=== PATIENT | male | born 1970 | race Asian ===

== ENCOUNTER 2017-12-08 08:00 | Outpatient (CLI) | payer OTHER ==
[2017-12-08 19:03] LABS: BASOPHILS % (AUTO) 0.6 %; EOSINOPHILS % (AUTO) 0.7 %; LYMPHOCYTES # (AUTO) 1.5 10^3/uL (1.5-3.5); LYMPHOCYTES % (AUTO) 25.3 %; MEAN CORPUSCULAR HEMOGLOBIN 33.8 pg (27.0-31.0); MEAN CORPUSCULAR HGB CONC 34.2 g/dL (32.0-36.0); MEAN CORPUSCULAR VOLUME 98.8 fL (80.0-94.0); MEAN PLATELET VOLUME 7.3 fL (7.4-11.4); MONOCYTES # (AUTO) 0.6 10^3/uL (0.0-1.0); MONOCYTES % (AUTO) 10.4 %; NEUTROPHILS # (AUTO) 3.7 10^3/uL (1.5-6.6); PLT - PLATELET COUNT 203 10^3/uL (130-450); RED BLOOD COUNT 4.45 10^6/uL (4.70-6.10); RED CELL DISTRIBUTION WIDTH 12.2 % (12.0-15.0); WHITE BLOOD COUNT 5.9 x10^3/uL (4.8-10.8)
[2017-12-08 19:25] LABS: HB2 TOTAL 16.4 g/dL; HEMOGLOBIN A1C 0.48 g/dL; HEMOGLOBIN A1C % 4.8 % (4.6-6.2)
[2017-12-08 19:33] LABS: ALBUMIN 4.9 g/dL (3.2-5.5); ALBUMIN/GLOBULIN RATIO 1.9 (1.0-2.2); ALKALINE PHOSPHATASE 65 IU/L (42-121); ALT ALANINE AMINOTRANSFERASE 27 IU/L (10-60); AST ASPARTATE AMINOTRANSFERASE 24 IU/L (10-42); BUN - BLOOD UREA NITROGEN 17 mg/dL (6-20); CALCIUM 9.3 mg/dL (8.5-10.3); CARBON DIOXIDE - CO2 27 mmol/L (21-32); CHLORIDE 100 mmol/L (101-111); CHOL/HDL RATIO 3.8 (<5.0); CHOLESTEROL 211 mg/dL; GFR - MDRD 80 (>89); GLUCOSE 94 mg/dL (70-100); HDL CHOLESTEROL 56 mg/dL; LDL CHOLESTEROL,CALCULATED 117 mg/dL; LDL/HDL RATIO 2.1 (<3.6); SODIUM 136 mmol/L (135-145); TOTAL PROTEIN 7.5 g/dL (6.7-8.2); VLDL CHOLESTEROL 38 mg/dL
== END 2017-12-08 08:01 | disposition home or self-care (01) ==
LOC: LAB.WCP 08:00
PROVIDERS: ATTEND Family Medicine
DX: Z00.00 Encounter for general adult medical examination without abnormal findings (principal); R68.82 Decreased libido; F52.21 Male erectile disorder; R53.83 Other fatigue
CPT/HCPCS: 36415; 80053; 80061; 83036; 83721; 84403; 84443; 85025

== ENCOUNTER 2018-01-12 13:41 | Outpatient (CLI) | payer OTHER ==
[2018-01-12 19:32] LABS: BASOPHILS # (AUTO) 0.1 10^3/uL (0.0-0.1); BASOPHILS % (AUTO) 0.9 %; EOSINOPHILS % (AUTO) 0.3 %; HGB - HEMOGLOBIN 14.6 g/dL (14.0-18.0); LYMPHOCYTES # (AUTO) 1.7 10^3/uL (1.5-3.5); MEAN CORPUSCULAR HGB CONC 34.1 g/dL (32.0-36.0); MEAN CORPUSCULAR VOLUME 99.8 fL (80.0-94.0); MEAN PLATELET VOLUME 7.1 fL (7.4-11.4); MONOCYTES # (AUTO) 0.4 10^3/uL (0.0-1.0); MONOCYTES % (AUTO) 7.4 %; NEUTROPHILS # (AUTO) 3.6 10^3/uL (1.5-6.6); NEUTROPHILS % (AUTO) 61.4 %; PLT - PLATELET COUNT 236 10^3/uL (130-450); RED CELL DISTRIBUTION WIDTH 12.5 % (12.0-15.0); WHITE BLOOD COUNT 5.8 x10^3/uL (4.8-10.8)
== END 2018-01-12 13:42 | disposition home or self-care (01) ==
LOC: LAB.WCP 13:41
PROVIDERS: ATTEND Family Medicine
DX: Z12.5 Encounter for screening for malignant neoplasm of prostate (principal); E29.8 Other testicular dysfunction
CPT/HCPCS: 36415; 84153; 84403; 85025

== ENCOUNTER 2018-12-16 02:07 | Emergency (ER) | payer OTHER ==
--- NOTE | 2018-12-16 02:17 | ED Physician Documentation ---
History of Present Illness - Stated complaint Stated Complaint: BLURRY VISION/DIZZY - Chief complaint Chief Complaint: Neuro - History obtained from History obtained from: Patient - History of Present Illness Timing: Other (awoke at 1 AM with symptoms. Last known normal was when he went to sleep at approximately 10 PM) Pain level max: 0 Pain level now: 0 Improved by: no ameliorating factors Worsened by: no exacerbating factors Associated symptoms: dyspnea, nausea/vomiting, blurry vision, numbness - Additonal information Additional information: went to sleep 10 PM asymptomatic, approximately 1 hour after using marijuana (oil; he says this was the first time he ever tried marijuana). At 1 AM, he woke with bilateral blurry vision, dyspnea, nausea and vomiting, numbness left side of body (left face, arm, leg), and generalized weakness. Denies MCNAIR. Review of Systems Constitutional: reports: Reviewed and negative Eyes: reports: Decreased vision. denies: Loss of vision, Photophobia Ears: reports: Reviewed and negative Nose: reports: Reviewed and negative Throat: reports: Reviewed and negative Cardiac: reports: Reviewed and negative Respiratory: reports: Dyspnea. denies: Cough GI: reports: Nausea, Vomiting. denies: Abdominal Pain : denies: Dysuria, Frequency, Incontinent Skin: reports: Reviewed and negative Musculoskeletal: reports: Reviewed and negative Neurologic: reports: Generalized weakness, Numbness. denies: Focal weakness, Headache PD PAST MEDICAL HISTORY - Past Medical History Past Medical History: No - Past Surgical History Past Surgical History: No - Present Medications Home Medications: Ambulatory Orders Medication Instructions Recorded Confirmed Sildenafil Citrate [Viagra] 225 mg PO DAILY 12/16/18 12/16/18 - Allergies Allergies/Adverse Reactions: Allergies Allergy/AdvReac Type Severity Reaction Status Date / Time No Known Drug Allergies Allergy Verified 12/16/18 02:24 - Living Situation Living Arrangement: reports: At home PD ED PE NORMAL - Vitals Vital signs reviewed: Yes - General General: Alert and oriented X 3, Well developed/nourished, Other (appears anxious; tremulous at times during H+P (generalized tremulous, mostly in BLE)) - HEENT HEENT: PERRL, EOMI, Moist mucous membranes, Pharynx benign - Neck Neck: Supple, no meningeal sign, No JVD - Cardiac Cardiac: No murmur - Respiratory Respiratory: No respiratory distress, Clear bilaterally - Abdomen Abdomen: Soft, Non tender - Back Back: No spinal TTP - Derm Derm: Normal color, Warm and dry - Extremities Extremities: Normal ROM s pain, No edema - Neuro Neuro: Alert and oriented X 3, 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, No motor deficit, No sensory deficit, Normal speech Eye Opening: Spontaneous Motor: Obeys Commands Verbal: Oriented GCS Score: 15 PD ED PE EXPANDED - Cardiac Cardiac: Tachy, Regular Rhythm Results - Vitals Vitals: Vital Signs - 24 hr 12/16/18 12/16/18 12/16/18 02:12 02:33 03:21 Temperature 36.1 C L Heart Rate 107 H 100 83 Respiratory 18 20 16 Rate Blood Pressure 141/78 H 154/92 H 128/83 H O2 Saturation 96 95 95 12/16/18 12/16/18 12/16/18 03:58 05:09 06:00 Temperature 37.5 C 36.2 C L Heart Rate 79 85 86 Respiratory 15 18 18 Rate Blood Pressure 118/77 118/75 129/85 H O2 Saturation 96 96 96 Oxygen O2 Source Room air - EKG (time done) No standard instances Rate: Rate (enter#) (104), Tachy Rhythm: Sinus tachycardia [place]: Normal Intervals: Normal ND QRS: Normal Ischemia: Normal ST segments - Labs Labs: Laboratory Tests 12/16/18 12/16/18 12/16/18 02:20 02:20 02:20 WBC 5.6 RBC 4.23 L Hgb 14.7 Hct 41.5 L MCV 98.3 H MCH 34.7 H MCHC 35.3 RDW 12.7 Plt Count 197 MPV 7.1 L Neut # (Auto) 3.3 Lymph # (Auto) 1.6 [place] # (Auto) 0.5 Eos # (Auto) 0.0 Baso # (Auto) 0.1 Absolute Nucleated RBC 0.00 Nucleated RBC % 0.0 Sodium 137 Potassium 2.9 L Chloride 100 L Carbon Dioxide 27 Anion Gap 10.0 BUN 12 Creatinine 0.9 Estimated GFR (MDRD) 90 Glucose 163 H Calcium 9.0 Troponin I < 0.04 - Rads (name of study) CT head Radiology: Prelim report reviewed, See rad report chest xray Radiology: Prelim report reviewed, See rad report PD MEDICAL DECISION MAKING - ED course Complexity details: reviewed results, re-evaluated patient, considered differential, d/w patient ED course: Constellation of signs and symptoms are not c/w CVA. Reassuring test results including CXR, EKG, CTH, and blood tests (hypokalemia noted). Symptoms began shortly after patient used marijuana oil, and he says this is the first time he ever tried marijuana; this could potentially be the cause of his symptoms, but I advised him to f/u with PMD, as further testing might be warranted. I also instructed him to return to the ED immediately if symptoms worsen in any way. During ED stay, on serial reexaminations, his symptoms steadily improved and his symptoms were resolved prior to discharge except some residual difficulty in focusing (blurry vision) in both eyes, but nearly at baseline. Normal retina exam bilaterally prior to discharge (performed with panophthalmoscope) Departure - Departure Disposition: 01 Home, Self Care Clinical Impression: Change in vision, Paresthesia, Hypokalemia Condition: Good Instructions: ED Blurred Vision, ED Potassium Deficiency, ED Paraesthesias Follow-Up: Chay Clemente DO [Primary Care Provider] - (Call in the morning to arrange for next available appointment) Discharge Date/Time: 12/16/18 06:00 NIHSS - Level of Consciousness Level of consciousness: (0) Alert, Keenly responsive LOC Questions: (0) Answers both Q's correct LOC Commands: (0) Performs both correctly - Gaze Best Gaze: (0) Normal - Visual Visual: (0) No loss - Facial Palsy Facial Palsy: (0) Normal, symmetrical movement - Motor Arms (both separate) Motor Arm (right): (0) No drift Motor Arm (left): (0) No drift - Motor Legs (both separate) Motor Leg (right): (0) No drift Motor Leg (left): (0) No drift - Limb Ataxia Limb Ataxia: (0) Absent - Sensory Sensory: (0) Normal - Best Language Best Language: (0) No aphasia - Dysarthria Dysarthria: (0) Normal - Extinction and Inattention (formally neg Extinction and inattention: (0) No abnormality - Total Score/Results Total Score/Result: 0
[2018-12-16 02:58] LABS: BASOPHILS # (AUTO) 0.1 10^3/uL (0.0-0.1); BASOPHILS % (AUTO) 1.5 %; EOSINOPHILS % (AUTO) 0.7 %; HGB - HEMOGLOBIN 14.7 g/dL (14.0-18.0); LYMPHOCYTES # (AUTO) 1.6 10^3/uL (1.5-3.5); LYMPHOCYTES % (AUTO) 29.6 %; MEAN CORPUSCULAR HEMOGLOBIN 34.7 pg (27.0-31.0); MEAN CORPUSCULAR HGB CONC 35.3 g/dL (32.0-36.0); MEAN CORPUSCULAR VOLUME 98.3 fL (80.0-94.0); MEAN PLATELET VOLUME 7.1 fL (7.4-11.4); MONOCYTES # (AUTO) 0.5 10^3/uL (0.0-1.0); MONOCYTES % (AUTO) 9.1 %; NEUTROPHILS # (AUTO) 3.3 10^3/uL (1.5-6.6); NEUTROPHILS % (AUTO) 59.1 %; PLT - PLATELET COUNT 197 10^3/uL (130-450); RED BLOOD COUNT 4.23 10^6/uL (4.70-6.10); RED CELL DISTRIBUTION WIDTH 12.7 % (12.0-15.0); WHITE BLOOD COUNT 5.6 x10^3/uL (4.8-10.8)
[2018-12-16 03:03] LABS: CREATININE 0.9 mg/dL (0.6-1.2)
--- NOTE | 2018-12-16 03:22 | XRAY Report ---
Reason: dyspnea Procedure Date: 12/16/2018 Accession Number: [id number] / [id number] Procedure: XR - Chest 2 View X-Ray CPT Code: 50120 FULL RESULT: EXAM: CHEST RADIOGRAPHY EXAM DATE: 12/16/2018 03:16 AM. CLINICAL HISTORY: Dyspnea. COMPARISON: None. TECHNIQUE: 2 views. FINDINGS: Lungs/Pleura: No focal opacities evident. No pleural effusion. No pneumothorax. Normal volumes. Mediastinum: Heart and mediastinal contours are unremarkable. Other: None. IMPRESSION: Normal 2-view chest radiography. RADIA
--- NOTE | 2018-12-16 03:32 | CT Report ---
Reason: left-sided numbness, visual changes Procedure Date: 12/16/2018 Accession Number: [id number] / [id number] Procedure: CT - HEAD WO CPT Code: FULL RESULT: EXAM: CT HEAD EXAM DATE: 12/16/2018 03:13 AM. CLINICAL HISTORY: Left-sided numbness, visual changes. COMPARISON: HEAD 08/29/2007 12:31 AM. TECHNIQUE: Multiaxial CT images were obtained from the foramen magnum to the vertex. Reformats: Sagittal and coronal. IV contrast: None. In accordance with CT protocol optimization, one or more of the following dose reduction techniques were utilized for this exam: automated exposure control, adjustment of mA and/or KV based on patient size, or use of iterative reconstructive technique. FINDINGS: Parenchyma: No intraparenchymal hemorrhage. No evidence of mass, midline shift, or CT findings of infarction. Yuan-white differentiation is distinct. Extraaxial Spaces: Normal for age. No subdural or epidural collections identified. Ventricles: Normal in size and position. Sinuses and Orbits: Old bilateral mastoidectomy changes are again noted. The orbits and paranasal sinuses are unremarkable. Bones: No evidence of fracture or calvarial defect. IMPRESSION: No acute intracranial process. RADIA
[2018-12-16] MEDS ORDERED: POTASSIUM BICARB 25 MEQ TABLET PO STA (04:34)
[2018-12-16 06:11] VITALS: BP 129/85
== END 2018-12-16 06:00 | disposition home or self-care (01) ==
LOC: ED 02:07
DX: H53.9 Unspecified visual disturbance (principal); R20.2 Paresthesia of skin; E87.6 Hypokalemia; T40.7X5A Adverse effect of cannabis (derivatives), initial encounter; R00.0 Tachycardia, unspecified
CPT/HCPCS: 36415; 70450; 71046; 80048; 84484; 85025; 93005; 99284; A9270

== ENCOUNTER 2019-01-28 13:01 | Outpatient (CLI) | payer OTHER ==
--- NOTE | 2019-01-28 21:48 | XRAY Report ---
Reason: DYSPHAGIA Procedure Date: 01/28/2019 Accession Number: [id number] / [id number] Procedure: FL - Esophogram CPT Code: FULL RESULT: EXAM: BARIUM ESOPHAGRAM EXAM DATE: 01/28/2019 01:49 PM. CLINICAL HISTORY: DYSPHAGIA. COMPARISONS: None. TECHNIQUE: Routine double contrast esophagram. Fluoroscopy Time: 2 minutes 4 seconds. Number of Images: 36. FINDINGS: Swallowing Mechanism: Normal. No tracheal aspiration or penetration. Esophageal Motility: Normal peristaltic stripping wave. Mucosa: Normal. No ulcerations or masses. Gastroesophageal Junction: Small hiatal hernia. Full column reflux in the supine position with leg raise maneuver. Other: None. IMPRESSION: 1. Small hiatal hernia with full column reflux with maneuvers. No esophageal stricture or mucosal ulceration noted. 2. Normal swallowing mechanism. RADIA
== END 2019-01-28 13:02 | disposition home or self-care (01) ==
LOC: DI 13:01
PROVIDERS: ATTEND Family Medicine
DX: K44.9 Diaphragmatic hernia without obstruction or gangrene (principal); K21.9 Gastro-esophageal reflux disease without esophagitis
CPT/HCPCS: 74220

== ENCOUNTER 2020-07-18 08:00 | Outpatient (CLI) | payer OTHER ==
[2020-07-18 12:13] LABS: BASOPHILS % (AUTO) 0.8 %; EOSINOPHILS # (AUTO) 0.1 10^3/uL (0.0-0.7); HGB - HEMOGLOBIN 15.5 g/dL (14.0-18.0); LYMPHOCYTES # (AUTO) 1.3 10^3/uL (1.5-3.5); LYMPHOCYTES % (AUTO) 24.3 %; MEAN CORPUSCULAR HEMOGLOBIN 35.3 pg (27.0-31.0); MEAN CORPUSCULAR HGB CONC 34.8 g/dL (32.0-36.0); MEAN CORPUSCULAR VOLUME 101.4 fL (80.0-94.0); MEAN PLATELET VOLUME 9.4 fL (7.4-11.4); MONOCYTES # (AUTO) 0.5 10^3/uL (0.0-1.0); MONOCYTES % (AUTO) 10.3 %; NEUTROPHILS # (AUTO) 3.3 10^3/uL (1.5-6.6); NEUTROPHILS % (AUTO) 63.2 %; PLT - PLATELET COUNT 192 10^3/uL (130-450); RED BLOOD COUNT 4.39 10^6/uL (4.70-6.10); RED CELL DISTRIBUTION WIDTH 11.8 % (12.0-15.0); WHITE BLOOD COUNT 5.2 x10^3/uL (4.8-10.8)
[2020-07-18 12:32] LABS: ALBUMIN 4.5 g/dL (3.2-5.5); ALBUMIN/GLOBULIN RATIO 1.6 (1.0-2.2); ALKALINE PHOSPHATASE 66 IU/L (42-121); ALT ALANINE AMINOTRANSFERASE 53 IU/L (10-60); AST ASPARTATE AMINOTRANSFERASE 33 IU/L (10-42); BILIRUBIN,TOTAL 0.9 mg/dL (0.2-1.0); BUN - BLOOD UREA NITROGEN 17 mg/dL (6-20); CALCIUM 9.5 mg/dL (8.5-10.3); CARBON DIOXIDE - CO2 28 mmol/L (21-32); CHLORIDE 100 mmol/L (101-111); CHOL/HDL RATIO 3.7 (<5.0); CHOLESTEROL 204 mg/dL; GLUCOSE 102 mg/dL (70-100); HDL CHOLESTEROL 55 mg/dL; LDL CHOLESTEROL,CALCULATED 102 mg/dL; LDL/HDL RATIO 1.9 (<3.6); SODIUM 138 mmol/L (135-145); TOTAL PROTEIN 7.3 g/dL (6.7-8.2); VLDL CHOLESTEROL 47 mg/dL
[2020-07-18 12:46] LABS: PROLACTIN 4.47 ng/mL
[2020-07-18 13:08] LABS: LUTEINIZING HORMONE 1.86 mIU/mL
== END 2020-07-18 23:59 | disposition home or self-care (01) ==
LOC: LAB.WCP 08:00
PROVIDERS: ATTEND Internal Medicine
DX: E29.8 Other testicular dysfunction (principal); F32.9 Major depressive disorder, single episode, unspecified; Z13.220 Encounter for screening for lipoid disorders
CPT/HCPCS: 36415; 80053; 80061; 83002; 83721; 84146; 84403; 84443; 85025

== ENCOUNTER 2020-07-27 08:00 | Outpatient (CLI) | payer OTHER ==
[2020-07-27 12:10] LABS: % IRON SATURATION 45 % (20-50); IRON 141 ug/dL (45-182); TOTAL IRON BINDING CAPACITY 316 ug/dL (250-450); TRANSFERRIN 226 mg/dL (180-329)
[2020-07-27 12:15] LABS: FREE T4 (FREE THYROXINE) 0.74 ng/dL (0.58-1.64)
[2020-07-27 12:39] LABS: FOLLICLE STIMULATING HORMONE 3.26 mIU/mL
== END 2020-07-27 23:59 | disposition home or self-care (01) ==
LOC: LAB.WCP 08:00
PROVIDERS: ATTEND Internal Medicine
DX: E29.8 Other testicular dysfunction (principal)
CPT/HCPCS: 36415; 82533; 82728; 83001; 83540; 84439; 84466

== ENCOUNTER 2020-08-01 08:00 | Outpatient (CLI) | payer OTHER | END 2020-08-01 23:59 | LOC: LAB.WCP 08:00 | PROVIDERS: ATTEND Internal Medicine | DX: E83.10 Disorder of iron metabolism, unspecified (principal) | CPT/HCPCS: 36415; 81256 ==

== ENCOUNTER 2021-01-25 14:51 | Outpatient (CLI) | payer OTHER | END 2021-01-25 14:52 | disposition critical access hospital (66) | LOC: EMS 14:51 | DX: S50.312A Abrasion of left elbow, initial encounter (principal); S50.311A Abrasion of right elbow, initial encounter; W19.XXXA Unspecified fall, initial encounter; F10.129 Alcohol abuse with intoxication, unspecified | CPT/HCPCS: A0425; A0429 ==

== ENCOUNTER 2021-01-25 15:05 | Emergency (ER) | payer OTHER ==
--- NOTE | 2021-01-25 15:13 | ED Physician Documentation ---
PD HPI Fall - Stated complaint Stated Complaint: FALL - History obtained from History obtained from: Patient, EMS - Additional information Additional information: Reportedly drank a gallon of vodka this morning and then was found at the bottom of the stairs face. 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 Patient does not remember falling. He admits to alcohol use. Review of Systems Unable to obtain: Intoxicated PD PAST MEDICAL HISTORY - Past Medical History Neuro: CVA - Past Surgical History Past Surgical History: No HEENT: Tonsil/Adenoidectomy - Present Medications Home Medications: Ambulatory Orders Medication Instructions Recorded Confirmed Omeprazole 1 cap PO DAILY 01/25/21 01/25/21 traMADol [Ultram] 2 tab PO DAILY 01/25/21 01/25/21 - Allergies Allergies/Adverse Reactions: Allergies Allergy/AdvReac Type Severity Reaction Status Date / Time No Known Drug Allergies Allergy Verified 01/25/21 15:55 - Social History Does the pt smoke?: No Smoking Status: Never smoker Does the pt drink ETOH?: Yes Does the pt have substance abuse?: No - Immunizations Immunizations are current?: Yes - POLST Patient has POLST: No PD ED PE NORMAL - Vitals Vital signs reviewed: Yes - General General: Other (He is alert oriented to person place and time but slow to answer questions and a poor historian to events. Slurred speech) - HEENT HEENT: PERRL, EOMI (With nystagmus) - Neck Neck: No bony TTP (But maintained in a c-collar pending imaging given intoxication) - Cardiac Cardiac: RRR, No murmur - Respiratory Respiratory: No respiratory distress, Clear bilaterally - Abdomen Abdomen: Non tender, Non distended - Back Back: No CVA TTP, No spinal TTP - Derm Derm: Normal color, Warm and dry - Neuro Neuro: Alert and oriented X 3, No motor deficit, No sensory deficit, Other (slow to answer questions but remembers drinking and knows the date) Eye Opening: Spontaneous Motor: Obeys Commands Verbal: Oriented GCS Score: 15 Results - Vitals Vitals: Vital Signs - 24 hr 01/25/21 01/25/21 01/25/21 15:11 15:47 15:48 Temperature 36.8 C Heart Rate 82 74 79 Respiratory 20 16 Rate Blood Pressure 114/84 H 123/91 H 123/91 H O2 Saturation 97 96 94 01/25/21 01/25/21 01/25/21 16:22 16:30 17:16 Temperature Heart Rate 79 75 85 Respiratory 17 18 16 Rate Blood Pressure 124/86 H 100/60 105/67 O2 Saturation 99 01/25/21 01/25/21 01/25/21 17:39 18:00 19:00 Temperature 36.8 C Heart Rate 84 81 81 Respiratory 16 18 18 Rate Blood Pressure 108/59 L 114/81 H 122/67 O2 Saturation 98 98 01/25/21 01/25/21 20:48 21:28 Temperature 36.8 C 36.9 C Heart Rate 79 88 Respiratory 18 16 Rate Blood Pressure 107/60 117/59 L O2 Saturation 98 100 Oxygen O2 Source Room air - Labs Labs: Laboratory Tests 01/25/21 01/25/21 15:14 15:14 WBC 5.7 RBC 4.95 Hgb 16.3 Hct 45.1 MCV 91.1 MCH 32.9 H MCHC 36.1 H RDW 11.9 L Plt Count 196 MPV 8.4 Neut # (Auto) 2.7 Lymph # (Auto) 2.4 [place] # (Auto) 0.5 Eos # (Auto) 0.0 Baso # (Auto) 0.0 Absolute Nucleated RBC 0.00 Nucleated RBC % 0.0 Sodium 137 Potassium 2.8 L Chloride 94 L Carbon Dioxide 29 Anion Gap 14.0 H BUN 9 Creatinine 0.8 Estimated GFR (MDRD) 103 Glucose 116 H Calcium 8.8 Magnesium 2.3 Total Bilirubin 1.0 AST 27 ALT 31 Alkaline Phosphatase 80 Total Protein 7.2 Albumin 4.6 Globulin 2.6 Albumin/Globulin Ratio 1.8 Lipase 30 Ethyl Alcohol 372.9 - Rads (name of study) CT of the head and cervical spine Radiology: EMP read contemporaneously (Negative for acute trauma) PD MEDICAL DECISION MAKING - ED course ED course: 50-year-old gentleman presents by ambulance after becoming very intoxicated. Unclear if he actually fell. Ex- said she left him and he was sitting on the stairs which she eventually found him just at the bottom of. So if he fell it was only down a few stairs. There is no evidence of injury and head and C- spine CTs were done out of an abundance of caution given his intoxication which were negative. Blood alcohol was 372 so will require some significant time to sober up before reevaluation. Of note there is a concern for depression and suicidal ideation and will need social work consultation unless he denies need when clinically sober. At around 10 PM he was still mildly intoxicated but requested discharge. His supportive ex- with whom he lives is at the bedside and is willing to take him home and watch him and to consider returning in the morning for social work evaluation. Departure - Departure Disposition: 01 Home, Self Care Clinical Impression: Fall Qualifiers: Encounter type: initial encounter Qualified Code(s): W19.XXXA - Unspecified fall, initial encounter Alcohol intoxication Qualifiers: Complication of substance-induced condition: with delirium Qualified Code(s): F10.921 - Alcohol use, unspecified with intoxication delirium Condition: Good Record reviewed to determine appropriate education?: Yes Instructions: ED Alcohol Intoxication Comments: Return in the morning if you still want to seek social work consultation. Sooner for new or worsening symptoms. Do not drive for the next 24 hours. Abstain from alcohol.
[2021-01-25 15:19] LABS: BASOPHILS % (AUTO) 0.7 %; EOSINOPHILS % (AUTO) 0.5 %; HCT - HEMATOCRIT 45.1 % (42.0-52.0); HGB - HEMOGLOBIN 16.3 g/dL (14.0-18.0); LYMPHOCYTES # (AUTO) 2.4 10^3/uL (1.5-3.5); LYMPHOCYTES % (AUTO) 41.8 %; MEAN CORPUSCULAR HEMOGLOBIN 32.9 pg (27.0-31.0); MEAN CORPUSCULAR HGB CONC 36.1 g/dL (32.0-36.0); MEAN CORPUSCULAR VOLUME 91.1 fL (80.0-94.0); MEAN PLATELET VOLUME 8.4 fL (7.4-11.4); MONOCYTES # (AUTO) 0.5 10^3/uL (0.0-1.0); MONOCYTES % (AUTO) 8.8 %; NEUTROPHILS # (AUTO) 2.7 10^3/uL (1.5-6.6); NEUTROPHILS % (AUTO) 47.8 %; PLT - PLATELET COUNT 196 10^3/uL (130-450); RED BLOOD COUNT 4.95 10^6/uL (4.70-6.10); RED CELL DISTRIBUTION WIDTH 11.9 % (12.0-15.0); WHITE BLOOD COUNT 5.7 x10^3/uL (4.8-10.8)
[2021-01-25 15:32] LABS: ALBUMIN 4.6 g/dL (3.2-5.5); ALBUMIN/GLOBULIN RATIO 1.8 (1.0-2.2); CALCIUM 8.8 mg/dL (8.5-10.3); CREATININE 0.8 mg/dL (0.6-1.2); ETOH - ETHANOL 372.9 mg/dL; MAGNESIUM 2.3 mg/dL (1.7-2.8); POTASSIUM 2.8 mmol/L (3.5-5.0); TOTAL PROTEIN 7.2 g/dL (6.7-8.2)
[2021-01-25] MEDS ORDERED: POTASSIUM CHLOR 10 MEQ/100 ML 10 MEQ/100 ML BAG IV ONE (15:35)
[2021-01-25] MEDS ORDERED: THIAMINE INJ 100 MG in SODIUM CHLORIDE 0.9% 50 ML IV STA (15:35)
[2021-01-25] MEDS ORDERED: LACTATED RINGERS 1,000 ML IV STA (15:35)
--- NOTE | 2021-01-25 15:43 | CT Report ---
PROCEDURE: HEAD WO INDICATIONS: poss head inj, etoh TECHNIQUE: Noncontrast 4.5 mm thick angled axial sections acquired from the foramen magnum to the vertex. For r adiation dose reduction, the following was used: automated exposure control, adjustment of mA and/or kV according to patient size. COMPARISON: None. FINDINGS: Image quality: Excellent. CSF spaces: Basal cisterns are patent. No extra-axial fluid collections. Ventricles are normal in size and shape. Brain: No midline shift. No intracranial masses or hemorrhage. Yuan-white matter interface is norm al. Skull and face: Left canal wall down mastoidectomy and right canal wall up mastoidectomy. The visuali zed facial bones are intact, without suspicious lesions. Sinuses: Visualized sinuses and mastoids are clear. IMPRESSION: No acute intracranial disease process. Reviewed by: Brynn Fuentes MD, PhD on 01/25/2021 3:41 PM PDT Approved by: Brynn Fuentes MD, PhD on 01/25/2021 3:41 PM PDT Station ID: [id number]
--- NOTE | 2021-01-25 15:48 | CT Report ---
PROCEDURE: CERVICAL SPINE WO INDICATIONS: Injury, etoh TECHNIQUE: Noncontrast 3 mm thick sections acquired from the skull base to the T4 level. Sagittal and coronal r eformats were then constructed. For radiation dose reduction, the following was used: automated exp osure control, adjustment of mA and/or kV according to patient size. COMPARISON: None. FINDINGS: Image quality: Excellent. Bones: No fractures or dislocations. Visualized superior ribs are intact. Spine degenerative disc d isease and facet arthropathy are noted. Soft tissues: Prevertebral soft tissues are normal in thickness. No paravertebral hematomas. No ap ical pneumothoraces. IMPRESSION: No fracture. No acute osseous lesion. If there is continued clinical concern for pathology, then MRI should be considered for further evaluation. Reviewed by: Brynn Fuentes MD, PhD on 01/25/2021 3:47 PM PDT Approved by: Brynn Fuentes MD, PhD on 01/25/2021 3:47 PM PDT Station ID: [id number]
[2021-01-25] MEDS ORDERED: PANTOPRAZOLE 40 MG VIAL IVP STA (15:58)
[2021-01-25 21:28] VITALS: BP 117/59
== END 2021-01-25 22:14 | disposition home or self-care (01) ==
LOC: EDUNIT# → ED 15:05 → SUPCPDRO 15:05 → ED 22:14
DX: F10.921 Alcohol use, unspecified with intoxication delirium (principal); W10.9XXA Fall (on) (from) unspecified stairs and steps, initial encounter
CPT/HCPCS: 36415; 70450; 72125; 80053; 80320; 83690; 83735; 85025; 96361; 96365; 96367; 96375; 99281; 99284; J3411; J7040; J7120

== ENCOUNTER 2021-01-26 10:29 | Emergency (ER) | payer OTHER ==
[2021-01-26 10:53] VITALS: BP 148/92
--- NOTE | 2021-01-26 11:01 | ED Physician Documentation ---
PD HPI MHE - Stated complaint Stated Complaint: FOLLOW UP - Chief complaint Chief Complaint: Neuro - History obtained from History obtained from: Patient, Family (his ex- is here with him and is supportive for him, says she will be helping him with this.) - History of Present Illness Primary symptom: Depression, Anxiety, Other (some alcohol withdrawal). No: Suicidal ideation, Suicide attempt Timing - onset: Today (he was here yesterday with alcohol intoxiation, having binged heavily for the past 2-3 weeks. Had been sober for 6 months prior but recent stresses with his daughter and some at work. He is stopping drinking again and requests meds for anxiety and wants to start some antidepressant.) Contributing factors: Family, Work, Substance abuse - ETOH Similar symptoms before: Diagnosis (history of alxoholism with binge drinking interspursed with months of sobriety, most recently 6 months sober prior to the past 2-3 weeks.) Recently seen: Emergency Dept (yesterday for possible fall versus just passed out intoxicated at bottom of stairs.) Review of Systems Constitutional: denies: Fever, Chills Nose: denies: Rhinorrhea / runny nose, Congestion Throat: denies: Sore throat Cardiac: denies: Chest pain / pressure Respiratory: denies: Cough GI: reports: Nausea. denies: Abdominal Pain, Vomiting, Diarrhea : denies: Dysuria, Frequency Skin: denies: Abrasion (s), Laceration (s) Musculoskeletal: denies: Extremity pain Neurologic: denies: Seizure, Altered mental status, Headache Psychiatric: reports: Depressed, Anxiety, Insomnia. denies: Suicidal, Homicidal, Hallucinations Endocrine: denies: Weight loss Immunocompromised: denies: Immunocompromised PD PAST MEDICAL HISTORY - Past Medical History Neuro: CVA, Other (denies alcohol related seizures nor DTs.) - Past Surgical History Past Surgical History: No HEENT: Tonsil/Adenoidectomy - Present Medications Home Medications: Ambulatory Orders Medication Instructions Recorded Confirmed Omeprazole 1 cap PO DAILY 01/25/21 01/25/21 traMADol [Ultram] 2 tab PO DAILY 01/25/21 01/25/21 LORazepam [Ativan] 1 mg PO BID PRN #20 tablet 01/26/21 Ondansetron Odt [Zofran] 4 mg TL Q6H PRN #20 tablet 01/26/21 buPROPion [Wellbutrin Sr] 150 mg PO BID #40 tablet 01/26/21 - Allergies Allergies/Adverse Reactions: Allergies Allergy/AdvReac Type Severity Reaction Status Date / Time No Known Drug Allergies Allergy Verified 01/26/21 10:53 - Social History Does the pt smoke?: No Smoking Status: Never smoker Does the pt drink ETOH?: Yes Does the pt have substance abuse?: No - Immunizations Immunizations are current?: Yes - POLST Patient has POLST: No PD ED PE NORMAL - Vitals Vital signs reviewed: Yes - General General: Alert and oriented X 3, No acute distress, Well developed/nourished - HEENT HEENT: Pharynx benign. No: Moist mucous membranes - Neck Neck: Supple, no meningeal sign, No adenopathy - Cardiac Cardiac: RRR, No murmur - Respiratory Respiratory: Clear bilaterally - Abdomen Abdomen: Soft, Non tender - Derm Derm: Normal color, Warm and dry - Extremities Extremities: Normal ROM s pain - Neuro Neuro: Alert and oriented X 3, No motor deficit, Normal speech Eye Opening: Spontaneous Motor: Obeys Commands Verbal: Oriented GCS Score: 15 - Psych Psych: No: Normal mood (seems depressed; denies suicidality) Results - Vitals Vitals: Vital Signs - 24 hr 01/26/21 10:46 Temperature 36.9 C Heart Rate 84 Respiratory 15 Rate Blood Pressure 148/92 H O2 Saturation 99 Oxygen O2 Source Room air - Labs Labs: Laboratory Tests 01/26/21 01/26/21 01/26/21 11:34 11:34 11:34 WBC 9.2 RBC 4.71 Hgb 15.5 Hct 43.9 MCV 93.2 MCH 32.9 H MCHC 35.3 RDW 11.9 L Plt Count 176 MPV 8.4 Neut # (Auto) 7.6 H Lymph # (Auto) 1.0 L Zapata # (Auto) 0.6 Eos # (Auto) 0.0 Baso # (Auto) 0.0 Absolute Nucleated RBC 0.00 Nucleated RBC % 0.0 Sodium 136 Potassium 3.6 Chloride 92 L Carbon Dioxide 33 H Anion Gap 11.0 BUN 11 Creatinine 0.9 Estimated GFR (MDRD) 90 Glucose 174 H Calcium 9.2 Magnesium 1.8 Total Bilirubin 1.5 H AST 27 ALT 29 Alkaline Phosphatase 83 Total Protein 7.2 Albumin 4.5 Globulin 2.7 Albumin/Globulin Ratio 1.7 Lipase 23 TSH 1.31 Urine Color Urine Clarity Urine pH Ur Specific Moffat Urine Protein Urine Glucose (UA) Urine Ketones Urine Occult Blood Urine Nitrite Urine Bilirubin Urine Urobilinogen Ur Leukocyte Esterase Ur Microscopic Review Urine Culture Comments Salicylates < 6.0 Urine Opiates Screen Ur Oxycodone Screen Urine Methadone Screen Ur Propoxyphene Screen Acetaminophen < 10 L Ur Barbiturates Screen Ur Tricyclics Screen Ur Phencyclidine Scrn Ur Amphetamine Screen U Methamphetamines Scrn U Benzodiazepines Scrn Urine Cocaine Screen U Cannabinoids Screen Ethyl Alcohol < 5.0 01/26/21 12:24 WBC RBC Hgb Hct MCV MCH MCHC RDW Plt Count MPV Neut # (Auto) Lymph # (Auto) Zapata # (Auto) Eos # (Auto) Baso # (Auto) Absolute Nucleated RBC Nucleated RBC % Sodium Potassium Chloride Carbon Dioxide Anion Gap BUN Creatinine Estimated GFR (MDRD) Glucose Calcium Magnesium Total Bilirubin AST ALT Alkaline Phosphatase Total Protein Albumin Globulin Albumin/Globulin Ratio Lipase TSH Urine Color YELLOW Urine Clarity CLEAR Urine pH 7.0 Ur Specific Moffat 1.020 Urine Protein NEGATIVE Urine Glucose (UA) NEGATIVE Urine Ketones TRACE Urine Occult Blood NEGATIVE Urine Nitrite NEGATIVE Urine Bilirubin NEGATIVE Urine Urobilinogen 0.2 (NORMAL) Ur Leukocyte Esterase NEGATIVE Ur Microscopic Review NOT INDICATED Urine Culture Comments NOT INDICATED Salicylates Urine Opiates Screen NEGATIVE Ur Oxycodone Screen NEGATIVE Urine Methadone Screen NEGATIVE Ur Propoxyphene Screen NEGATIVE Acetaminophen Ur Barbiturates Screen NEGATIVE Ur Tricyclics Screen NEGATIVE Ur Phencyclidine Scrn NEGATIVE Ur Amphetamine Screen NEGATIVE U Methamphetamines Scrn NEGATIVE U Benzodiazepines Scrn NEGATIVE Urine Cocaine Screen NEGATIVE U Cannabinoids Screen NEGATIVE Ethyl Alcohol PD MEDICAL DECISION MAKING - ED course Complexity details: re-evaluated patient (SW talked with patient to offer detox or Respite, but he says he would prefer home with meds. Not suicidal. We talked and I felt comfortable with initiating antidepressant, and felt Buproprion would be good for that as well as curb cravings for alcohol. ), considered differential (he says he has had soberr periods and has had "tough few days" but not overly significant withdrawal. He would like meds to help with it though, a nd with anxiety. He is mostly interested in starting antidepressants, and would like to start soon.), d/w patient, d/w data governance consultant (Social Work) Departure - Departure Disposition: 01 Home, Self Care Clinical Impression: Anxiety Alcohol withdrawal Qualifiers: Complication of substance-induced condition: uncomplicated Qualified Code(s): F10.230 - Alcohol dependence with withdrawal, uncomplicated Depression Qualifiers: Depression Type: unspecified Qualified Code(s): F32.9 - Major depressive disorder, single episode, unspecified Condition: Stable Record reviewed to determine appropriate education?: Yes Instructions: ED Withdrawal Alcohol, ED Depression Follow-Up: Luis Hoyos MD [Primary Care Provider] - Prescriptions: LORazepam [Ativan] 1 mg PO BID PRN #20 tablet PRN Reason: Anxiety buPROPion [Wellbutrin Sr] 150 mg PO BID #40 tablet Ondansetron Odt [Zofran] 4 mg TL Q6H PRN #20 tablet PRN Reason: Nausea / Vomiting Comments: Stay well hydrated. Regular diet. No alcohol. Use the lorazepam twice daily if needed for anxiety or withdrawal symptoms. It could be used at night for sleep as well. 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 You can start Wellbutrin/bupropion antidepressant and this can help with alcohol cessation as well. I would start at 1/2 tablet (75 mg) daily for 2 or 3 days and then twice daily for 3 to 4 days. Then you can increase to the 150 mg twice daily. This is still the beginning dose. Follow-up with your primary care in the next week or 2, call for an appointment. They can increase dosing as needed however typically will start with this starting dose for the first 3-4 weeks before increasing. Follow-up with your counselor or some new counselor with the list provided. Discharge Date/Time: 01/26/21 13:34
[2021-01-26 11:42] LABS: BASOPHILS % (AUTO) 0.2 %; HCT - HEMATOCRIT 43.9 % (42.0-52.0); HGB - HEMOGLOBIN 15.5 g/dL (14.0-18.0); LYMPHOCYTES % (AUTO) 10.7 %; MEAN CORPUSCULAR HEMOGLOBIN 32.9 pg (27.0-31.0); MEAN CORPUSCULAR HGB CONC 35.3 g/dL (32.0-36.0); MEAN CORPUSCULAR VOLUME 93.2 fL (80.0-94.0); MEAN PLATELET VOLUME 8.4 fL (7.4-11.4); MONOCYTES # (AUTO) 0.6 10^3/uL (0.0-1.0); NEUTROPHILS # (AUTO) 7.6 10^3/uL (1.5-6.6); NEUTROPHILS % (AUTO) 82.9 %; PLT - PLATELET COUNT 176 10^3/uL (130-450); RED BLOOD COUNT 4.71 10^6/uL (4.70-6.10); RED CELL DISTRIBUTION WIDTH 11.9 % (12.0-15.0); WHITE BLOOD COUNT 9.2 x10^3/uL (4.8-10.8)
[2021-01-26 12:04] LABS: ACETAMINOPHEN < 10 ug/mL (10-30); ALBUMIN 4.5 g/dL (3.2-5.5); ALBUMIN/GLOBULIN RATIO 1.7 (1.0-2.2); ALKALINE PHOSPHATASE 83 IU/L (42-121); ALT ALANINE AMINOTRANSFERASE 29 IU/L (10-60); AST ASPARTATE AMINOTRANSFERASE 27 IU/L (10-42); BILIRUBIN,TOTAL 1.5 mg/dL (0.2-1.0); BUN - BLOOD UREA NITROGEN 11 mg/dL (6-20); CALCIUM 9.2 mg/dL (8.5-10.3); CARBON DIOXIDE - CO2 33 mmol/L (21-32); CHLORIDE 92 mmol/L (101-111); CREATININE 0.9 mg/dL (0.6-1.2); ETOH - ETHANOL < 5.0 mg/dL; GFR - MDRD 90 (>89); GLUCOSE 174 mg/dL (70-100); LIPASE 23 U/L (22-51); MAGNESIUM 1.8 mg/dL (1.7-2.8); POTASSIUM 3.6 mmol/L (3.5-5.0); SALICYLATE < 6.0 mg/dL; SODIUM 136 mmol/L (135-145); TOTAL PROTEIN 7.2 g/dL (6.7-8.2)
[2021-01-26] MEDS ORDERED: LORazepam 2 MG/ML VIAL IVP STA (12:06)
[2021-01-26] MEDS ORDERED: SODIUM CHLORIDE 0.9% 1,000 ML IV STA (12:06)
[2021-01-26] MEDS ORDERED: ONDANSETRON 4 MG/2 ML VIAL IVP STA (12:06)
[2021-01-26 12:40] LABS: MUDS CUTOFF CONCENTRATIONS CUTOFF CONC BELOW:
[2021-01-26 12:43] LABS: BILIRUBIN,URINE NEGATIVE (NEGATIVE); GLUCOSE, URINE (UA) NEGATIVE (NEGATIVE); KETONES,URINE (UA) TRACE mg/dL (NEGATIVE); LEUKOCYTE ESTERASE, URINE NEGATIVE (NEGATIVE); NITRITE,URINE NEGATIVE (NEGATIVE); OCCULT BLOOD,URINE NEGATIVE (NEGATIVE); PROTEIN,URINE NEGATIVE (NEGATIVE); UROBILINOGEN,URINE 0.2 (NORMAL) E.U./dL (NORMAL)
[2021-01-26 12:54] LABS: CLARITY,URINE CLEAR (CLEAR)
[2021-01-26 12:56] LABS: AMPHETAMINE SCREEN,URINE NEGATIVE (NEGATIVE); BARBITURATE SCREEN,UR NEGATIVE (NEGATIVE); BENZODIAZEPINES SCREEN, URINE NEGATIVE (NEGATIVE); COCAINE SCREEN URINE NEGATIVE (NEGATIVE); METHADONE SCREEN, URINE NEGATIVE (NEGATIVE); METHAMPHETAMINES SCREEN, URINE NEGATIVE (NEGATIVE); OPIATE SCREEN, URINE NEGATIVE (NEGATIVE); OXYCODONE SCREEN, URINE NEGATIVE (NEGATIVE); PROPOXYPHENE SCREEN, URINE NEGATIVE (NEGATIVE); THC CANNABINOID SCREEN, URINE NEGATIVE (NEGATIVE); TRICYCLIC ANTIDEPRESSANT,URINE NEGATIVE (NEGATIVE)
== END 2021-01-26 13:34 | disposition home or self-care (01) ==
LOC: ED 10:29
DX: F10.230 Alcohol dependence with withdrawal, uncomplicated (principal); F41.9 Anxiety disorder, unspecified; F32.9 Major depressive disorder, single episode, unspecified
CPT/HCPCS: 36415; 80053; 80306; 80307; 80320; 80329; 81003; 83690; 83735; 84443; 85025; 96374; 96375; 99283; 99284; J2060; 81001; 87086

== ENCOUNTER 2021-04-24 08:02 | Outpatient (CLI) | payer OTHER ==
--- NOTE | 2021-04-24 09:13 | MRI Report ---
PROCEDURE: Cervical Spine W/O INDICATIONS: Hemachromatosis TECHNIQUE: Noncontrast sagittal T1 spin echo and T2 fast spin echo, sagittal STIR, foraminal oblique sagittal T2 fast spin echo, and axial gradient echo or T2 fast spin echo through the cervical spine. COMPARISON: CT cervical spine 01/25/2021 FINDINGS: Image quality: Excellent. Alignment and Curvature: Normal cervical spine vertebral body height and alignment. Normal configurat ion of the craniocervical junction. Bone Marrow: Normal bone marrow signal intensity. No suspicious focal marrow signal abnormality or josiane ne marrow edema. Spinal Cord: Visualized spinal cord has normal size and signal. No cerebellar tonsillar herniation. Regional Soft Tissues: Prevertebral and paraspinous soft tissues are unremarkable. C2-C3: No spinal canal or neural foraminal stenosis. C3-C4: No spinal canal or neural foraminal stenosis. C4-C5: Uncovertebral spurring contribute to mild neural foraminal narrowing on the right. No neural foraminal narrowing on the left or spinal canal stenosis. C5-C6: Facet and uncovertebral hypertrophy contribute to mild left neural foraminal narrowing. No sp inal canal stenosis or neural foraminal narrowing on the right. C6-C7: No spinal canal or neural foraminal narrowing. C7-T1: No spinal canal or neural foraminal narrowing IMPRESSION: Minimal degenerative changes at C4-C5 and C5-C6. Otherwise normal MRI of the cervical spine. Reviewed by: Bahman Ruiz MD on 04/24/2021 9:12 AM PDT Approved by: Bahman Ruiz MD on 04/24/2021 9:12 AM PDT Station ID: [id number]
== END 2021-04-24 08:03 | disposition home or self-care (01) ==
LOC: DI 08:02
PROVIDERS: ATTEND Physician Assistant
DX: M47.812 Spondylosis without myelopathy or radiculopathy, cervical region (principal); E83.110 Hereditary hemochromatosis

== ENCOUNTER 2021-06-27 08:48 | Emergency (ER) | payer OTHER ==
--- NOTE | 2021-06-27 09:09 | ED Physician Documentation ---
PD HPI HEENT - Stated complaint Stated Complaint: DIZZINESS - History obtained from History obtained from: Patient - History of Present Illness Timing - onset: Today Timing - duration: Weeks (2) Timing - details: Gradual onset, Still present, Waxing and waning Location: Other (has had vertigo for couple of weeks, worse the past few days, associated with nausea and vomiting. States difficulty walking due to balance. having general weakness and has been tired for month or more. history of tinnitus with occipital nerve block [facility] ago. quit alcohol 2 wk ago.) Improves: Other (holding still/lying.) Worsens: Position (vertigo worse with standing/head movement.) Associated symptoms: No: Fever, Congestion Similar symptoms before: No diagnosis (he says he had a stroke 15 years ago with vertigo and difficulty walking for months. No other deficits.) Recently seen: Clinic ([facility] with occipital nerve block for tinnitus. States the vertigo started soon after and persists. associated with nausea and vomiting, difficulty walking, fatigue.) Review of Systems Constitutional: denies: Fever, Chills Eyes: reports: Other (tinnitus for months.). denies: Loss of vision, Decreased vision Nose: denies: Rhinorrhea / runny nose, Congestion Throat: denies: Sore throat Respiratory: denies: Cough GI: reports: Nausea, Vomiting (bilious for couple of weeks, per patientl). denies: Abdominal Pain, Diarrhea Neurologic: reports: Generalized weakness, Headache (occipital). denies: Focal weakness, Numbness, Altered mental status Psychiatric: reports: Depressed, Anxiety. denies: Suicidal Endocrine: denies: Weight loss PD PAST MEDICAL HISTORY - Past Medical History Respiratory: None Neuro: CVA, Other (denies alcohol related seizures nor DTs.) - Past Surgical History Past Surgical History: No HEENT: Tonsil/Adenoidectomy - Present Medications Home Medications: Ambulatory Orders Medication Instructions Recorded Confirmed Omeprazole 1 cap PO DAILY 01/25/21 06/27/21 traMADol [Ultram] 2 tab PO DAILY 01/25/21 06/27/21 buPROPion [Wellbutrin Sr] 150 mg PO BID #40 tablet 01/26/21 06/27/21 Alprazolam [Xanax] 1 tablet PO DAILY 06/27/21 06/27/21 Meclizine HCl [Motion Sickness] 25 mg PO Q8H PRN #40 tablet 06/27/21 Ondansetron Odt [Zofran] 4 mg TL Q6H PRN #20 tablet 06/27/21 Pantoprazole Sodium 20 mg PO DAILY 30 Days #30 tab 06/27/21 dexAMETHasone [Decadron] 4 mg PO DAILY #7 tablet 06/27/21 Sumatriptan [Imitrex] 20 mg NS DAILY PRN #5 bottle 06/28/21 - Allergies Allergies/Adverse Reactions: Allergies Allergy/AdvReac Type Severity Reaction Status Date / Time No Known Drug Allergies Allergy Verified 06/28/21 12:09 - Social History Does the pt smoke?: No Smoking Status: Never smoker Does the pt drink ETOH?: Yes ETOH Use: Other (regular alcohol use up to about 2 weeks ago, when stopped. He states he has had brief sober periods in the past. Seen in ER few months ago and declined Detox at that time, but states did stop for few weeks. ) Does the pt have substance abuse?: No - Immunizations Immunizations are current?: Yes - POLST Patient has POLST: No PD ED PE NORMAL - Vitals Vital signs reviewed: Yes - General General: Alert and oriented X 3, No acute distress (but having some extremity shakiness. No noted incoordination of movment though. ), Well developed/nourished - HEENT HEENT: Atraumatic, PERRL, EOMI (with nystagmus to the right mainly), Ears normal, Moist mucous membranes, Pharynx benign - Neck Neck: Supple, no meningeal sign, No adenopathy, No JVD, No bruit - Cardiac Cardiac: RRR, No murmur - Respiratory Respiratory: Clear bilaterally - Abdomen Abdomen: Normal bowel sounds, Soft, Non tender - Back Back: No spinal TTP - Derm Derm: Normal color, Warm and dry - Extremities Extremities: No tenderness to palpate, Normal ROM s pain, No edema, No calf tenderness / cord - Neuro Neuro: Alert and oriented X 3, family partner 2-12 intact, No motor deficit, No sensory deficit, Normal speech Eye Opening: Spontaneous Motor: Obeys Commands Verbal: Oriented GCS Score: 15 Results - Vitals Vitals: Oxygen O2 Source Room air - Labs Labs: Laboratory Tests 06/27/21 06/27/21 06/27/21 09:35 09:35 09:35 WBC 9.8 RBC 5.19 Hgb 17.4 Hct 47.7 MCV 91.9 MCH 33.5 H MCHC 36.5 H RDW 12.7 Plt Count 146 MPV 8.7 Neut # (Auto) 6.6 Lymph # (Auto) 1.8 Charlton # (Auto) 1.2 H Eos # (Auto) 0.0 Baso # (Auto) 0.1 Absolute Nucleated RBC 0.00 Nucleated RBC % 0.0 Sodium 130 L Potassium 3.4 L Chloride 87 L Carbon Dioxide 25 Anion Gap 18.0 H BUN 18 Creatinine 1.2 Estimated GFR (MDRD) 64 L Glucose 142 H Calcium 9.3 Magnesium 1.7 Ferritin Total Bilirubin 3.6 H AST 53 H ALT 39 Alkaline Phosphatase 81 Total Protein 7.4 Albumin 4.5 Globulin 2.9 Albumin/Globulin Ratio 1.6 Lipase 75 H Vitamin B12 126 L TSH 1.17 Ethyl Alcohol < 5.0 06/27/21 09:35 WBC RBC Hgb Hct MCV MCH MCHC RDW Plt Count MPV Neut # (Auto) Lymph # (Auto) Charlton # (Auto) Eos # (Auto) Baso # (Auto) Absolute Nucleated RBC Nucleated RBC % Sodium Potassium Chloride Carbon Dioxide Anion Gap BUN Creatinine Estimated GFR (MDRD) Glucose Calcium Magnesium Ferritin 1386.0 H Total Bilirubin AST ALT Alkaline Phosphatase Total Protein Albumin Globulin Albumin/Globulin Ratio Lipase Vitamin B12 TSH Ethyl Alcohol - Rads (name of study) head CT Radiology: Prelim report reviewed (no acute process), See rad report brain MRI Radiology: Prelim report reviewed (normal. No acute injury; no chronic injury. No bleed nor tumors. ), See rad report PD MEDICAL DECISION MAKING - ED course Complexity details: reviewed results (MRI does not show acute nor chronic process. He states he had prior CVA but not showing on current MRI. has some anxiety too and consider some element of alcohol withdrawal with shaky/tachy/eleveted BP. ), considered differential (vertigo, with h/o tinnitus, most likely peripheral. consider posterior circulation problem though, given his stated ataxia. Does not clinically have incoordination on extremity movement. Will try to get MRI.), d/w patient Departure - Departure Disposition: 01 Home, Self Care Clinical Impression: Vertigo, Elevated bilirubin Nausea and vomiting Qualifiers: Vomiting type: bilious vomiting Qualified Code(s): R11.14 - Bilious vomiting Gastritis, acute Qualifiers: Gastritis type: unspecified gastritis Gastritis bleeding: without bleeding Qualified Code(s): K29.00 - Acute gastritis without bleeding Clinical Impression: (Ruled Out): Cerebrovascular accident (CVA) Condition: Stable Record reviewed to determine appropriate education?: Yes Instructions: ED PUD Vs Gastritis, ED Vertigo Unspecified Follow-Up: Luis Hoyos MD [Primary Care Provider] - Prescriptions: dexAMETHasone [Decadron] 4 mg PO DAILY #7 tablet Meclizine HCl [Motion Sickness] 25 mg PO Q8H PRN #40 tablet PRN Reason: Vertigo Pantoprazole Sodium 20 mg PO DAILY 30 Days #30 tab Ondansetron Odt [Zofran] 4 mg TL Q6H PRN #20 tablet PRN Reason: Nausea / Vomiting Comments: Your head CT and MRI are good without any signs of acute stroke, bleeding, tumors or swelling. Your vertigo therefore seems to be inner ear related. Consideration could be medication related though you not really take anything that would obviously cause dizziness. We would treat this with meclizine motion sickness medicine every 8 hours if needed for vertigo. It seems to have helped to hear. Presuming some inflammation through the inner ear, I would also suggest Decadron steroid daily for the next week to help with the condition as well. From the vomiting, its likely you have some irritation of the stomach (gastritis or ulcer). Your medication list has omeprazole on it. I might suggest changing to pantoprazole and see if that does okay for you. To it you can add antacid such as Maalox or Mylanta if needed for stomach discomfort. Add ondansetron if needed for nausea. Your liver enzymes are little elevated and likely from the vomiting and being dehydrated. I would suggest following up with your primary care to have that rechecked next week to ensure its improving. Small frequent fluids and bland foods. No alcohol. Avoid irritants such as caffeine and anti-inflammatories as well. Continue your other usual medications. I transmitted your prescriptions to [facility] in [place]. Discharge Date/Time: 06/27/21 14:44
[2021-06-27] MEDS ORDERED: SODIUM CHLORIDE 0.9% 1,000 ML IV STA ×2 (10:03→11:04)
[2021-06-27] MEDS ORDERED: MECLIZINE 12.5 MG TABLET PO STA (10:04)
[2021-06-27] MEDS ORDERED: diazePAM INJ 5 MG/ML SYRINGE IVP STA ×2 (10:04→14:26)
[2021-06-27] MEDS ORDERED: FAMOTIDINE 20 MG/2 ML VIAL IVP STA (10:05)
[2021-06-27 10:10] LABS: BASOPHILS # (AUTO) 0.1 10^3/uL (0.0-0.1); BASOPHILS % (AUTO) 0.6 %; EOSINOPHILS % (AUTO) 0.1 %; HCT - HEMATOCRIT 47.7 % (42.0-52.0); HGB - HEMOGLOBIN 17.4 g/dL (14.0-18.0); LYMPHOCYTES # (AUTO) 1.8 10^3/uL (1.5-3.5); LYMPHOCYTES % (AUTO) 18.3 %; MEAN CORPUSCULAR HEMOGLOBIN 33.5 pg (27.0-31.0); MEAN CORPUSCULAR HGB CONC 36.5 g/dL (32.0-36.0); MEAN CORPUSCULAR VOLUME 91.9 fL (80.0-94.0); MEAN PLATELET VOLUME 8.7 fL (7.4-11.4); MONOCYTES # (AUTO) 1.2 10^3/uL (0.0-1.0); MONOCYTES % (AUTO) 12.6 %; NEUTROPHILS # (AUTO) 6.6 10^3/uL (1.5-6.6); PLT - PLATELET COUNT 146 10^3/uL (130-450); RED BLOOD COUNT 5.19 10^6/uL (4.70-6.10); RED CELL DISTRIBUTION WIDTH 12.7 % (12.0-15.0); WHITE BLOOD COUNT 9.8 x10^3/uL (4.8-10.8)
[2021-06-27 10:21] LABS: ALBUMIN 4.5 g/dL (3.2-5.5); ALBUMIN/GLOBULIN RATIO 1.6 (1.0-2.2); ALKALINE PHOSPHATASE 81 IU/L (42-121); ALT ALANINE AMINOTRANSFERASE 39 IU/L (10-60); AST ASPARTATE AMINOTRANSFERASE 53 IU/L (10-42); BILIRUBIN,TOTAL 3.6 mg/dL (0.2-1.0); BUN - BLOOD UREA NITROGEN 18 mg/dL (6-20); CALCIUM 9.3 mg/dL (8.5-10.3); CARBON DIOXIDE - CO2 25 mmol/L (21-32); CHLORIDE 87 mmol/L (101-111); CREATININE 1.2 mg/dL (0.6-1.2); ETOH - ETHANOL < 5.0 mg/dL; GFR - MDRD 64 (>89); GLUCOSE 142 mg/dL (70-100); LIPASE 75 U/L (22-51); MAGNESIUM 1.7 mg/dL (1.7-2.8); POTASSIUM 3.4 mmol/L (3.5-5.0); SODIUM 130 mmol/L (135-145); TOTAL PROTEIN 7.4 g/dL (6.7-8.2)
[2021-06-27 10:35] LABS: THYROID STIMULATING HORMONE 1.17 uIU/mL (0.34-5.60)
--- NOTE | 2021-06-27 10:44 | CT Report ---
PROCEDURE: HEAD WO INDICATIONS: dizziness, some headache TECHNIQUE: Noncontrast 4.5 mm thick angled axial sections acquired from the foramen magnum to the vertex. For r adiation dose reduction, the following was used: automated exposure control, adjustment of mA and/or kV according to patient size. COMPARISON: CT head 01/25/2021 FINDINGS: Image quality: Excellent. CSF spaces: Basal cisterns are patent. No extra-axial fluid collections. Ventricles are normal in size and shape. Brain: No midline shift. No intracranial masses or hemorrhage. Yuan-white matter interface is norm al. Skull and face: Calvarium and visualized facial bones are intact, without suspicious lesions. Sinuses: Visualized sinuses and mastoids are clear. IMPRESSION: 1. No acute intracranial process. Reviewed by: Emilia Dahl MD on 06/27/2021 10:42 AM PDT Approved by: Emilia Dahl MD on 06/27/2021 10:42 AM PDT Station ID: [id number]
--- NOTE | 2021-06-27 13:21 | MRI Report ---
PROCEDURE: Brain W/O INDICATIONS: vertigo and ataxia 1 week TECHNIQUE: Noncontrast axial T1 spin echo, axial T2 fast spin echo, sagittal and axial FLAIR, coronal T2 fast sp in echo, axial gradient echo, axial diffusion and ADC through the brain. COMPARISON: CT head 06/27/2021 FINDINGS: Image quality: Excellent. CSF Spaces: Basal cisterns are patent. No extra-axial fluid collections. Ventricles are normal in size and shape. Brain: No intracranial masses or hemorrhage. Yuan/white matter interface is normal. Brainstem appe ars normal. Diffusion-weighted images demonstrate no acute ischemic insult. No chronic ischemic ins ults. Normal intravascular flow voids are present. Minimal punctate scattered areas of periventricu lar and subcortical white matter T2/FLAIR hyperintensities are present. Skull and face: Calvarium has normal marrow signal. Orbits appear normal. Sinuses: Sinuses and mastoids are clear. IMPRESSION: 1. No acute intracranial process. 2. Minimal punctate scattered areas of T2 hyperintensity as above. These are overall nonspecific. The se could represent small areas of early chronic microvascular ischemia, migraine sequela, vasculitis or demyelinating disease in appropriate clinical circumstance. Reviewed by: Emilia Dahl MD on 06/27/2021 1:20 PM PDT Approved by: Emilia Dahl MD on 06/27/2021 1:20 PM PDT Station ID: [id number]
[2021-06-27 14:44] VITALS: BP 147/109
== END 2021-06-27 14:44 | disposition home or self-care (01) ==
LOC: ED 08:48
DX: R42 Dizziness and giddiness (principal); K29.00 Acute gastritis without bleeding; E86.0 Dehydration; R79.89 Other specified abnormal findings of blood chemistry; R74.8 Abnormal levels of other serum enzymes; Z86.73 Personal history of transient ischemic attack (TIA), and cerebral infarction without residual deficits
CPT/HCPCS: 36415; 70450; 70551; 80053; 80320; 82607; 82728; 83690; 83735; 84443; 85025; 96361; 96374; 96375; 96376; 99284; A9270

== ENCOUNTER 2021-06-28 11:52 | Emergency (ER) | payer OTHER ==
[2021-06-28] MEDS ORDERED: diphenhydrAMINE INJ 50 MG/ML VIAL IM STA (12:29)
[2021-06-28] MEDS ORDERED: DROPERIDOL 5 MG/2 ML VIAL IM STA (12:29)
[2021-06-28] MEDS ORDERED: KETOROLAC 60 MG/2 ML VIAL IM STA (12:29)
--- NOTE | 2021-06-28 12:38 | ED Physician Documentation ---
History of Present Illness - Stated complaint Stated Complaint: HEAD PX - Chief complaint Chief Complaint: Neuro - History obtained from History obtained from: Patient - History of Present Illness Timing: Chronic Pain level max: 9 Pain level now: 8 - Additonal information Additional information: 51-year-old male presents to the emergency department with chronic migraine headaches. He states the headache has been present for years and never really goes away. Also complains of ringing in his ears. He is followed by ENT for this. He states that he received an occipital nerve block a few weeks ago for the headache but it has not really helped. He states that he has been told to keep his ears clean to help with the tinnitus. He states that he took a dose of tramadol this morning for the headache but the headache is still persistent. This is similar to his normal migraine headache. No fevers. He was seen here yesterday and had a normal head CT and normal brain MRI at that time. He states that he was prescribed medication yesterday but does not know what it was or what it was for so has not taken it. He denies any numbness or tingling. Any focal weakness. States the headache is frontal. No seizures. Gradual onset of headache. Waxes and wanes. Nothing really makes it better or worse. No change with light and sound. Review of Systems Ten Systems: 10 systems reviewed and negative Constitutional: denies: Fever, Chills Ears: denies: Ear pain Nose: denies: Rhinorrhea / runny nose, Congestion Throat: denies: Sore throat Cardiac: denies: Chest pain / pressure, Palpitations Respiratory: denies: Dyspnea, Cough GI: denies: Nausea, Vomiting, Diarrhea Skin: denies: Rash Musculoskeletal: denies: Neck pain, Back pain Neurologic: denies: Headache PD PAST MEDICAL HISTORY - Past Medical History Cardiovascular: None Respiratory: None Neuro: CVA, Other (denies alcohol related seizures nor DTs.) Endocrine/Autoimmune: None GI: None : None HEENT: Chronic hearing loss, Other Musculoskeletal: None Derm: None - Past Surgical History Past Surgical History: No HEENT: Tonsil/Adenoidectomy - Present Medications Home Medications: Ambulatory Orders Medication Instructions Recorded Confirmed Omeprazole 1 cap PO DAILY 01/25/21 06/27/21 traMADol [Ultram] 2 tab PO DAILY 01/25/21 06/27/21 buPROPion [Wellbutrin Sr] 150 mg PO BID #40 tablet 01/26/21 06/27/21 Alprazolam [Xanax] 1 tablet PO DAILY 06/27/21 06/27/21 Meclizine HCl [Motion Sickness] 25 mg PO Q8H PRN #40 tablet 06/27/21 Ondansetron Odt [Zofran] 4 mg TL Q6H PRN #20 tablet 06/27/21 Pantoprazole Sodium 20 mg PO DAILY 30 Days #30 tab 06/27/21 dexAMETHasone [Decadron] 4 mg PO DAILY #7 tablet 06/27/21 Sumatriptan [Imitrex] 20 mg NS DAILY PRN #5 bottle 06/28/21 - Allergies Allergies/Adverse Reactions: Allergies Allergy/AdvReac Type Severity Reaction Status Date / Time No Known Drug Allergies Allergy Verified 06/28/21 12:09 - Social History Does the pt smoke?: No Smoking Status: Never smoker Does the pt drink ETOH?: Yes Does the pt have substance abuse?: No - Immunizations Immunizations are current?: Yes - POLST Patient has POLST: No PD ED PE NORMAL - Vitals Vital signs reviewed: Yes - General General: Alert and oriented X 3, No acute distress, Other (Patient is in a brightly lit room in no apparent distress, has has headphones on and is watching a movie on his iPad.) - HEENT HEENT: Atraumatic, PERRL, EOMI, Ears normal, Moist mucous membranes - Neck Neck: Supple, no meningeal sign, No bony TTP - Cardiac Cardiac: RRR - Respiratory Respiratory: No respiratory distress, Clear bilaterally - Abdomen Abdomen: Soft, Non tender, Non distended - Derm Derm: Warm and dry - Neuro Neuro: Alert and oriented X 3, blueprint cutter 2-12 intact, No motor deficit, No sensory deficit, Normal speech, Other (Normal gait. Normal cerebellar test.) Eye Opening: Spontaneous Motor: Obeys Commands Verbal: Oriented GCS Score: 15 - Psych Psych: Normal mood, Normal affect Results - Vitals Vitals: Vital Signs - 24 hr 06/28/21 06/28/21 12:09 13:32 Temperature 36.6 C Heart Rate 114 H 88 Respiratory 18 16 Rate Blood Pressure 137/68 H 141/93 H O2 Saturation 95 96 Oxygen O2 Source Room air PD MEDICAL DECISION MAKING - ED course Complexity details: reviewed old records, considered differential, d/w patient ED course: 51-year-old male with his typical migraine headache. Feels better after Toradol, droperidol and Benadryl. Had a negative head CT and negative MRI yesterday. Patient requests Imitrex for home. This will be sent. He does not want any further testing at this time. Patient states that he is feeling well and would like to be discharged home. No neurological deficits. No evidence of subarachnoid hemorrhage. Patient counseled regarding signs and symptoms for which I believe and urgent re-evaluation would be necessary. Patient with good understanding of and agreement to plan and is comfortable going home at this time This document was made in part using voice recognition software. While efforts are made to proofread this document, sound alike and grammatical errors may occur. Departure - Departure Disposition: Home, Self Care Clinical Impression: Migraine Qualifiers: Migraine type: unspecified Status migrainosus presence: without status migrainosus Intractability: not intractable Qualified Code(s): G43.909 - Migraine, unspecified, not intractable, without status migrainosus Tinnitus Qualifiers: Laterality: bilateral Qualified Code(s): H93.13 - Tinnitus, bilateral Condition: Good Instructions: Tinnitus, ED Headache Migraine Follow-Up: Luis Hoyos MD [Primary Care Provider] - Within 1 week Prescriptions: Sumatriptan [Imitrex] 20 mg NS DAILY PRN #5 bottle PRN Reason: Migraine Comments: Please follow-up with your doctor for further care. A prescription for Imitrex, intranasal spray was sent to [facility] in [place]. You had a CT scan and MRI yesterday that were both reportedly normal. Do not drive or operate heavy machinery today after the medications were given in the emergency department. Discharge Date/Time: 06/28/21 13:32
[2021-06-28 13:37] VITALS: BP 141/93
== END 2021-06-28 13:32 | disposition home or self-care (01) ==
LOC: ED 11:52
DX: G43.909 Migraine, unspecified, not intractable, without status migrainosus (principal); H93.13 Tinnitus, bilateral
CPT/HCPCS: 96372; 99284; J1200; 80053; 83690; 84484; 85025

== ENCOUNTER 2021-07-20 16:09 | Emergency (ER) | payer OTHER ==
[2021-07-20 16:42] LABS: BASOPHILS # (AUTO) 0.1 10^3/uL (0.0-0.1); BASOPHILS % (AUTO) 1.3 %; EOSINOPHILS # (AUTO) 0.1 10^3/uL (0.0-0.7); EOSINOPHILS % (AUTO) 1.5 %; HCT - HEMATOCRIT 42.4 % (42.0-52.0); HGB - HEMOGLOBIN 15.3 g/dL (14.0-18.0); LYMPHOCYTES # (AUTO) 1.5 10^3/uL (1.5-3.5); LYMPHOCYTES % (AUTO) 31.7 %; MEAN CORPUSCULAR HEMOGLOBIN 34.8 pg (27.0-31.0); MEAN CORPUSCULAR HGB CONC 36.1 g/dL (32.0-36.0); MEAN CORPUSCULAR VOLUME 96.4 fL (80.0-94.0); MEAN PLATELET VOLUME 8.7 fL (7.4-11.4); MONOCYTES # (AUTO) 0.4 10^3/uL (0.0-1.0); MONOCYTES % (AUTO) 7.6 %; NEUTROPHILS # (AUTO) 2.7 10^3/uL (1.5-6.6); NEUTROPHILS % (AUTO) 57.7 %; PLT - PLATELET COUNT 107 10^3/uL (130-450); RED CELL DISTRIBUTION WIDTH 14.5 % (12.0-15.0); WHITE BLOOD COUNT 4.6 x10^3/uL (4.8-10.8)
--- NOTE | 2021-07-20 16:56 | XRAY Report ---
PROCEDURE: Chest 1 View X-Ray INDICATIONS: Chest Pain TECHNIQUE: One view of the chest was acquired. COMPARISON: Report only from prior chest radiograph, 12/16/2018 FINDINGS: Surgical changes and devices: None. Lungs and pleura: No pleural effusions or pneumothorax. Lungs are clear. Mediastinum: Mediastinal contours appear normal. Heart size is normal. Bones and chest wall: No suspicious bony lesions. Overlying soft tissues appear unremarkable. IMPRESSION: Portable chest within normal limits for age. Reviewed by: Oswaldo Cope MD on 07/20/2021 3:55 PM AKDT Approved by: Oswaldo Cope MD on 07/20/2021 3:55 PM AKDT Station ID: [id number]
[2021-07-20 16:58] LABS: ALBUMIN 4.1 g/dL (3.2-5.5); ALBUMIN/GLOBULIN RATIO 1.9 (1.0-2.2); BILIRUBIN,TOTAL 1.2 mg/dL (0.2-1.0); CALCIUM 8.8 mg/dL (8.5-10.3); CREATININE 0.8 mg/dL (0.6-1.2); POTASSIUM 3.1 mmol/L (3.5-5.0); TOTAL PROTEIN 6.3 g/dL (6.7-8.2)
[2021-07-20] MEDS ORDERED: SODIUM CHLORIDE 0.9% 1,000 ML IV STA (17:13)
[2021-07-20] MEDS ORDERED: POTASSIUM CHLORIDE 20 MEQ TABLET PO STA (17:17)
--- NOTE | 2021-07-20 17:48 | ED Physician Documentation ---
History of Present Illness - Stated complaint Stated Complaint: DIZZY, WEAK - Chief complaint Chief Complaint: General - Additonal information Additional information: 51-year-old male is brought to the emergency department for evaluation of worsening tinnitus, increased generalized malaise and weakness as well as intermittent nausea and vomiting. This gentleman is a chronic alcoholic. He drinks typically a pint of liquor a day though over the last few days he is only had 6-8 shots daily. He was seen in this emergency department a little more than a month ago for similar symptoms. He has been referred to a neurologist though that appointment is not until September. Patient is attempting to get the patient into alcohol detox. She has been calling multiple facilities but is told to call back each day as there are no current beds available. Patient does take thiamine and folate daily. He also take Xanax at night to help with sleep. He takes tramadol for chronic headaches and a sore throat. Review of Systems Constitutional: reports: Myalgias, Fatigue. denies: Fever, Chills Eyes: reports: Reviewed and negative Ears: reports: Tinnitus/ringing Nose: reports: Reviewed and negative Throat: reports: Reviewed and negative Cardiac: reports: Reviewed and negative Respiratory: reports: Reviewed and negative GI: reports: Nausea, Vomiting. denies: Abdominal Pain : reports: Reviewed and negative Skin: reports: Reviewed and negative Musculoskeletal: reports: Reviewed and negative Neurologic: reports: Generalized weakness, Headache. denies: Focal weakness, Numbness, Syncope, Seizure, Confused, LOC PD PAST MEDICAL HISTORY - Past Medical History Cardiovascular: None Respiratory: None Neuro: CVA, Other (denies alcohol related seizures nor DTs.) Endocrine/Autoimmune: None GI: None : None HEENT: Chronic hearing loss, Other Musculoskeletal: None Derm: None - Past Surgical History Past Surgical History: No HEENT: Tonsil/Adenoidectomy - Present Medications Home Medications: Ambulatory Orders Medication Instructions Recorded Confirmed Omeprazole 1 cap PO DAILY 01/25/21 06/27/21 traMADol [Ultram] 2 tab PO DAILY 01/25/21 06/27/21 buPROPion [Wellbutrin Sr] 150 mg PO BID #40 tablet 01/26/21 06/27/21 Alprazolam [Xanax] 1 tablet PO DAILY 06/27/21 06/27/21 Meclizine HCl [Motion Sickness] 25 mg PO Q8H PRN #40 tablet 06/27/21 Ondansetron Odt [Zofran] 4 mg TL Q6H PRN #20 tablet 06/27/21 Pantoprazole Sodium 20 mg PO DAILY 30 Days #30 tab 06/27/21 dexAMETHasone [Decadron] 4 mg PO DAILY #7 tablet 06/27/21 Sumatriptan [Imitrex] 20 mg NS DAILY PRN #5 bottle 06/28/21 Sumatriptan [Imitrex] 20 mg NS DAILY #1 ml 06/29/21 Lactulose 15 ml PO Q6H #240 ml 07/20/21 - Allergies Allergies/Adverse Reactions: Allergies Allergy/AdvReac Type Severity Reaction Status Date / Time No Known Drug Allergies Allergy Verified 07/20/21 16:24 - Social History Does the pt smoke?: No Smoking Status: Never smoker Does the pt drink ETOH?: Yes Does the pt have substance abuse?: No - Immunizations Immunizations are current?: Yes - POLST Patient has POLST: No PD ED PE EXPANDED - General General: Alert, No acute distress - Neck Neck: Supple w/out meningeal sx. No: Adenopathy - Cardiac Cardiac: Regular Rate, Radial strong equal, Pedal strong equal, Cap refill < 2 sec. No: Murmur Present - Respiratory Respiratory: Clear to ausultation claudette. No: Distress, Labored - Abdomen Abdomen: Normal Bowel sounds. No: Tender to palpation - Derm Derm: Normal color, Warm and dry. No: Rash - Extremities Extremities: Normal. No: Deformity, Tenderness - Neuro Neuro: Alert and Oriented X 3, CNII-XII intact, Cerebellar nl, Normal gait, Normal finger nose, Normal speech. No: Aphasia, Dysarthria - GCS Eye Opening: Spontaneous Motor: Obeys Commands Verbal: Oriented Total: 15 Results - Vitals Vitals: Vital Signs - 24 hr 07/20/21 16:19 Temperature 36.2 C L Heart Rate 102 H Respiratory 16 Rate Blood Pressure 137/98 H O2 Saturation 97 Oxygen O2 Source Room air - EKG (time done) 1649 Rate: Rate (enter#) (92) Rhythm: NSR Andrews: Normal Intervals: Normal [place] QRS: Normal Ischemia: Non specific changes Compare to prior EKG: Unchanged from prior EKG Computer interpretation: Agree with computer - Labs Labs: Laboratory Tests 07/20/21 07/20/21 07/20/21 16:37 16:37 16:37 WBC 4.6 L RBC 4.40 L Hgb 15.3 Hct 42.4 MCV 96.4 H MCH 34.8 H MCHC 36.1 H RDW 14.5 Plt Count 107 L MPV 8.7 Neut # (Auto) 2.7 Lymph # (Auto) 1.5 [place] # (Auto) 0.4 Eos # (Auto) 0.1 Baso # (Auto) 0.1 Absolute Nucleated RBC 0.00 Nucleated RBC % 0.0 Sodium 138 Potassium 3.1 L Chloride 96 L Carbon Dioxide 30 Anion Gap 12.0 BUN 8 Creatinine 0.8 Estimated GFR (MDRD) 102 Glucose 105 H Calcium 8.8 Total Bilirubin 1.2 H AST 70 H ALT 69 H Alkaline Phosphatase 83 Ammonia Troponin I High Sens 5.6 B-Natriuretic Peptide Total Protein 6.3 L Albumin 4.1 Globulin 2.2 Albumin/Globulin Ratio 1.9 Lipase 51 Ethyl Alcohol 07/20/21 07/20/21 07/20/21 16:37 16:37 17:19 WBC RBC Hgb Hct MCV MCH MCHC RDW Plt Count MPV Neut # (Auto) Lymph # (Auto) Saunders # (Auto) Eos # (Auto) Baso # (Auto) Absolute Nucleated RBC Nucleated RBC % Sodium Potassium Chloride Carbon Dioxide Anion Gap BUN Creatinine Estimated GFR (MDRD) Glucose Calcium Total Bilirubin AST ALT Alkaline Phosphatase Ammonia 55.7 H Troponin I High Sens B-Natriuretic Peptide 24 Total Protein Albumin Globulin Albumin/Globulin Ratio Lipase Ethyl Alcohol 226.0 - Rads (name of study) CXR Radiology: Final report received (Normal for age) Departure - Departure Disposition: 01 Home, Self Care Clinical Impression: Alcoholic encephalopathy, Hypokalemia Alcoholic cirrhosis Qualifiers: Ascites presence: without ascites Qualified Code(s): K70.30 - Alcoholic cirrhosis of liver without ascites Condition: Stable Record reviewed to determine appropriate education?: Yes Instructions: Cirrhosis Liver Dc Follow-Up: Luis Hoyos MD [Primary Care Provider] - Prescriptions: Lactulose 15 ml PO Q6H #240 ml Comments: Kojo was seen in the emergency department today for increased weakness, confusion and lethargy. This is in the setting of severe alcoholism. Today he is quite intoxicated. His blood alcohol is 0.226. His screening labs do show signs of liver dysfunction and cirrhosis. Due to heavy drinking he is developing a condition called hepatic encephalopathy. This is common in chronic alcoholics and causes the weakness and confusion. He is also developing liver cirrhosis. One of the ways that we will treat the encephalopathy is by having him take a medication called lactulose 3-4 times daily. This will make him have loose watery bowel movements but it will bind to the ammonia in his intestines and should reduce some of the confusion. It is important he continue to follow-up with neurology as already referred. In order to survive long-term Kojo will need to stop drinking. Due to the heavy amount that he drinks stopping suddenly would be very dangerous and could cause . It is important that he go through a detox program. I encourage you to continue to follow-up making phone calls to different detox facilities including the new one in [place] that I gave you information for. If at any point you feel that you would benefit from social work evaluation I encourage you to present earlier in the day to the ER perhaps as early as 8 or 9 AM when our social workers are present. If at any point you feel that Kojo is having difficulty breathing, has sudden droopy face, focal weakness in his arms or legs, or develops high fevers, has significant or severe swelling of his abdomen, black or bloody stools then please return immediately to the ER for second evaluation. The prescription for lactulose has been electronically sent to the [facility] in [place]. I do wish you luck in your journey Kojo
[2021-07-20 18:35] VITALS: BP 125/77
== END 2021-07-20 18:45 | disposition home or self-care (01) ==
LOC: ED 16:09
DX: G31.2 Degeneration of nervous system due to alcohol (principal); E87.6 Hypokalemia; K70.30 Alcoholic cirrhosis of liver without ascites
CPT/HCPCS: 36415; 71045; 80053; 80320; 82140; 83690; 83880; 84484; 85025; 93005; 96360; 99284; A9270

== ENCOUNTER 2021-08-05 23:20 | Emergency (ER) | payer OTHER | END 2021-08-05 23:47 | disposition left against medical advice (07) | LOC: ED 23:20 | DX: Z53.21 Procedure and treatment not carried out due to patient leaving prior to being seen by health care provider (principal) ==

== ENCOUNTER 2021-08-08 17:22 | Outpatient (CLI) | payer OTHER | END 2021-08-08 17:23 | disposition critical access hospital (66) | LOC: EMS 17:22 | DX: R42 Dizziness and giddiness (principal); R51.9 Headache, unspecified; R11.2 Nausea with vomiting, unspecified; R10.11 Right upper quadrant pain | CPT/HCPCS: A0425; A0427 ==

== ENCOUNTER 2021-08-08 17:32 | Inpatient (IN) | payer OTHER ==
--- NOTE | 2021-08-08 17:47 | ED Physician Documentation ---
History of Present Illness - Stated complaint Stated Complaint: N/V/ABD PX/ ETOH - Additonal information Additional information: 51-year-old male who is a heavy alcoholic presents to the emergency department for 1 week of uncontrolled nausea vomiting as well as headache. He is attended by his ex- who is his major support system. She reports that he is drinking daily typically anywhere from one half to a full fifth of liquor. He last had a shot of liquor just prior to entering the ambulance. She states that she found him at home on the floor and he began to vomit at which point he began to cough and she is concerned he could have aspirated. He has chronic tinnitus which he has been referred to neurology for. I saw this gentleman in early July for concerns of alcoholism as well as tinnitus. He was started on lactulose for concerns of cirrhosis. His ex- was able to get him to agree to detox and he had been accepted to a tuba in [place] however they would not allow him to use earplugs or earphones which he finds helpful in the time-itis thus he did not go to detox. he has been inconsistent in taking his medications he presents well appearing, he smells heavily of etoh, he is grunt/groaning and has hiccups. He is able to tell me he is in the ED because he is an "alcoholic." Review of Systems Unable to obtain: Intoxicated Constitutional: reports: Fever Eyes: reports: Reviewed and negative Ears: reports: Tinnitus/ringing Cardiac: reports: Reviewed and negative Respiratory: reports: Reviewed and negative GI: reports: Nausea, Vomiting : reports: Reviewed and negative PD PAST MEDICAL HISTORY - Past Medical History Cardiovascular: None Respiratory: None Neuro: CVA, Other (denies alcohol related seizures nor DTs.) Endocrine/Autoimmune: None GI: None : None HEENT: Chronic hearing loss, Other Musculoskeletal: None Derm: None - Past Surgical History Past Surgical History: No HEENT: Tonsil/Adenoidectomy - Present Medications Home Medications: Ambulatory Orders Medication Instructions Recorded Confirmed Omeprazole 1 cap PO DAILY 01/25/21 08/08/21 traMADol [Ultram] 2 tab PO DAILY 01/25/21 08/08/21 buPROPion [Wellbutrin Sr] 150 mg PO BID #40 tablet 01/26/21 08/08/21 Alprazolam [Xanax] 1 tablet PO DAILY 06/27/21 08/08/21 Meclizine HCl [Motion Sickness] 25 mg PO Q8H PRN #40 tablet 06/27/21 08/08/21 Ondansetron Odt [Zofran] 4 mg TL Q6H PRN #20 tablet 06/27/21 08/08/21 Pantoprazole Sodium 20 mg PO DAILY 30 Days #30 tab 06/27/21 08/08/21 dexAMETHasone [Decadron] 4 mg PO DAILY #7 tablet 06/27/21 08/08/21 Sumatriptan [Imitrex] 20 mg NS DAILY PRN #5 bottle 06/28/21 08/08/21 Sumatriptan [Imitrex] 20 mg NS DAILY #1 ml 06/29/21 08/08/21 Lactulose 15 ml PO Q6H #240 ml 07/20/21 08/08/21 - Allergies Allergies/Adverse Reactions: Allergies Allergy/AdvReac Type Severity Reaction Status Date / Time No Known Drug Allergies Allergy Verified 08/08/21 17:55 - Social History Does the pt smoke?: No Smoking Status: Never smoker Does the pt drink ETOH?: Yes Does the pt have substance abuse?: No - Immunizations Immunizations are current?: Yes - POLST Patient has POLST: No PD ED PE EXPANDED - General General: Alert, Other (Appears intoxicated and smells heavily of alcohol otherwise well-developed and nourished) - Cardiac Cardiac: Regular Rate, Radial strong equal, Pedal strong equal, Cap refill < 2 sec. No: Murmur Present - Respiratory Respiratory: Clear to ausultation claudette. No: Distress, Labored - Abdomen Abdomen: Normal Bowel sounds, Tender to palpation (Diffuse abdominal tenderness without guarding or rebound.) - Derm Derm: Normal color, Warm and dry. No: Rash - Extremities Extremities: Normal. No: Deformity, Tenderness - Neuro Neuro: CNII-XII intact, Normal speech (slurred speech) - GCS Eye Opening: Spontaneous Motor: Obeys Commands Verbal: Oriented Total: 15 Results - Vitals Vitals: Vital Signs - 24 hr 08/08/21 08/08/21 08/08/21 17:44 19:05 19:47 Temperature 35.8 C L 36.6 C Heart Rate 108 H 93 100 Respiratory 15 22 19 Rate Blood Pressure 108/60 127/78 133/84 H O2 Saturation 98 88 L 98 Oxygen O2 Source Room air Oxygen Flow Rate 2 - Labs Labs: Laboratory Tests 08/08/21 08/08/21 08/08/21 17:52 17:52 17:52 WBC 13.6 H RBC 5.20 Hgb 18.4 H Hct 48.0 MCV 92.3 MCH 35.4 H MCHC 38.3 H RDW 14.7 Plt Count 315 MPV 8.8 Neut # (Auto) 10.2 H Lymph # (Auto) 2.1 [place] # (Auto) 1.1 H Eos # (Auto) 0.0 Baso # (Auto) 0.0 Absolute Nucleated RBC 0.00 Nucleated RBC % 0.0 PT INR VBG pH VBG pCO2 VBG pO2 VBG HCO3 VBG Total CO2 VBG O2 Saturation VBG Base Excess Sodium 124 L Potassium 2.2 L* Chloride 71 L* Carbon Dioxide 22 Anion Gap 31.0 H BUN 25 H Creatinine 2.2 H Estimated GFR (MDRD) 32 L Glucose 159 H Lactic Acid Calcium 8.1 L Phosphorus Magnesium Total Bilirubin 1.6 H AST 63 H ALT 31 Alkaline Phosphatase 91 Ammonia 20.4 Total Creatine Kinase 201 Total Protein 8.1 Albumin 4.7 Globulin 3.4 Albumin/Globulin Ratio 1.4 Lipase 68 H Ethyl Alcohol 397.4 Serum Ketones 08/08/21 08/08/21 08/08/21 17:52 17:52 17:52 WBC RBC Hgb Hct MCV MCH MCHC RDW Plt Count MPV Neut # (Auto) Lymph # (Auto) [place] # (Auto) Eos # (Auto) Baso # (Auto) Absolute Nucleated RBC Nucleated RBC % PT 11.4 INR 1.0 VBG pH VBG pCO2 VBG pO2 VBG HCO3 VBG Total CO2 VBG O2 Saturation VBG Base Excess Sodium Potassium Chloride Carbon Dioxide Anion Gap BUN Creatinine Estimated GFR (MDRD) Glucose Lactic Acid Calcium Phosphorus 6.2 H Magnesium 2.3 Total Bilirubin AST ALT Alkaline Phosphatase Ammonia Total Creatine Kinase Total Protein Albumin Globulin Albumin/Globulin Ratio Lipase Ethyl Alcohol Serum Ketones NEGATIVE 08/08/21 08/08/21 18:40 18:40 WBC RBC Hgb Hct MCV MCH MCHC RDW Plt Count MPV Neut # (Auto) Lymph # (Auto) [place] # (Auto) Eos # (Auto) Baso # (Auto) Absolute Nucleated RBC Nucleated RBC % PT INR VBG pH 7.493 H VBG pCO2 28.5 L VBG pO2 51.4 H VBG HCO3 21.4 L VBG Total CO2 22.3 L VBG O2 Saturation 85.3 H VBG Base Excess -0.1 Sodium Potassium Chloride Carbon Dioxide Anion Gap BUN Creatinine Estimated GFR (MDRD) Glucose Lactic Acid 5.5 H* Calcium Phosphorus Magnesium Total Bilirubin AST ALT Alkaline Phosphatase Ammonia Total Creatine Kinase Total Protein Albumin Globulin Albumin/Globulin Ratio Lipase Ethyl Alcohol Serum Ketones - Rads (name of study) CT abd Radiology: Final report received (No acute abdominal or pelvic abnormality. Severe hepatic steatosis. Patulous esophagus containing fluid consistent with reflux.) CT head Radiology: Final report received (No acute intracranial abnormality.) cxr Radiology: Final report received (no acute cardiopulmonary abnormality) PD MEDICAL DECISION MAKING - ED course Complexity details: reviewed results, re-evaluated patient, d/w patient, d/w family ED course: 51-year-old male has a history of chronic alcoholism as well as tinnitus presents the emergency department with uncontrolled nausea and vomiting for about 1 week. He consumes about half to 1 full fifth or pint of vodka daily. His significant(who is also his ex-) other had found him at his house slumped on the ground vomiting. She feared that he may have initially aspirated. He did agree to come to the ER but consumed 2 shots of vodka prior to arrival. He presents here with no obvious focal neuro deficits but smells heavily of alcohol and is slurring his words. His initial serum alcohol is nearly 400. His ammonia is 20 today, less than with previous evaluation. No palpable ascites on exam Screening labs today show marked contrasted abnormalities in comparison to labs completed 3 weeks ago. Namely he has developed acute kidney injury, hypokalemia as well as hyponatremia. He is noted to have an elevated serum lactate of 5.5. He is not acidotic and appears well compensated with a CO2 of only 20. He is mildly tachypneic on arrival. he is likely quite dehydrated given the elevated hgb if over 18. His anion gap is > 30, but negative for serum ketones. VBG showed no acidemia. He is well compensated with a CO2 of 28 Initial chest x-ray was without acute findings. His cardiopulmonary auscultation was unremarkable. He did arrive on room air with normal saturations however over small amount of time here in the emergency department he was noted to be mildly hypoxemic and placed on 2 L nasal cannula with resultant rise in his oxygen level. Given the altered mentation likely secondary to the alcohol CT of the head was completed and did not show any acute abnormality. Noncontrast CT of the abdomen was without acute findings as well. Treatment rendered in the ED included volume repletion with a liter of saline as well as 40 mEq of potassium ordered IV. Given the electrolyte derangement, ROBERT and uncontrolled vomiting, pt was presented for admittion to Dr. Humphries. Res PCR is pending. Pt's significant other is at the bedside and aware of the plan. Departure - Departure Disposition: 66 [facility] DC/Xfer Clinical Impression: Alcohol abuse, Hypokalemia, ROBERT (acute kidney injury), Elevated lactic acid level, Hyponatremia Nausea and vomiting Qualifiers: Vomiting type: unspecified Vomiting Intractability: non-intractable Qualified Code(s): R11.2 - Nausea with vomiting, unspecified
[2021-08-08 18:01] LABS: PT - PROTHROMBIN TIME 11.4 secs (9.9-12.6)
[2021-08-08] MEDS ORDERED: ONDANSETRON 4 MG/2 ML VIAL IVP STA ×2 (18:04→20:10)
[2021-08-08] MEDS ORDERED: SODIUM CHLORIDE 0.9% 1,000 ML IV STA (18:04)
[2021-08-08 18:09] LABS: ALBUMIN 4.7 g/dL (3.2-5.5); ALBUMIN/GLOBULIN RATIO 1.4 (1.0-2.2); BILIRUBIN,TOTAL 1.6 mg/dL (0.2-1.0); CALCIUM 8.1 mg/dL (8.5-10.3); CREATININE 2.2 mg/dL (0.6-1.2); ETOH - ETHANOL 397.4 mg/dL; TOTAL PROTEIN 8.1 g/dL (6.7-8.2)
--- NOTE | 2021-08-08 18:10 | XRAY Report ---
PROCEDURE: Chest 1 View X-Ray INDICATIONS: chest pain COMMENTS: Chest pain/ sespected fall PRIORS: 07/20/21 TECHNIQUE: One view of the chest was acquired. COMPARISON: 07/20/2021 FINDINGS: Surgical changes and devices: None. Lungs and pleura: No pleural effusions or pneumothorax. Lungs are clear. Mediastinum: Mediastinal contours appear normal. Heart size is normal. Bones and chest wall: No suspicious bony lesions. Overlying soft tissues appear unremarkable. IMPRESSION: No acute cardiopulmonary abnormality. Reviewed by: Harjit Thomas on 08/08/2021 6:09 PM PST Approved by: Harjit Thomas on 08/08/2021 6:09 PM [facility] Station ID: [id number]
[2021-08-08 18:12] LABS: POTASSIUM 2.2 mmol/L (3.5-5.0)
[2021-08-08] MEDS ORDERED: POTASSIUM CHLOR 10 MEQ/100 ML 10 MEQ/100 ML BAG IV ONE (18:15)
[2021-08-08] MEDS ORDERED: POTASSIUM CHLOR 10 MEQ/100 ML 10 MEQ/100 ML BAG IV STA ×3 (18:16→18:17)
[2021-08-08 18:27] LABS: MAGNESIUM 2.3 mg/dL (1.7-2.8); PHOSPHORUS 6.2 mg/dL (2.5-4.6)
[2021-08-08 18:46] LABS: VBG PH 7.493 (7.31-7.41)
[2021-08-08 18:47] LABS: VBG BASE EXCESS -0.1 mmol/L (-2 - +2); VBG HCO3 21.4 mmol/L (23-28); VBG OXYGEN SATURATION 85.3 % (60-80); VBG PCO2 28.5 mmHg (41-51); VBG PO2 51.4 mmHg (25-47); VBG TOTAL CO2 22.3 mmol/L (24-29)
[2021-08-08 19:05] LABS: BASOPHILS % (AUTO) 0.3 %; HGB - HEMOGLOBIN 18.4 g/dL (14.0-18.0); LYMPHOCYTES # (AUTO) 2.1 10^3/uL (1.5-3.5); LYMPHOCYTES % (AUTO) 15.8 %; MEAN CORPUSCULAR HEMOGLOBIN 35.4 pg (27.0-31.0); MEAN CORPUSCULAR HGB CONC 38.3 g/dL (32.0-36.0); MEAN CORPUSCULAR VOLUME 92.3 fL (80.0-94.0); MEAN PLATELET VOLUME 8.8 fL (7.4-11.4); MONOCYTES # (AUTO) 1.1 10^3/uL (0.0-1.0); NEUTROPHILS # (AUTO) 10.2 10^3/uL (1.5-6.6); NEUTROPHILS % (AUTO) 75.2 %; PLT - PLATELET COUNT 315 10^3/uL (130-450); RED CELL DISTRIBUTION WIDTH 14.7 % (12.0-15.0); WHITE BLOOD COUNT 13.6 x10^3/uL (4.8-10.8)
--- NOTE | 2021-08-08 19:10 | CT Report ---
PROCEDURE: HEAD WO INDICATIONS: ams, ETOH, uncontrolled NV TECHNIQUE: Noncontrast 4.5 mm thick angled axial sections acquired from the foramen magnum to the vertex. For r adiation dose reduction, the following was used: automated exposure control, adjustment of mA and/or kV according to patient size. COMPARISON: 06/27/2021 FINDINGS: Image quality: Excellent. CSF spaces: Basal cisterns are patent. No extra-axial fluid collections. Ventricles are normal in size and shape. Brain: No midline shift. No intracranial masses or hemorrhage. Yuan-white matter interface is norm al. Skull and face: Calvarium and visualized facial bones are intact, without suspicious lesions. Sinuses: Visualized sinuses and mastoids are clear. IMPRESSION: No acute intracranial abnormality. Reviewed by: Harjit Thomas on 08/08/2021 7:09 PM PST Approved by: Harjit Thomas on 08/08/2021 7:09 PM [facility] Station ID: [id number]
--- NOTE | 2021-08-08 19:16 | CT Report ---
PROCEDURE: Abdomen/Pelvis WO INDICATIONS: AMS, ETOH, uncontrolled NV TECHNIQUE: After the administration of contrast, 5 mm thick sections acquired from the diaphragms to the sym physis. 5 mm thick coronal and sagittal reformats were acquired. For radiation dose reduction, the following was used: automated exposure control, adjustment of mA and/or kV according to patient size . COMPARISON: None. FINDINGS: Image quality: Excellent. ABDOMEN: Lung bases: Lung bases are clear. Heart size is normal. Solid organs: Liver: The liver has no mass or intrahepatic biliary ductal dilatation. The portal vein and hepatic veins are patent. Hepatic density is decreased consistent with hepatic steatosis. Biliary: The gallbladder has no gallstones, pericholecystic fluid, gallbladder wall thickening, or landa rrounding inflammatory change. Pancreas: The pancreas has no mass or ductal dilatation. No surrounding inflammation. Spleen: Normal size. No mass. Adrenal glands: No hypertrophy or nodules. Kidneys: No obstructive calculus or hydronephrosis. No solid mass. No cystic mass. Both kidneys have nonobstructive calculi. Bowel: The distal esophagus is patulous and filled with fluid. The small bowel has a normal caliber a nd appearance. The terminal ileum is normal. The large bowel has a normal caliber and appearance. Free air/free fluid: No free air or free fluid. Abdominal wall: No abdominal wall mass or hernia. Retroperitoneum: No retroperitoneal or mesenteric adenopathy by size criteria. Aorta and inferior ve na cava are normal in size. Lymph nodes: No adenopathy. Bones: No suspicious bony lesions. There is rightward curvature of the lumbar spine. PELVIS: Genitourinary: [Bladder wall thickness is normal. ] Miscellaneous: [No inguinal hernias or adenopathy. ] Bones: [No suspicious bony lesions. No vertebral body compression fractures. ] IMPRESSION: 1. No acute abdominal or pelvic abnormality. 2. Severe hepatic steatosis. 3. Patulous esophagus containing fluid consistent with reflux. Reviewed by: Harjit Thomas on 08/08/2021 7:14 PM PST Approved by: Harjit Thomas on 08/08/2021 7:14 PM PST Station ID: [id number]
[2021-08-08] MEDS ORDERED: ACETAMINOPHEN 325 MG TABLET PO PRN (19:51)
[2021-08-08] MEDS ORDERED: LACTATED RINGERS 1,000 ML IV SCH (20:00)
[2021-08-08] MEDS ORDERED: THIAMINE INJ 100 MG in SODIUM CHLORIDE 0.9% 50 ML IV STA (20:05)
[2021-08-08] MEDS ORDERED: ONDANSETRON 4 MG/2 ML VIAL ONE (20:19)
[2021-08-08 21:09] LABS: B. PARAPERTUSSIS- RESP PCR PAN NOT DETECTED; B. PERTUSSIS- RESP PCR PANEL NOT DETECTED; C. PNEUMONIAE- RESP PCR PANEL NOT DETECTED; CORONAVIRUS 229E-RESP PCR NOT DETECTED; CORONAVIRUS HKU1-RESP PCR NOT DETECTED; CORONAVIRUS NL63-RESP PCR NOT DETECTED; CORONAVIRUS OC43-RESP PCR NOT DETECTED; HUMAN METAPNEUMOVIRUS NOT DETECTED; INFLUENZA A- RESP PCR PANEL NOT DETECTED; INFLUENZA B - RESP PCR PANEL NOT DETECTED; M. PNEUMONIAE- RESP PCR PANEL NOT DETECTED; PARAINFLUENZA VIRUS 1 NOT DETECTED; PARAINFLUENZA VIRUS 2 NOT DETECTED; PARAINFLUENZA VIRUS 3 NOT DETECTED; PARAINFLUENZA VIRUS 4 NOT DETECTED; RHINOVIRUS/ENTEROVIRUS NOT DETECTED; RSV- RESP PCR PANEL NOT DETECTED; SARS-CoV-2 -RESP PCR PANEL NOT DETECTED
[2021-08-08] MEDS: ONDANSETRON ODT 4 MG TABLET TL PRN (21:46)
[2021-08-08] MEDS: MORPHINE 2 MG/ML CARPUJECT IVP PRN (21:46)
[2021-08-08] MEDS: LACTATED RINGERS 1,000 ML IV SCH ×2 (21:47→23:58)
[2021-08-08] MEDS: POTASSIUM CHLOR 10 MEQ/100 ML 10 MEQ/100 ML BAG IV SCH ×3 (21:55→23:56)
[2021-08-08] MEDS: HYDROmorphone 0.5 MG/0.5 ML SYRINGE IVP PRN (22:51)
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
[2021-08-09 00:28] LABS: ALBUMIN 3.5 g/dL (3.2-5.5); ALBUMIN/GLOBULIN RATIO 1.3 (1.0-2.2); BILIRUBIN,TOTAL 1.6 mg/dL (0.2-1.0); CALCIUM 6.9 mg/dL (8.5-10.3); CREATININE 1.8 mg/dL (0.6-1.2); POTASSIUM 2.6 mmol/L (3.5-5.0); TOTAL PROTEIN 6.1 g/dL (6.7-8.2)
[2021-08-09] MEDS: SODIUM CHLORIDE FLUSH 0.9% 10 ML SYRINGE IVP SCH ×4 (00:48→23:36)
[2021-08-09] MEDS: HYDROmorphone 0.5 MG/0.5 ML SYRINGE IVP PRN ×4 (00:48→20:04)
[2021-08-09] MEDS: POTASSIUM CHLOR 10 MEQ/100 ML 10 MEQ/100 ML BAG IV SCH ×11 (01:02→21:26)
[2021-08-09] MEDS: PROCHLORPERAZINE 10 MG/2 ML VIAL IVP PRN ×2 (02:18→20:14)
[2021-08-09] MEDS: SODIUM CHLORIDE 0.9% 1,000 ML IV SCH ×4 (02:21→18:01)
[2021-08-09 06:49] LABS: BASOPHILS % (AUTO) 0.3 %; HCT - HEMATOCRIT 34.1 % (42.0-52.0); HGB - HEMOGLOBIN 13.2 g/dL (14.0-18.0); LYMPHOCYTES # (AUTO) 1.1 10^3/uL (1.5-3.5); MEAN CORPUSCULAR HEMOGLOBIN 36.4 pg (27.0-31.0); MEAN CORPUSCULAR VOLUME 93.9 fL (80.0-94.0); MEAN PLATELET VOLUME 9.1 fL (7.4-11.4); MONOCYTES # (AUTO) 1.1 10^3/uL (0.0-1.0); MONOCYTES % (AUTO) 8.2 %; NEUTROPHILS # (AUTO) 11.2 10^3/uL (1.5-6.6); NEUTROPHILS % (AUTO) 82.8 %; PLT - PLATELET COUNT 203 10^3/uL (130-450); RED BLOOD COUNT 3.63 10^6/uL (4.70-6.10); RED CELL DISTRIBUTION WIDTH 14.9 % (12.0-15.0); WHITE BLOOD COUNT 13.5 x10^3/uL (4.8-10.8)
[2021-08-09 06:52] LABS: ALBUMIN 3.4 g/dL (3.2-5.5); ALBUMIN/GLOBULIN RATIO 1.4 (1.0-2.2); BILIRUBIN,TOTAL 2.2 mg/dL (0.2-1.0); CREATININE 1.5 mg/dL (0.6-1.2); ETOH - ETHANOL 62.4 mg/dL; MAGNESIUM 1.6 mg/dL (1.7-2.8); PHOSPHORUS 3.2 mg/dL (2.5-4.6); POTASSIUM 3.2 mmol/L (3.5-5.0); TOTAL PROTEIN 5.9 g/dL (6.7-8.2)
[2021-08-09 07:29] LABS: MEAN CORPUSCULAR HGB CONC 38.7 g/dL (32.0-36.0)
[2021-08-09 07:30] LABS: SLIDE REVIEW? Indicated
--- NOTE | 2021-08-09 07:49 | PROVIDER PROGRESS NOTE ---
Subjective - Prog Note Date Prog Note Date: 08/09/21 - Subjective Subjective: He continues complain of a left-sided headache/tinnitus which is chronic for him. He states he normally drinks alcohol and takes alprazolam and tramadol to help alleviate the pain. There is a 9.5 out of 10. He only find some relief with Dilaudid but it lasts about 30 minutes. He feels less nauseous and only has mild epigastric pain now. Current Medications - Current Medications Current Medications: Active Medications Acetaminophen (Acetaminophen 325 Mg Tablet) 650 mg PO Q4HR PRN PRN Reason: Pain 1 to 4 Hydromorphone HCl (Hydromorphone 0.5 Mg/0.5 Ml Syringe) 0.5 mg IVP Q2H PRN PRN Reason: PAIN Last Admin: 08/09/21 03:17 Dose: 0.5 mg Documented by: Sodium Chloride (Normal Saline 0.9%) 1,000 mls @ 125 mls/hr IV .Q8H [facility] Last Infusion: 08/09/21 07:00 Dose: 125 mls/hr Documented by: Morphine Sulfate (Morphine 2 Mg/Ml Carpuject) 2 mg IVP Q2HR PRN PRN Reason: PAIN Last Admin: 08/08/21 21:46 Dose: 2 mg Documented by: Ondansetron HCl (Ondansetron Odt 4 Mg Tablet) 4 mg TL Q6HR PRN PRN Reason: Nausea / Vomiting Last Admin: 08/08/21 21:46 Dose: 4 mg Documented by: Multivit/Folic Acid/Iron ( Vitamin Tablet) 1 tab PO DAILY PRATEEK Prochlorperazine Edisylate (Prochlorperazine 10 Mg/2 Ml Vial) 10 mg IVP Q6HR PRN PRN Reason: Nausea / Vomiting Last Admin: 08/09/21 02:18 Dose: 10 mg Documented by: Sodium Chloride (Sodium Chloride Flush 0.9% 10 Ml Syringe) 10 ml IVP PRN PRN PRN Reason: NEEDED PER PROVIDER ORDERS Sodium Chloride (Sodium Chloride Flush 0.9% 10 Ml Syringe) 10 ml IVP 0100,0900,1700 [facility] Last Admin: 08/09/21 00:48 Dose: 10 ml Documented by: Thiamine HCl (Thiamine 100 Mg Tablet) 100 mg PO DAILY PRATEEK Omeprazole 1 cap PO DAILY 01/25/21 traMADol [Ultram] 2 tab PO DAILY 01/25/21 Alprazolam [Xanax] 1 tablet PO DAILY 06/27/21 Objective - Vital Signs/Intake & Output Reviewed Vital Signs: Yes Vital Signs: Vital Signs Temp Pulse Resp BP Pulse Ox 08/09/21 06:00 108 H 14 131/85 H 94 08/09/21 05:00 109 H 13 131/80 H 94 08/09/21 04:00 36.7 C 107 H 14 125/72 96 Intake & Output: Intake & Output 08/06/21 08/07/21 08/08/21 08/09/21 23:59 23:59 23:59 23:59 Intake Total 2421.001 3417.917 Output Total 800 1000 Balance 3710.146 6852.917 - Objective General Appearance: positive: No acute distress, Alert Eyes Bilateral: positive: Normal inspection, Conjunctivae nml ENT: positive: Dry mucous membranes. negative: No signs of dehydration Neck: positive: Nml inspection Respiratory: positive: No respiratory distress. negative: Wheezes, Rales Cardiovascular: positive: Tachycardia. negative: Irregularly irregular, Systolic murmur Abdomen: positive: Non-tender, No distention. negative: Tenderness Skin: positive: Warm, Dry Extremities: positive: No pedal edema, Other (He is slightly tremulous at this time.) Neurologic/Psychiatric: positive: Motor nml. negative: Disoriented to person, Disoriented to place, Disoriented to time - Lab Results Fish Bones: 08/09/21 06:27 08/09/21 16:56 Other Labs: Lab Results x24hrs 08/09/21 08/09/21 08/09/21 Range/Units 06:27 06:27 06:27 WBC 13.5 H (4.8-10.8) x10^3/uL RBC 3.63 L (4.70-6.10) 10^6/uL Hgb 13.2 L (14.0-18.0) g/dL Hct 34.1 L (42.0-52.0) % MCV 93.9 (80.0-94.0) fL MCH 36.4 H (27.0-31.0) pg MCHC 38.7 H (32.0-36.0) g/dL RDW 14.9 (12.0-15.0) % Plt Count 203 (130-450) 10^3/uL MPV 9.1 (7.4-11.4) fL Neut # (Auto) 11.2 H (1.5-6.6) 10^3/uL Lymph # (Auto) 1.1 L (1.5-3.5) 10^3/uL Metcalfe # (Auto) 1.1 H (0.0-1.0) 10^3/uL Eos # (Auto) 0.0 (0.0-0.7) 10^3/uL Baso # (Auto) 0.0 (0.0-0.1) 10^3/uL Absolute Nucleated RBC 0.00 x10^3/uL Nucleated RBC % 0.0 /100WBC Manual Slide Review Indicated PT (9.9-12.6) secs INR (0.8-1.2) VBG pH (7.31-7.41) VBG pCO2 (41-51) mmHg VBG pO2 (25-47) mmHg VBG HCO3 (23-28) mmol/L VBG Total CO2 (24-29) mmol/L VBG O2 Saturation (60-80) % VBG Base Excess (-2 - +2) mmol/L Sodium 120 L* (135-145) mmol/L Potassium 3.2 L (3.5-5.0) mmol/L Chloride 80 L* (101-111) mmol/L Carbon Dioxide 18 L (21-32) mmol/L Anion Gap 22.0 H (6-13) BUN 23 H (6-20) mg/dL Creatinine 1.5 H (0.6-1.2) mg/dL Estimated GFR (MDRD) 50 L (>89) Glucose 140 H (70-100) mg/dL Lactic Acid 5.2 H* (0.5-2.2) mmol/L Calcium 7.0 L (8.5-10.3) mg/dL Phosphorus 3.2 (2.5-4.6) mg/dL Magnesium 1.6 L (1.7-2.8) mg/dL Total Bilirubin 2.2 H (0.2-1.0) mg/dL AST 57 H (10-42) IU/L ALT 27 (10-60) IU/L Alkaline Phosphatase 70 (42-121) IU/L Ammonia (7-35) umol/L Total Creatine Kinase (22-269) IU/L Total Protein 5.9 L (6.7-8.2) g/dL Albumin 3.4 (3.2-5.5) g/dL Globulin 2.5 (2.1-4.2) g/dL Albumin/Globulin Ratio 1.4 (1.0-2.2) Lipase (22-51) U/L Nasal Adenovirus (PCR) Nasal B. parapertussis DNA (PCR) Nasal Coronavir 229E PCR Nasal Coronavir HKU1 PCR Nasal Coronavir NL63 PCR Nasal Coronavir OC43 PCR Nasal Enterovir/Rhinovir PCR Nasal Influenza B PCR Nasal Influenza A PCR Nasal Parainfluen 1 PCR Nasal Parainfluen 2 PCR Nasal Parainfluen 3 PCR Nasal Parainfluen 4 PCR Nasal RSV (PCR) Nasal Screen MRSA (PCR) (NEGATIVE) Nasal B.pertussis DNA PCR Nasal C.pneumoniae (PCR) Tarun Human Metapneumo PCR Nasal M.pneumoniae (PCR) Nasal SARS-CoV-2 (PCR) Ethyl Alcohol 62.4 mg/dL Serum Ketones (NEGATIVE) 08/09/21 08/09/21 08/08/21 Range/Units 00:04 00:04 21:45 WBC (4.8-10.8) x10^3/uL RBC (4.70-6.10) 10^6/uL Hgb (14.0-18.0) g/dL Hct (42.0-52.0) % MCV (80.0-94.0) fL MCH (27.0-31.0) pg MCHC (32.0-36.0) g/dL RDW (12.0-15.0) % Plt Count (130-450) 10^3/uL MPV (7.4-11.4) fL Neut # (Auto) (1.5-6.6) 10^3/uL Lymph # (Auto) (1.5-3.5) 10^3/uL Metcalfe # (Auto) (0.0-1.0) 10^3/uL Eos # (Auto) (0.0-0.7) 10^3/uL Baso # (Auto) (0.0-0.1) 10^3/uL Absolute Nucleated RBC x10^3/uL Nucleated RBC % /100WBC Manual Slide Review PT (9.9-12.6) secs INR (0.8-1.2) VBG pH (7.31-7.41) VBG pCO2 (41-51) mmHg VBG pO2 (25-47) mmHg VBG HCO3 (23-28) mmol/L VBG Total CO2 (24-29) mmol/L VBG O2 Saturation (60-80) % VBG Base Excess (-2 - +2) mmol/L Sodium 122 L (135-145) mmol/L Potassium 2.6 L (3.5-5.0) mmol/L Chloride 78 L* (101-111) mmol/L Carbon Dioxide 21 (21-32) mmol/L Anion Gap 23.0 H (6-13) BUN 25 H (6-20) mg/dL Creatinine 1.8 H (0.6-1.2) mg/dL Estimated GFR (MDRD) 40 L (>89) Glucose 130 H (70-100) mg/dL Lactic Acid 4.7 H* (0.5-2.2) mmol/L Calcium 6.9 L (8.5-10.3) mg/dL Phosphorus (2.5-4.6) mg/dL Magnesium (1.7-2.8) mg/dL Total Bilirubin 1.6 H (0.2-1.0) mg/dL AST 54 H (10-42) IU/L ALT 26 (10-60) IU/L Alkaline Phosphatase 75 (42-121) IU/L Ammonia (7-35) umol/L Total Creatine Kinase (22-269) IU/L Total Protein 6.1 L (6.7-8.2) g/dL Albumin 3.5 (3.2-5.5) g/dL Globulin 2.6 (2.1-4.2) g/dL Albumin/Globulin Ratio 1.3 (1.0-2.2) Lipase (22-51) U/L Nasal Adenovirus (PCR) Nasal B. parapertussis DNA (PCR) Nasal Coronavir 229E PCR Nasal Coronavir HKU1 PCR Nasal Coronavir NL63 PCR Nasal Coronavir OC43 PCR Nasal Enterovir/Rhinovir PCR Nasal Influenza B PCR Nasal Influenza A PCR Nasal Parainfluen 1 PCR Nasal Parainfluen 2 PCR Nasal Parainfluen 3 PCR Nasal Parainfluen 4 PCR Nasal RSV (PCR) Nasal Screen MRSA (PCR) NEGATIVE (NEGATIVE) Nasal B.pertussis DNA PCR Nasal C.pneumoniae (PCR) Tarun Human Metapneumo PCR Nasal M.pneumoniae (PCR) Nasal SARS-CoV-2 (PCR) Ethyl Alcohol mg/dL Serum Ketones (NEGATIVE) 08/08/21 08/08/21 08/08/21 Range/Units 20:00 18:40 18:40 WBC (4.8-10.8) x10^3/uL RBC (4.70-6.10) 10^6/uL Hgb (14.0-18.0) g/dL Hct (42.0-52.0) % MCV (80.0-94.0) fL MCH (27.0-31.0) pg MCHC (32.0-36.0) g/dL RDW (12.0-15.0) % Plt Count (130-450) 10^3/uL MPV (7.4-11.4) fL Neut # (Auto) (1.5-6.6) 10^3/uL Lymph # (Auto) (1.5-3.5) 10^3/uL Metcalfe # (Auto) (0.0-1.0) 10^3/uL Eos # (Auto) (0.0-0.7) 10^3/uL Baso # (Auto) (0.0-0.1) 10^3/uL Absolute Nucleated RBC x10^3/uL Nucleated RBC % /100WBC Manual Slide Review PT (9.9-12.6) secs INR (0.8-1.2) VBG pH 7.493 H (7.31-7.41) VBG pCO2 28.5 L (41-51) mmHg VBG pO2 51.4 H (25-47) mmHg VBG HCO3 21.4 L (23-28) mmol/L VBG Total CO2 22.3 L (24-29) mmol/L VBG O2 Saturation 85.3 H (60-80) % VBG Base Excess -0.1 (-2 - +2) mmol/L Sodium (135-145) mmol/L Potassium (3.5-5.0) mmol/L Chloride (101-111) mmol/L Carbon Dioxide (21-32) mmol/L Anion Gap (6-13) BUN (6-20) mg/dL Creatinine (0.6-1.2) mg/dL Estimated GFR (MDRD) (>89) Glucose (70-100) mg/dL Lactic Acid 5.5 H* (0.5-2.2) mmol/L Calcium (8.5-10.3) mg/dL Phosphorus (2.5-4.6) mg/dL Magnesium (1.7-2.8) mg/dL Total Bilirubin (0.2-1.0) mg/dL AST (10-42) IU/L ALT (10-60) IU/L Alkaline Phosphatase (42-121) IU/L Ammonia (7-35) umol/L Total Creatine Kinase (22-269) IU/L Total Protein (6.7-8.2) g/dL Albumin (3.2-5.5) g/dL Globulin (2.1-4.2) g/dL Albumin/Globulin Ratio (1.0-2.2) Lipase (22-51) U/L Nasal Adenovirus (PCR) NOT DETECTED Nasal B. parapertussis DNA (PCR) NOT DETECTED Nasal Coronavir 229E PCR NOT DETECTED Nasal Coronavir HKU1 PCR NOT DETECTED Nasal Coronavir NL63 PCR NOT DETECTED Nasal Coronavir OC43 PCR NOT DETECTED Nasal Enterovir/Rhinovir PCR NOT DETECTED Nasal Influenza B PCR NOT DETECTED Nasal Influenza A PCR NOT DETECTED Nasal Parainfluen 1 PCR NOT DETECTED Nasal Parainfluen 2 PCR NOT DETECTED Nasal Parainfluen 3 PCR NOT DETECTED Nasal Parainfluen 4 PCR NOT DETECTED Nasal RSV (PCR) NOT DETECTED Nasal Screen MRSA (PCR) (NEGATIVE) Nasal B.pertussis DNA PCR NOT DETECTED Nasal C.pneumoniae (PCR) NOT DETECTED Tarun Human Metapneumo PCR NOT DETECTED Nasal M.pneumoniae (PCR) NOT DETECTED Nasal SARS-CoV-2 (PCR) NOT DETECTED Ethyl Alcohol mg/dL Serum Ketones (NEGATIVE) 08/08/21 08/08/21 08/08/21 Range/Units 17:52 17:52 17:52 WBC (4.8-10.8) x10^3/uL RBC (4.70-6.10) 10^6/uL Hgb (14.0-18.0) g/dL Hct (42.0-52.0) % MCV (80.0-94.0) fL MCH (27.0-31.0) pg MCHC (32.0-36.0) g/dL RDW (12.0-15.0) % Plt Count (130-450) 10^3/uL MPV (7.4-11.4) fL Neut # (Auto) (1.5-6.6) 10^3/uL Lymph # (Auto) (1.5-3.5) 10^3/uL Metcalfe # (Auto) (0.0-1.0) 10^3/uL Eos # (Auto) (0.0-0.7) 10^3/uL Baso # (Auto) (0.0-0.1) 10^3/uL Absolute Nucleated RBC x10^3/uL Nucleated RBC % /100WBC Manual Slide Review PT 11.4 (9.9-12.6) secs INR 1.0 (0.8-1.2) VBG pH (7.31-7.41) VBG pCO2 (41-51) mmHg VBG pO2 (25-47) mmHg VBG HCO3 (23-28) mmol/L VBG Total CO2 (24-29) mmol/L VBG O2 Saturation (60-80) % VBG Base Excess (-2 - +2) mmol/L Sodium (135-145) mmol/L Potassium (3.5-5.0) mmol/L Chloride (101-111) mmol/L Carbon Dioxide (21-32) mmol/L Anion Gap (6-13) BUN (6-20) mg/dL Creatinine (0.6-1.2) mg/dL Estimated GFR (MDRD) (>89) Glucose (70-100) mg/dL Lactic Acid (0.5-2.2) mmol/L Calcium (8.5-10.3) mg/dL Phosphorus 6.2 H (2.5-4.6) mg/dL Magnesium 2.3 (1.7-2.8) mg/dL Total Bilirubin (0.2-1.0) mg/dL AST (10-42) IU/L ALT (10-60) IU/L Alkaline Phosphatase (42-121) IU/L Ammonia (7-35) umol/L Total Creatine Kinase (22-269) IU/L Total Protein (6.7-8.2) g/dL Albumin (3.2-5.5) g/dL Globulin (2.1-4.2) g/dL Albumin/Globulin Ratio (1.0-2.2) Lipase (22-51) U/L Nasal Adenovirus (PCR) Nasal B. parapertussis DNA (PCR) Nasal Coronavir 229E PCR Nasal Coronavir HKU1 PCR Nasal Coronavir NL63 PCR Nasal Coronavir OC43 PCR Nasal Enterovir/Rhinovir PCR Nasal Influenza B PCR Nasal Influenza A PCR Nasal Parainfluen 1 PCR Nasal Parainfluen 2 PCR Nasal Parainfluen 3 PCR Nasal Parainfluen 4 PCR Nasal RSV (PCR) Nasal Screen MRSA (PCR) (NEGATIVE) Nasal B.pertussis DNA PCR Nasal C.pneumoniae (PCR) Tarun Human Metapneumo PCR Nasal M.pneumoniae (PCR) Nasal SARS-CoV-2 (PCR) Ethyl Alcohol mg/dL Serum Ketones NEGATIVE (NEGATIVE) 08/08/21 08/08/21 08/08/21 Range/Units 17:52 17:52 17:52 WBC 13.6 H (4.8-10.8) x10^3/uL RBC 5.20 (4.70-6.10) 10^6/uL Hgb 18.4 H (14.0-18.0) g/dL Hct 48.0 (42.0-52.0) % MCV 92.3 (80.0-94.0) fL MCH 35.4 H (27.0-31.0) pg MCHC 38.3 H (32.0-36.0) g/dL RDW 14.7 (12.0-15.0) % Plt Count 315 (130-450) 10^3/uL MPV 8.8 (7.4-11.4) fL Neut # (Auto) 10.2 H (1.5-6.6) 10^3/uL Lymph # (Auto) 2.1 (1.5-3.5) 10^3/uL Metcalfe # (Auto) 1.1 H (0.0-1.0) 10^3/uL Eos # (Auto) 0.0 (0.0-0.7) 10^3/uL Baso # (Auto) 0.0 (0.0-0.1) 10^3/uL Absolute Nucleated RBC 0.00 x10^3/uL Nucleated RBC % 0.0 /100WBC Manual Slide Review PT (9.9-12.6) secs INR (0.8-1.2) VBG pH (7.31-7.41) VBG pCO2 (41-51) mmHg VBG pO2 (25-47) mmHg VBG HCO3 (23-28) mmol/L VBG Total CO2 (24-29) mmol/L VBG O2 Saturation (60-80) % VBG Base Excess (-2 - +2) mmol/L Sodium 124 L (135-145) mmol/L Potassium 2.2 L* (3.5-5.0) mmol/L Chloride 71 L* (101-111) mmol/L Carbon Dioxide 22 (21-32) mmol/L Anion Gap 31.0 H (6-13) BUN 25 H (6-20) mg/dL Creatinine 2.2 H (0.6-1.2) mg/dL Estimated GFR (MDRD) 32 L (>89) Glucose 159 H (70-100) mg/dL Lactic Acid (0.5-2.2) mmol/L Calcium 8.1 L (8.5-10.3) mg/dL Phosphorus (2.5-4.6) mg/dL Magnesium (1.7-2.8) mg/dL Total Bilirubin 1.6 H (0.2-1.0) mg/dL AST 63 H (10-42) IU/L ALT 31 (10-60) IU/L Alkaline Phosphatase 91 (42-121) IU/L Ammonia 20.4 (7-35) umol/L Total Creatine Kinase 201 (22-269) IU/L Total Protein 8.1 (6.7-8.2) g/dL Albumin 4.7 (3.2-5.5) g/dL Globulin 3.4 (2.1-4.2) g/dL Albumin/Globulin Ratio 1.4 (1.0-2.2) Lipase 68 H (22-51) U/L Nasal Adenovirus (PCR) Nasal B. parapertussis DNA (PCR) Nasal Coronavir 229E PCR Nasal Coronavir HKU1 PCR Nasal Coronavir NL63 PCR Nasal Coronavir OC43 PCR Nasal Enterovir/Rhinovir PCR Nasal Influenza B PCR Nasal Influenza A PCR Nasal Parainfluen 1 PCR Nasal Parainfluen 2 PCR Nasal Parainfluen 3 PCR Nasal Parainfluen 4 PCR Nasal RSV (PCR) Nasal Screen MRSA (PCR) (NEGATIVE) Nasal B.pertussis DNA PCR Nasal C.pneumoniae (PCR) Tarun Human Metapneumo PCR Nasal M.pneumoniae (PCR) Nasal SARS-CoV-2 (PCR) Ethyl Alcohol 397.4 mg/dL Serum Ketones (NEGATIVE) Assessment/Plan - Problem List (1) Hyponatremia Impression: This is likely hypovolemic hyponatremia. His sodium is 124 on admission and has decreased to 120. This is likely due to his nausea and vomiting. We will keep him on normal saline and check labs every 4 hours. I have ordered for urine sodium and a urinalysis. Unfortunately urine osmolality is a send out lab will not be available for a few days. He appears hypovolemic so I would not suspect this is SIADH. (2) Nausea and vomiting Impression: This is likely secondary to alcoholic gastritis. Lipase is normal and CT showed no evidence of pancreatitis. This is causing his metabolic alkalosis and likely contributing to his hyponatremia as well. We will place him on Protonix 40 mg IV. Hydrated with normal saline. Zofran as needed for nausea. Qualifiers: Vomiting type: unspecified Vomiting Intractability: non-intractable Quali fied Code(s): R11.2 - Nausea with vomiting, unspecified (3) Mixed acid base balance disorder Impression: He appears to have a metabolic acidosis as well as he metabolic alkalosis. Lactic acid is also elevated. His alkalosis likely due to his nausea and vomiting and his acidosis is due to alcoholic ketoacidosis. We will continue to hydrate him with normal saline and check labs every 4-6 hours. (4) Alcohol abuse Impression: He is a history of alcohol abuse which subsequently has now caused alcoholic liver cirrhosis. He is most definitely at risk for alcohol withdrawal. We will place him on thiamine and folate. CIWA protocol. He will be started on Librium. Social work has been consulted to help assist with potential disposition for the patient. (5) ROBERT (acute kidney injury) Impression: This is likely prerenal in injury secondary to dehydration and volume depletion. Creatinine is improved today to 1.5 from 2.2. His baseline is approximately 1.0. We will continue with IV hydration. Avoid nephrotoxins. Monitor urine output. (6) Alcoholic cirrhosis Impression: He is alcoholic cirrhosis there is evidence by his mildly elevated LFTs and previously elevated ammonia. We will continue his lactulose when she taking p.o. consistently. Qualifiers: Ascites presence: without ascites Qualified Code(s): K70.30 - Alcoholic cirrhosis of liver without ascites (7) Hypokalemia Impression: This is likely secondary to GI losses. His potassium is improved but remains decreased. We will continue with potassium supplementation. (8) Suicidal ideations Impression: He reportedly had several ideations early on but he now adamantly denies this. We will have DCR evaluate him once medically cleared. (9) Tinnitus Impression: This unfortunately has been a chronic problem for him and appears to have led to his alcohol abuse. We will use Librium for his alcohol withdrawal. This also helps with his tinnitus. Qualifiers: Laterality: bilateral Qualified Code(s): H93.13 - Tinnitus, bilateral
[2021-08-09] MEDS ORDERED: MAGNESIUM SULFATE 2 GRAM 2 GM/50 ML BAG IV ONE (08:11)
[2021-08-09 08:12] LABS: MUDS CUTOFF CONCENTRATIONS CUTOFF CONC BELOW:
[2021-08-09 08:19] LABS: BILIRUBIN,URINE NEGATIVE (NEGATIVE); GLUCOSE, URINE (UA) NEGATIVE (NEGATIVE); KETONES,URINE (UA) 15 mg/dL (NEGATIVE); LEUKOCYTE ESTERASE, URINE NEGATIVE (NEGATIVE); NITRITE,URINE NEGATIVE (NEGATIVE); OCCULT BLOOD,URINE MODERATE (NEGATIVE); PROTEIN,URINE 30 mg/dL (NEGATIVE); UROBILINOGEN,URINE 0.2 (NORMAL) E.U./dL (NORMAL)
[2021-08-09 08:28] LABS: BARBITURATE SCREEN,UR NEGATIVE (NEGATIVE); METHADONE SCREEN, URINE NEGATIVE (NEGATIVE); OXYCODONE SCREEN, URINE NEGATIVE (NEGATIVE); PROPOXYPHENE SCREEN, URINE NEGATIVE (NEGATIVE)
[2021-08-09 08:29] LABS: AMPHETAMINE SCREEN,URINE NEGATIVE (NEGATIVE); BENZODIAZEPINES SCREEN, URINE NEGATIVE (NEGATIVE); COCAINE SCREEN URINE NEGATIVE (NEGATIVE); METHAMPHETAMINES SCREEN, URINE NEGATIVE (NEGATIVE); OPIATE SCREEN, URINE POSITIVE (NEGATIVE); THC CANNABINOID SCREEN, URINE NEGATIVE (NEGATIVE); TRICYCLIC ANTIDEPRESSANT,URINE NEGATIVE (NEGATIVE)
[2021-08-09 08:32] LABS: BACTERIA,URINE Rare /HPF (None Seen); CLARITY,URINE HAZY (CLEAR); MUCUS,URINE Few Strands; SQUAMOUS EPITHELIAL CELL,UR RARE Squamous (<= Few)
[2021-08-09] MEDS ORDERED: CALCIUM GLUCONATE 2,000 MG in SODIUM CHLORIDE 0.9% 100ML 100 ML IV ONE ×2 (09:00→22:12)
[2021-08-09 09:43] LABS: CALCIUM 7.1 mg/dL (8.5-10.3); CREATININE 1.4 mg/dL (0.6-1.2); MAGNESIUM 1.6 mg/dL (1.7-2.8); POTASSIUM 3.6 mmol/L (3.5-5.0)
[2021-08-09] MEDS: PANTOPRAZOLE 40 MG VIAL IVP SCH (09:56)
[2021-08-09] MEDS: PRENATAL VITAMIN TABLET PO SCH (10:11)
[2021-08-09] MEDS: THIAMINE 100 MG TABLET PO SCH (10:11)
--- NOTE | 2021-08-09 10:36 | PHARMACY PROGRESS NOTE ---
- Best Possible Medication History Admit Date and Time: 08/08/211950 Processed by: Nursing Medication History completed: Yes Secondary Source(s): Pharmacy records, Insurance records As the person ultimately responsible for medication therapy, providers are able to order a medication from an existing home medication list in [facility] via the "Reconcile Routine" prior to Confirmation of that medication by [employer] support. Such practice is discouraged except when the physician, in their clinical judgment, deems that a medical need exists for a medication without regard to previous use.
[2021-08-09] MEDS: ONDANSETRON ODT 4 MG TABLET TL PRN ×2 (11:23→23:08)
[2021-08-09] MEDS: SODIUM CHLORIDE FLUSH 0.9% 10 ML SYRINGE IVP PRN (11:24)
[2021-08-09] MEDS: chlordiazePOXIDE 25 MG CAPSULE PO SCH ×4 (11:26→23:03)
[2021-08-09] MEDS: MORPHINE 2 MG/ML CARPUJECT IVP PRN ×2 (15:30→21:23)
[2021-08-09 16:47] LABS: CALCIUM 7.3 mg/dL (8.5-10.3); CREATININE 1.3 mg/dL (0.6-1.2); MAGNESIUM 2.1 mg/dL (1.7-2.8); POTASSIUM 3.3 mmol/L (3.5-5.0)
[2021-08-09] MEDS ORDERED: FUROSEMIDE 20 MG TABLET PO STA (17:04)
[2021-08-09 17:25] LABS: CALCIUM 7.4 mg/dL (8.5-10.3); CREATININE 1.1 mg/dL (0.6-1.2); MAGNESIUM 2.1 mg/dL (1.7-2.8); POTASSIUM 3.3 mmol/L (3.5-5.0)
[2021-08-09] MEDS: oxyCODONE 5 MG TABLET PO PRN ×2 (17:58→21:22)
[2021-08-09 19:04] LABS: CALCIUM, IONIZED 0.96 mmol/L (1.15-1.33); VBG PH 7.506 (7.31-7.41)
[2021-08-09] MEDS: MAGNESIUM OXIDE 400 MG TABLET PO SCH ×2 (19:26→23:14)
[2021-08-09 21:44] LABS: CALCIUM 7.5 mg/dL (8.5-10.3); MAGNESIUM 2.1 mg/dL (1.7-2.8)
[2021-08-10] MEDS: oxyCODONE 5 MG TABLET PO PRN (01:14)
[2021-08-10] MEDS: SODIUM CHLORIDE FLUSH 0.9% 10 ML SYRINGE IVP PRN ×2 (03:37→05:54)
[2021-08-10] MEDS: HYDROmorphone 0.5 MG/0.5 ML SYRINGE IVP PRN (03:37)
[2021-08-10 05:17] LABS: CALCIUM, IONIZED 1.05 mmol/L (1.15-1.33); VBG PH 7.477 (7.31-7.41)
[2021-08-10 05:18] LABS: BASOPHILS % (AUTO) 0.8 %; EOSINOPHILS % (AUTO) 0.2 %; HCT - HEMATOCRIT 31.8 % (42.0-52.0); HGB - HEMOGLOBIN 11.6 g/dL (14.0-18.0); LYMPHOCYTES # (AUTO) 0.8 10^3/uL (1.5-3.5); LYMPHOCYTES % (AUTO) 15.2 %; MEAN CORPUSCULAR HEMOGLOBIN 35.6 pg (27.0-31.0); MEAN CORPUSCULAR HGB CONC 36.5 g/dL (32.0-36.0); MEAN CORPUSCULAR VOLUME 97.5 fL (80.0-94.0); MONOCYTES # (AUTO) 0.5 10^3/uL (0.0-1.0); MONOCYTES % (AUTO) 9.8 %; NEUTROPHILS # (AUTO) 3.8 10^3/uL (1.5-6.6); PLT - PLATELET COUNT 136 10^3/uL (130-450); RED BLOOD COUNT 3.26 10^6/uL (4.70-6.10); RED CELL DISTRIBUTION WIDTH 14.9 % (12.0-15.0); WHITE BLOOD COUNT 5.2 x10^3/uL (4.8-10.8)
[2021-08-10 05:35] LABS: PHOSPHORUS 1.4 mg/dL (2.5-4.6); POTASSIUM 2.8 mmol/L (3.5-5.0)
[2021-08-10] MEDS ORDERED: POTASSIUM PHOSPHATE 21 MMOL in SODIUM CHLORIDE 0.9% 250 ML IV ONE (05:45)
[2021-08-10] MEDS: SODIUM CHLORIDE 0.9% 1,000 ML IV SCH ×2 (05:48→17:43)
[2021-08-10] MEDS: chlordiazePOXIDE 25 MG CAPSULE PO SCH ×4 (05:53→23:10)
[2021-08-10] MEDS: PROCHLORPERAZINE 10 MG/2 ML VIAL IVP PRN (05:53)
[2021-08-10] MEDS: MORPHINE 2 MG/ML CARPUJECT IVP PRN ×2 (05:54→23:11)
[2021-08-10] MEDS: CALCIUM CARBONATE CHEW 500 MG TABLET PO SCH ×2 (06:00→10:11)
[2021-08-10] MEDS: POTASSIUM CHLOR 10 MEQ/100 ML 10 MEQ/100 ML BAG IV SCH ×6 (06:02→14:35)
[2021-08-10] MEDS: PANTOPRAZOLE 40 MG VIAL IVP SCH (06:03)
--- NOTE | 2021-08-10 07:52 | PROVIDER PROGRESS NOTE ---
Subjective - Prog Note Date Prog Note Date: 08/10/21 - Subjective Subjective: He reports feeling well. Denies any tremor. He has been eating well denies any abdominal pain, nausea, vomiting. Continues to deny any suicidal ideations. Current Medications - Current Medications Current Medications: Active Medications Acetaminophen (Acetaminophen 325 Mg Tablet) 650 mg PO Q4HR PRN PRN Reason: Pain 1 to 4 Chlordiazepoxide HCl (Chlordiazepoxide 25 Mg Capsule) 25 mg PO Q6HR [facility] Last Admin: 08/10/21 05:53 Dose: 25 mg Documented by: Hydromorphone HCl (Hydromorphone 0.5 Mg/0.5 Ml Syringe) 0.5 mg IVP Q2H PRN PRN Reason: PAIN Last Admin: 08/10/21 03:37 Dose: 0.5 mg Documented by: Sodium Chloride (Normal Saline 0.9%) 1,000 mls @ 83.333 mls/hr IV .Q12H [facility] Last Admin: 08/10/21 05:48 Dose: 83.333 mls/hr Documented by: Potassium Chloride (Potassium Chloride) 10 meq in 100 mls @ 100 mls/hr IV Q1H [facility]; Protocol Stop: 08/10/21 11:59 Last Admin: 08/10/21 09:57 Dose: 100 mls/hr Documented by: Morphine Sulfate (Morphine 2 Mg/Ml Carpuject) 2 mg IVP Q2HR PRN PRN Reason: PAIN Last Admin: 08/10/21 05:54 Dose: 2 mg Documented by: Ondansetron HCl (Ondansetron Odt 4 Mg Tablet) 4 mg TL Q6HR PRN PRN Reason: Nausea / Vomiting Last Admin: 08/09/21 23:08 Dose: 4 mg Documented by: Oxycodone HCl (Oxycodone 5 Mg Tablet) 5 mg PO Q4HR PRN PRN Reason: PAIN Last Admin: 08/10/21 01:14 Dose: 5 mg Documented by: Pantoprazole Sodium (Pantoprazole 40 Mg Vial) 40 mg IVP QDAC [facility] Last Admin: 08/10/21 06:03 Dose: 40 mg Documented by: Multivit/Folic Acid/Iron ( Vitamin Tablet) 1 tab PO DAILY [facility] Last Admin: 08/10/21 10:10 Dose: 1 tab Documented by: Prochlorperazine Edisylate (Prochlorperazine 10 Mg/2 Ml Vial) 10 mg IVP Q6HR PRN PRN Reason: Nausea / Vomiting Last Admin: 08/10/21 05:53 Dose: 10 mg Documented by: Sodium Chloride (Sodium Chloride Flush 0.9% 10 Ml Syringe) 10 ml IVP PRN PRN PRN Reason: NEEDED PER PROVIDER ORDERS Last Admin: 08/10/21 05:54 Dose: 10 ml Documented by: Sodium Chloride (Sodium Chloride Flush 0.9% 10 Ml Syringe) 10 ml IVP 0100,0900,1700 [facility] Last Admin: 08/10/21 10:12 Dose: 10 ml Documented by: Thiamine HCl (Thiamine 100 Mg Tablet) 100 mg PO DAILY [facility] Last Admin: 08/10/21 10:10 Dose: 100 mg Documented by: Omeprazole 1 cap PO DAILY 01/25/21 traMADol [Ultram] 2 tab PO DAILY 01/25/21 Alprazolam [Xanax] 1 tablet PO DAILY 06/27/21 Objective - Vital Signs/Intake & Output Reviewed Vital Signs: Yes Vital Signs: Vital Signs Temp Pulse Resp BP Pulse Ox 08/10/21 07:00 93 10 L 128/80 92 08/10/21 06:00 97 12 130/90 H 93 08/10/21 05:00 96 10 L 138/93 H 92 08/10/21 04:00 36.5 C 97 9 L 132/84 H 92 Intake & Output: Intake & Output 08/07/21 08/08/21 08/09/21 08/10/21 23:59 23:59 23:59 23:59 Intake Total 2421.001 6416.584 1170 Output Total 800 3775 600 Balance 0852.471 2088.584 570 - Objective General Appearance: positive: No acute distress, Alert Eyes Bilateral: positive: Normal inspection, Conjunctivae nml ENT: positive: ENT inspection nml Neck: positive: Nml inspection Respiratory: positive: No respiratory distress. negative: Wheezes, Rales Cardiovascular: positive: Tachycardia. negative: Irregularly irregular, Systolic murmur Abdomen: positive: Non-tender, No distention. negative: Tenderness Skin: positive: Warm, Dry Extremities: positive: No pedal edema Neurologic/Psychiatric: negative: Disoriented to person, Disoriented to place - Lab Results Fish Bones: 08/10/21 04:52 08/10/21 17:30 Other Labs: Lab Results x24hrs 08/10/21 08/10/21 08/10/21 Range/Units 04:52 04:52 04:52 WBC 5.2 (4.8-10.8) x10^3/uL RBC 3.26 L (4.70-6.10) 10^6/uL Hgb 11.6 L (14.0-18.0) g/dL Hct 31.8 L (42.0-52.0) % MCV 97.5 H (80.0-94.0) fL MCH 35.6 H (27.0-31.0) pg MCHC 36.5 H (32.0-36.0) g/dL RDW 14.9 (12.0-15.0) % Plt Count 136 (130-450) 10^3/uL MPV 9.0 (7.4-11.4) fL Neut # (Auto) 3.8 (1.5-6.6) 10^3/uL Lymph # (Auto) 0.8 L (1.5-3.5) 10^3/uL [place] # (Auto) 0.5 (0.0-1.0) 10^3/uL Eos # (Auto) 0.0 (0.0-0.7) 10^3/uL Baso # (Auto) 0.0 (0.0-0.1) 10^3/uL Absolute Nucleated RBC 0.00 x10^3/uL Nucleated RBC % 0.0 /100WBC VBG pH 7.477 H (7.31-7.41) Ionized Calcium 1.05 L (1.15-1.33) mmol/L Sodium 126 L (135-145) mmol/L Potassium 2.8 L (3.5-5.0) mmol/L Chloride 86 L (101-111) mmol/L Carbon Dioxide 29 (21-32) mmol/L Anion Gap 11.0 (6-13) BUN 13 (6-20) mg/dL Creatinine 1.0 (0.6-1.2) mg/dL Estimated GFR (MDRD) 79 L (>89) Glucose 131 H (70-100) mg/dL Lactic Acid (0.5-2.2) mmol/L Calcium 8.0 L (8.5-10.3) mg/dL Phosphorus 1.4 L (2.5-4.6) mg/dL Magnesium 2.0 (1.7-2.8) mg/dL Urine Color Urine Clarity (CLEAR) Urine pH (5.0-7.5) PH Ur Specific [place] (1.002-1.030) Urine Protein (NEGATIVE) mg/dL Urine Glucose (UA) (NEGATIVE) mg/dL Urine Ketones (NEGATIVE) mg/dL Urine Occult Blood (NEGATIVE) Urine Nitrite (NEGATIVE) Urine Bilirubin (NEGATIVE) Urine Urobilinogen (NORMAL) E.U./dL Ur Leukocyte Esterase (NEGATIVE) Urine RBC (0-5) /HPF Urine WBC (0-3) /HPF Ur Squamous Epith Cells (<= Few) Urine Bacteria (None Seen) /HPF Urine Casts /LPF Urine Mucus Ur Microscopic Review Urine Culture Comments Urine Sodium mmol/L Urine Opiates Screen (NEGATIVE) Ur Oxycodone Screen (NEGATIVE) Urine Methadone Screen (NEGATIVE) Ur Propoxyphene Screen (NEGATIVE) Ur Barbiturates Screen (NEGATIVE) Ur Tricyclics Screen (NEGATIVE) Ur Phencyclidine Scrn (NEGATIVE) Ur Amphetamine Screen (NEGATIVE) U Methamphetamines Scrn (NEGATIVE) U Benzodiazepines Scrn (NEGATIVE) Urine Cocaine Screen (NEGATIVE) U Cannabinoids Screen (NEGATIVE) 08/09/21 08/09/21 08/09/21 Range/Units 21:13 21:13 19:00 WBC (4.8-10.8) x10^3/uL RBC (4.70-6.10) 10^6/uL Hgb (14.0-18.0) g/dL Hct (42.0-52.0) % MCV (80.0-94.0) fL MCH (27.0-31.0) pg MCHC (32.0-36.0) g/dL RDW (12.0-15.0) % Plt Count (130-450) 10^3/uL MPV (7.4-11.4) fL Neut # (Auto) (1.5-6.6) 10^3/uL Lymph # (Auto) (1.5-3.5) 10^3/uL [place] # (Auto) (0.0-1.0) 10^3/uL Eos # (Auto) (0.0-0.7) 10^3/uL Baso # (Auto) (0.0-0.1) 10^3/uL Absolute Nucleated RBC x10^3/uL Nucleated RBC % /100WBC VBG pH 7.506 H (7.31-7.41) Ionized Calcium 0.96 L (1.15-1.33) mmol/L Sodium 124 L (135-145) mmol/L Potassium 3.0 L (3.5-5.0) mmol/L Chloride 85 L (101-111) mmol/L Carbon Dioxide 28 (21-32) mmol/L Anion Gap 11.0 (6-13) BUN 16 (6-20) mg/dL Creatinine 1.0 (0.6-1.2) mg/dL Estimated GFR (MDRD) 79 L (>89) Glucose 166 H (70-100) mg/dL Lactic Acid 2.2 (0.5-2.2) mmol/L Calcium 7.5 L (8.5-10.3) mg/dL Phosphorus (2.5-4.6) mg/dL Magnesium 2.1 (1.7-2.8) mg/dL Urine Color Urine Clarity (CLEAR) Urine pH (5.0-7.5) PH Ur Specific [place] (1.002-1.030) Urine Protein (NEGATIVE) mg/dL Urine Glucose (UA) (NEGATIVE) mg/dL Urine Ketones (NEGATIVE) mg/dL Urine Occult Blood (NEGATIVE) Urine Nitrite (NEGATIVE) Urine Bilirubin (NEGATIVE) Urine Urobilinogen (NORMAL) E.U./dL Ur Leukocyte Esterase (NEGATIVE) Urine RBC (0-5) /HPF Urine WBC (0-3) /HPF Ur Squamous Epith Cells (<= Few) Urine Bacteria (None Seen) /HPF Urine Casts /LPF Urine Mucus Ur Microscopic Review Urine Culture Comments Urine Sodium mmol/L Urine Opiates Screen (NEGATIVE) Ur Oxycodone Screen (NEGATIVE) Urine Methadone Screen (NEGATIVE) Ur Propoxyphene Screen (NEGATIVE) Ur Barbiturates Screen (NEGATIVE) Ur Tricyclics Screen (NEGATIVE) Ur Phencyclidine Scrn (NEGATIVE) Ur Amphetamine Screen (NEGATIVE) U Methamphetamines Scrn (NEGATIVE) U Benzodiazepines Scrn (NEGATIVE) Urine Cocaine Screen (NEGATIVE) U Cannabinoids Screen (NEGATIVE) 08/09/21 08/09/21 08/09/21 Range/Units 16:56 16:56 13:00 WBC (4.8-10.8) x10^3/uL RBC (4.70-6.10) 10^6/uL Hgb (14.0-18.0) g/dL Hct (42.0-52.0) % MCV (80.0-94.0) fL MCH (27.0-31.0) pg MCHC (32.0-36.0) g/dL RDW (12.0-15.0) % Plt Count (130-450) 10^3/uL MPV (7.4-11.4) fL Neut # (Auto) (1.5-6.6) 10^3/uL Lymph # (Auto) (1.5-3.5) 10^3/uL [place] # (Auto) (0.0-1.0) 10^3/uL Eos # (Auto) (0.0-0.7) 10^3/uL Baso # (Auto) (0.0-0.1) 10^3/uL Absolute Nucleated RBC x10^3/uL Nucleated RBC % /100WBC VBG pH (7.31-7.41) Ionized Calcium (1.15-1.33) mmol/L Sodium 123 L 115 L* (135-145) mmol/L Potassium 3.3 L 3.3 L (3.5-5.0) mmol/L Chloride 83 L 79 L* (101-111) mmol/L Carbon Dioxide 26 20 L (21-32) mmol/L Anion Gap 14.0 H 16.0 H (6-13) BUN 19 21 H (6-20) mg/dL Creatinine 1.1 1.3 H (0.6-1.2) mg/dL Estimated GFR (MDRD) 71 L 58 L (>89) Glucose 141 H 170 H (70-100) mg/dL Lactic Acid 2.0 (0.5-2.2) mmol/L Calcium 7.4 L 7.3 L (8.5-10.3) mg/dL Phosphorus (2.5-4.6) mg/dL Magnesium 2.1 2.1 (1.7-2.8) mg/dL Urine Color Urine Clarity (CLEAR) Urine pH (5.0-7.5) PH Ur Specific [place] (1.002-1.030) Urine Protein (NEGATIVE) mg/dL Urine Glucose (UA) (NEGATIVE) mg/dL Urine Ketones (NEGATIVE) mg/dL Urine Occult Blood (NEGATIVE) Urine Nitrite (NEGATIVE) Urine Bilirubin (NEGATIVE) Urine Urobilinogen (NORMAL) E.U./dL Ur Leukocyte Esterase (NEGATIVE) Urine RBC (0-5) /HPF Urine WBC (0-3) /HPF Ur Squamous Epith Cells (<= Few) Urine Bacteria (None Seen) /HPF Urine Casts /LPF Urine Mucus Ur Microscopic Review Urine Culture Comments Urine Sodium mmol/L Urine Opiates Screen (NEGATIVE) Ur Oxycodone Screen (NEGATIVE) Urine Methadone Screen (NEGATIVE) Ur Propoxyphene Screen (NEGATIVE) Ur Barbiturates Screen (NEGATIVE) Ur Tricyclics Screen (NEGATIVE) Ur Phencyclidine Scrn (NEGATIVE) Ur Amphetamine Screen (NEGATIVE) U Methamphetamines Scrn (NEGATIVE) U Benzodiazepines Scrn (NEGATIVE) Urine Cocaine Screen (NEGATIVE) U Cannabinoids Screen (NEGATIVE) 08/09/21 08/09/21 08/09/21 Range/Units 09:13 09:13 08:00 WBC (4.8-10.8) x10^3/uL RBC (4.70-6.10) 10^6/uL Hgb (14.0-18.0) g/dL Hct (42.0-52.0) % MCV (80.0-94.0) fL MCH (27.0-31.0) pg MCHC (32.0-36.0) g/dL RDW (12.0-15.0) % Plt Count (130-450) 10^3/uL MPV (7.4-11.4) fL Neut # (Auto) (1.5-6.6) 10^3/uL Lymph # (Auto) (1.5-3.5) 10^3/uL [place] # (Auto) (0.0-1.0) 10^3/uL Eos # (Auto) (0.0-0.7) 10^3/uL Baso # (Auto) (0.0-0.1) 10^3/uL Absolute Nucleated RBC x10^3/uL Nucleated RBC % /100WBC VBG pH (7.31-7.41) Ionized Calcium (1.15-1.33) mmol/L Sodium 119 L* (135-145) mmol/L Potassium 3.6 (3.5-5.0) mmol/L Chloride 79 L* (101-111) mmol/L Carbon Dioxide 19 L (21-32) mmol/L Anion Gap 21.0 H (6-13) BUN 24 H (6-20) mg/dL Creatinine 1.4 H (0.6-1.2) mg/dL Estimated GFR (MDRD) 54 L (>89) Glucose 167 H (70-100) mg/dL Lactic Acid 4.8 H* (0.5-2.2) mmol/L Calcium 7.1 L (8.5-10.3) mg/dL Phosphorus (2.5-4.6) mg/dL Magnesium 1.6 L (1.7-2.8) mg/dL Urine Color Urine Clarity (CLEAR) Urine pH (5.0-7.5) PH Ur Specific [place] (1.002-1.030) Urine Protein (NEGATIVE) mg/dL Urine Glucose (UA) (NEGATIVE) mg/dL Urine Ketones (NEGATIVE) mg/dL Urine Occult Blood (NEGATIVE) Urine Nitrite (NEGATIVE) Urine Bilirubin (NEGATIVE) Urine Urobilinogen (NORMAL) E.U./dL Ur Leukocyte Esterase (NEGATIVE) Urine RBC (0-5) /HPF Urine WBC (0-3) /HPF Ur Squamous Epith Cells (<= Few) Urine Bacteria (None Seen) /HPF Urine Casts /LPF Urine Mucus Ur Microscopic Review Urine Culture Comments Urine Sodium 24.0 mmol/L Urine Opiates Screen (NEGATIVE) Ur Oxycodone Screen (NEGATIVE) Urine Methadone Screen (NEGATIVE) Ur Propoxyphene Screen (NEGATIVE) Ur Barbiturates Screen (NEGATIVE) Ur Tricyclics Screen (NEGATIVE) Ur Phencyclidine Scrn (NEGATIVE) Ur Amphetamine Screen (NEGATIVE) U Methamphetamines Scrn (NEGATIVE) U Benzodiazepines Scrn (NEGATIVE) Urine Cocaine Screen (NEGATIVE) U Cannabinoids Screen (NEGATIVE) 08/09/21 Range/Units 08:00 WBC (4.8-10.8) x10^3/uL RBC (4.70-6.10) 10^6/uL Hgb (14.0-18.0) g/dL Hct (42.0-52.0) % MCV (80.0-94.0) fL MCH (27.0-31.0) pg MCHC (32.0-36.0) g/dL RDW (12.0-15.0) % Plt Count (130-450) 10^3/uL MPV (7.4-11.4) fL Neut # (Auto) (1.5-6.6) 10^3/uL Lymph # (Auto) (1.5-3.5) 10^3/uL [place] # (Auto) (0.0-1.0) 10^3/uL Eos # (Auto) (0.0-0.7) 10^3/uL Baso # (Auto) (0.0-0.1) 10^3/uL Absolute Nucleated RBC x10^3/uL Nucleated RBC % /100WBC VBG pH (7.31-7.41) Ionized Calcium (1.15-1.33) mmol/L Sodium (135-145) mmol/L Potassium (3.5-5.0) mmol/L Chloride (101-111) mmol/L Carbon Dioxide (21-32) mmol/L Anion Gap (6-13) BUN (6-20) mg/dL Creatinine (0.6-1.2) mg/dL Estimated GFR (MDRD) (>89) Glucose (70-100) mg/dL Lactic Acid (0.5-2.2) mmol/L Calcium (8.5-10.3) mg/dL Phosphorus (2.5-4.6) mg/dL Magnesium (1.7-2.8) mg/dL Urine Color YELLOW Urine Clarity HAZY (CLEAR) Urine pH 6.0 (5.0-7.5) PH Ur Specific [place] >=1.030 H (1.002-1.030) Urine Protein 30 H (NEGATIVE) mg/dL Urine Glucose (UA) NEGATIVE (NEGATIVE) mg/dL Urine Ketones 15 H (NEGATIVE) mg/dL Urine Occult Blood MODERATE H (NEGATIVE) Urine Nitrite NEGATIVE (NEGATIVE) Urine Bilirubin NEGATIVE (NEGATIVE) Urine Urobilinogen 0.2 (NORMAL) (NORMAL) E.U./dL Ur Leukocyte Esterase NEGATIVE (NEGATIVE) Urine RBC 6-10 H (0-5) /HPF Urine WBC 4-5 (0-3) /HPF Ur Squamous Epith Cells RARE Squamous (<= Few) Urine Bacteria Rare (None Seen) /HPF Urine Casts 6-10 Granular Casts /LPF Urine Mucus Few Strands Ur Microscopic Review Cancelled Urine Culture Comments NOT INDICATED Urine Sodium mmol/L Urine Opiates Screen POSITIVE H (NEGATIVE) Ur Oxycodone Screen NEGATIVE (NEGATIVE) Urine Methadone Screen NEGATIVE (NEGATIVE) Ur Propoxyphene Screen NEGATIVE (NEGATIVE) Ur Barbiturates Screen NEGATIVE (NEGATIVE) Ur Tricyclics Screen NEGATIVE (NEGATIVE) Ur Phencyclidine Scrn NEGATIVE (NEGATIVE) Ur Amphetamine Screen NEGATIVE (NEGATIVE) U Methamphetamines Scrn NEGATIVE (NEGATIVE) U Benzodiazepines Scrn NEGATIVE (NEGATIVE) Urine Cocaine Screen NEGATIVE (NEGATIVE) U Cannabinoids Screen NEGATIVE (NEGATIVE) Assessment/Plan - Problem List (1) Hyponatremia Impression: This is hypovolemic hyponatremia. His sodium is slowly improving as he responds to IV fluids. Today it is 126. His urine sodium was decreased at 24 which also suggest hyperemic hyponatremia especially given his history of nausea and vomiting as well as decreased oral intake. We will continue with gentle IV hydration and repeat labs this afternoon. If his sodium continues to trend in the right direction then he can be transferred to [facility]. (2) Nausea and vomiting Impression: This was likely secondary to alcoholic gastritis. This is improved and he is tolerating a diet. Continue with p.o. Protonix and Zofran as needed. Qualifiers: Vomiting type: unspecified Vomiting Intractability: non-intractable David lified Code(s): R11.2 - Nausea with vomiting, unspecified (3) Alcohol abuse Impression: He was counseled once again on the importance of alcohol cessation. He currently shows no evidence of withdrawal but he has been receiving Librium. We will begin to taper this down. (4) ROBERT (acute kidney injury) Impression: This was prerenal in nature. He responded well to IV fluids and his renal function is back to baseline. We will continue to monitor. (5) Alcoholic cirrhosis Impression: He has alcoholic cirrhosis this is evident by his mildly elevated LFTs and pre viously elevated ammonia. We will continue his lactulose now that is taking p.o. Qualifiers: Ascites presence: without ascites Qualified Code(s): K70.30 - Alcoholic cirrhosis of liver without ascites (6) Hypokalemia Impression: This is secondary to the GI losses. This is ongoing I will continue with potassium supplementation. (7) Suicidal ideations Impression: Initially had suicidal ideations on admission but now he denies this. We will have social work meet with him as he may need DCR evaluation. (8) Tinnitus Impression: This is unfortunately a chronic problem for him. He does well with the Librium. As you taper this down, we will resume his home alprazolam. Continue outpatient follow-up with ENT. Qualifiers: Laterality: bilateral Qualified Code(s): H93.13 - Tinnitus, bilateral (9) Mixed acid base balance disorder Impression: Had metabolic alkalosis and alcoholic ketoacidosis which have both resolved.
[2021-08-10] MEDS: PRENATAL VITAMIN TABLET PO SCH (10:10)
[2021-08-10] MEDS: THIAMINE 100 MG TABLET PO SCH (10:10)
[2021-08-10] MEDS: SODIUM CHLORIDE FLUSH 0.9% 10 ML SYRINGE IVP SCH ×3 (10:12→23:17)
[2021-08-10 12:20] LABS: CREATININE 0.9 mg/dL (0.6-1.2); POTASSIUM 3.1 mmol/L (3.5-5.0)
[2021-08-10] MEDS: LACTULOSE 10 GM /15 ML UDC PO SCH ×3 (13:02→19:02)
[2021-08-10] MEDS ORDERED: POTASSIUM CHLORIDE 20 MEQ TABLET PO ONE ×2 (13:50→19:49)
[2021-08-10] MEDS ORDERED: CALCIUM CARBONATE CHEW 500 MG TABLET PO PRN (18:09)
[2021-08-10] MEDS: buPROPion SR 150 MG TABLET PO SCH (20:30)
[2021-08-10 21:56] LABS: CALCIUM, IONIZED 1.04 mmol/L (1.15-1.33); VBG PH 7.452 (7.31-7.41)
[2021-08-10 22:01] LABS: MAGNESIUM 1.7 mg/dL (1.7-2.8); PHOSPHORUS 1.5 mg/dL (2.5-4.6); POTASSIUM 3.4 mmol/L (3.5-5.0)
[2021-08-10] MEDS ORDERED: MAGNESIUM SULFATE 2 GRAM 2 GM/50 ML BAG IV ONE (22:22)
[2021-08-10] MEDS ORDERED: CALCIUM GLUCONATE 1,000 MG in SODIUM CHLORIDE 0.9% 50 ML IV ONE (22:22)
[2021-08-11] MEDS: HYDROmorphone 0.5 MG/0.5 ML SYRINGE IVP PRN (00:17)
[2021-08-11] MEDS: POTASSIUM CHLOR 10 MEQ/100 ML 10 MEQ/100 ML BAG IV SCH ×8 (00:17→10:33)
[2021-08-11] MEDS: LACTULOSE 10 GM /15 ML UDC PO SCH ×4 (00:24→16:09)
[2021-08-11 04:01] LABS: CALCIUM, IONIZED 1.04 mmol/L (1.15-1.33); VBG PH 7.458 (7.31-7.41)
[2021-08-11 04:02] LABS: BASOPHILS # (AUTO) 0.1 10^3/uL (0.0-0.1); EOSINOPHILS % (AUTO) 0.6 %; HCT - HEMATOCRIT 33.8 % (42.0-52.0); LYMPHOCYTES # (AUTO) 1.1 10^3/uL (1.5-3.5); LYMPHOCYTES % (AUTO) 20.2 %; MEAN CORPUSCULAR HEMOGLOBIN 35.2 pg (27.0-31.0); MEAN CORPUSCULAR HGB CONC 35.5 g/dL (32.0-36.0); MEAN CORPUSCULAR VOLUME 99.1 fL (80.0-94.0); MEAN PLATELET VOLUME 9.4 fL (7.4-11.4); MONOCYTES # (AUTO) 0.4 10^3/uL (0.0-1.0); MONOCYTES % (AUTO) 7.6 %; NEUTROPHILS # (AUTO) 3.7 10^3/uL (1.5-6.6); NEUTROPHILS % (AUTO) 69.6 %; PLT - PLATELET COUNT 113 10^3/uL (130-450); RED BLOOD COUNT 3.41 10^6/uL (4.70-6.10); RED CELL DISTRIBUTION WIDTH 14.9 % (12.0-15.0); WHITE BLOOD COUNT 5.2 x10^3/uL (4.8-10.8)
[2021-08-11 04:22] LABS: BUN - BLOOD UREA NITROGEN < 5 mg/dL (6-20); CALCIUM 8.1 mg/dL (8.5-10.3); CARBON DIOXIDE - CO2 26 mmol/L (21-32); CHLORIDE 91 mmol/L (101-111); CREATININE 0.8 mg/dL (0.6-1.2); GFR - MDRD 102 (>89); GLUCOSE 195 mg/dL (70-100); PHOSPHORUS 1.4 mg/dL (2.5-4.6); POTASSIUM 3.2 mmol/L (3.5-5.0); SODIUM 129 mmol/L (135-145)
[2021-08-11] MEDS ORDERED: CALCIUM GLUCONATE 1,000 MG in SODIUM CHLORIDE 0.9% 50 ML IV ONE (04:35)
[2021-08-11] MEDS: SODIUM CHLORIDE FLUSH 0.9% 10 ML SYRINGE IVP PRN (05:03)
[2021-08-11] MEDS: chlordiazePOXIDE 25 MG CAPSULE PO SCH ×3 (05:03→20:57)
[2021-08-11] MEDS: SODIUM CHLORIDE 0.9% 1,000 ML IV SCH ×2 (05:03→16:13)
[2021-08-11] MEDS: MORPHINE 2 MG/ML CARPUJECT IVP PRN (05:03)
[2021-08-11] MEDS: PANTOPRAZOLE 40 MG TABLET PO SCH (06:38)
--- NOTE | 2021-08-11 07:35 | PROVIDER PROGRESS NOTE ---
Subjective - Prog Note Date Prog Note Date: 08/11/21 - Subjective Subjective: He reports feeling well. He feels like he is ready to go home tomorrow. Denies any trauma. Denies suicidal ideations. Current Medications - Current Medications Current Medications: Active Medications Acetaminophen (Acetaminophen 325 Mg Tablet) 650 mg PO Q4HR PRN PRN Reason: Pain 1 to 4 Bupropion HCl (Bupropion Sr 150 Mg Tablet) 150 mg PO BID PRATEEK Last Admin: 08/11/21 08:45 Dose: 150 mg Documented by: Calcium Carbonate/Glycine (Calcium Carbonate Chew 500 Mg Tablet) 500 mg PO BID PRN PRN Reason: Heartburn Last Admin: 08/11/21 08:45 Dose: 500 mg Documented by: Chlordiazepoxide HCl (Chlordiazepoxide 25 Mg Capsule) 25 mg PO TID PRATEEK Hydromorphone HCl (Hydromorphone 0.5 Mg/0.5 Ml Syringe) 0.5 mg IVP Q2H PRN PRN Reason: PAIN Last Admin: 08/11/21 00:17 Dose: 0.5 mg Documented by: Sodium Chloride (Normal Saline 0.9%) 1,000 mls @ 83.333 mls/hr IV .Q12H PRATEEK Last Admin: 08/11/21 05:03 Dose: 83.333 mls/hr Documented by: Sodium Phosphate 21 mmol/ (Sodium Chloride) 257 mls @ 64.25 mls/hr IV ONCE ONE; Protocol Stop: 08/11/21 11:59 Lactulose (Lactulose 10 Gm /15 Ml Udc) 10 gm PO Q6H PRATEEK Last Admin: 08/11/21 05:05 Dose: Not Given Documented by: Morphine Sulfate (Morphine 2 Mg/Ml Carpuject) 2 mg IVP Q2HR PRN PRN Reason: PAIN Last Admin: 08/11/21 05:03 Dose: 2 mg Documented by: Ondansetron HCl (Ondansetron Odt 4 Mg Tablet) 4 mg TL Q6HR PRN PRN Reason: Nausea / Vomiting Last Admin: 08/09/21 23:08 Dose: 4 mg Documented by: Oxycodone HCl (Oxycodone 5 Mg Tablet) 5 mg PO Q4HR PRN PRN Reason: PAIN Last Admin: 08/10/21 01:14 Dose: 5 mg Documented by: Pantoprazole Sodium (Pantoprazole 40 Mg Tablet) 40 mg PO QDAC [facility] Last Admin: 08/11/21 06:38 Dose: 40 mg Documented by: Potassium Chloride (Potassium Chloride 20 Meq Tablet) 20 meq PO DAILYWM [facility] Last Admin: 08/11/21 08:46 Dose: 20 meq Documented by: Multivit/Folic Acid/Iron ( Vitamin Tablet) 1 tab PO DAILY [facility] Last Admin: 08/11/21 08:46 Dose: 1 tab Documented by: Prochlorperazine Edisylate (Prochlorperazine 10 Mg/2 Ml Vial) 10 mg IVP Q6HR PRN PRN Reason: Nausea / Vomiting Last Admin: 08/10/21 05:53 Dose: 10 mg Documented by: Sodium Chloride (Sodium Chloride Flush 0.9% 10 Ml Syringe) 10 ml IVP PRN PRN PRN Reason: NEEDED PER PROVIDER ORDERS Last Admin: 08/11/21 05:03 Dose: 10 ml Documented by: Sodium Chloride (Sodium Chloride Flush 0.9% 10 Ml Syringe) 10 ml IVP 0100,0900,1700 [facility] Last Admin: 08/10/21 23:17 Dose: 10 ml Documented by: Thiamine HCl (Thiamine 100 Mg Tablet) 100 mg PO DAILY [facility] Last Admin: 08/11/21 08:46 Dose: 100 mg Documented by: Omeprazole 1 cap PO DAILY 01/25/21 traMADol [Ultram] 2 tab PO DAILY 01/25/21 Alprazolam [Xanax] 1 tablet PO DAILY 06/27/21 Objective - Vital Signs/Intake & Output Reviewed Vital Signs: Yes Vital Signs: Vital Signs x48h Temp Pulse Resp BP Pulse Ox 08/11/21 07:00 92 16 124/87 H 98 08/11/21 06:00 93 26 H 120/79 97 08/11/21 05:00 36.5 C 98 16 131/88 H 98 08/11/21 04:00 107 H 24 145/104 H 100 08/11/21 03:00 90 16 115/80 98 08/11/21 02:00 108 H 13 140/87 H 98 08/11/21 01:00 100 15 132/72 H 97 08/11/21 00:00 100 26 H 138/93 H 100 Intake & Output: Intake & Output 11/2508/09/21 08/10/21 08/11/21 23:59 23:59 23:59 23:59 Intake Total 2421.001 6416.584 5909.052 1596.108 Output Total 800 3775 1601 Balance 9379.770 7939.584 4308.052 1596.108 - Objective General Appearance: positive: No acute distress, Alert Eyes Bilateral: positive: Normal inspection, Conjunctivae nml ENT: positive: ENT inspection nml Neck: positive: Nml inspection Respiratory: positive: No respiratory distress. negative: Wheezes, Rales Cardiovascular: positive: Regular rate & rhythm. negative: Tachycardia, Systolic murmur Abdomen: positive: Non-tender, No distention. negative: Tenderness Skin: positive: Warm, Dry Extremities: positive: No pedal edema Neurologic/Psychiatric: negative: Disoriented to person, Disoriented to place - Lab Results Fish Bones: 08/11/21 03:54 08/11/21 10:01 Other Labs: Lab Results x24hrs 08/11/21 08/11/21 08/11/21 Range/Units 03:54 03:54 03:54 WBC 5.2 (4.8-10.8) x10^3/uL RBC 3.41 L (4.70-6.10) 10^6/uL Hgb 12.0 L (14.0-18.0) g/dL Hct 33.8 L (42.0-52.0) % MCV 99.1 H (80.0-94.0) fL MCH 35.2 H (27.0-31.0) pg MCHC 35.5 (32.0-36.0) g/dL RDW 14.9 (12.0-15.0) % Plt Count 113 L (130-450) 10^3/uL MPV 9.4 (7.4-11.4) fL Neut # (Auto) 3.7 (1.5-6.6) 10^3/uL Lymph # (Auto) 1.1 L (1.5-3.5) 10^3/uL Newberry # (Auto) 0.4 (0.0-1.0) 10^3/uL Eos # (Auto) 0.0 (0.0-0.7) 10^3/uL Baso # (Auto) 0.1 (0.0-0.1) 10^3/uL Absolute Nucleated RBC 0.00 x10^3/uL Nucleated RBC % 0.0 /100WBC VBG pH 7.458 H (7.31-7.41) Ionized Calcium 1.04 L (1.15-1.33) mmol/L Sodium 129 L (135-145) mmol/L Potassium 3.2 L (3.5-5.0) mmol/L Chloride 91 L (101-111) mmol/L Carbon Dioxide 26 (21-32) mmol/L Anion Gap 12.0 (6-13) BUN < 5 L (6-20) mg/dL Creatinine 0.8 (0.6-1.2) mg/dL Estimated GFR (MDRD) 102 (>89) Glucose 195 H (70-100) mg/dL Calcium 8.1 L (8.5-10.3) mg/dL Phosphorus 1.4 L (2.5-4.6) mg/dL Magnesium 2.0 (1.7-2.8) mg/dL 08/10/21 08/10/21 08/10/21 Range/Units 21:34 21:34 17:30 WBC (4.8-10.8) x10^3/uL RBC (4.70-6.10) 10^6/uL Hgb (14.0-18.0) g/dL Hct (42.0-52.0) % MCV (80.0-94.0) fL MCH (27.0-31.0) pg MCHC (32.0-36.0) g/dL RDW (12.0-15.0) % Plt Count (130-450) 10^3/uL MPV (7.4-11.4) fL Neut # (Auto) (1.5-6.6) 10^3/uL Lymph # (Auto) (1.5-3.5) 10^3/uL Newberry # (Auto) (0.0-1.0) 10^3/uL Eos # (Auto) (0.0-0.7) 10^3/uL Baso # (Auto) (0.0-0.1) 10^3/uL Absolute Nucleated RBC x10^3/uL Nucleated RBC % /100WBC VBG pH 7.452 H (7.31-7.41) Ionized Calcium 1.04 L (1.15-1.33) mmol/L Sodium (135-145) mmol/L Potassium 3.4 L 3.7 (3.5-5.0) mmol/L Chloride (101-111) mmol/L Carbon Dioxide (21-32) mmol/L Anion Gap (6-13) BUN (6-20) mg/dL Creatinine (0.6-1.2) mg/dL Estimated GFR (MDRD) (>89) Glucose (70-100) mg/dL Calcium (8.5-10.3) mg/dL Phosphorus 1.5 L (2.5-4.6) mg/dL Magnesium 1.7 (1.7-2.8) mg/dL 08/10/21 Range/Units 12:04 WBC (4.8-10.8) x10^3/uL RBC (4.70-6.10) 10^6/uL Hgb (14.0-18.0) g/dL Hct (42.0-52.0) % MCV (80.0-94.0) fL MCH (27.0-31.0) pg MCHC (32.0-36.0) g/dL RDW (12.0-15.0) % Plt Count (130-450) 10^3/uL MPV (7.4-11.4) fL Neut # (Auto) (1.5-6.6) 10^3/uL Lymph # (Auto) (1.5-3.5) 10^3/uL Newberry # (Auto) (0.0-1.0) 10^3/uL Eos # (Auto) (0.0-0.7) 10^3/uL Baso # (Auto) (0.0-0.1) 10^3/uL Absolute Nucleated RBC x10^3/uL Nucleated RBC % /100WBC VBG pH (7.31-7.41) Ionized Calcium (1.15-1.33) mmol/L Sodium 127 L (135-145) mmol/L Potassium 3.1 L (3.5-5.0) mmol/L Chloride 88 L (101-111) mmol/L Carbon Dioxide 28 (21-32) mmol/L Anion Gap 11.0 (6-13) BUN 9 (6-20) mg/dL Creatinine 0.9 (0.6-1.2) mg/dL Estimated GFR (MDRD) 89 (>89) Glucose 207 H (70-100) mg/dL Calcium 8.0 L (8.5-10.3) mg/dL Phosphorus (2.5-4.6) mg/dL Magnesium (1.7-2.8) mg/dL Assessment/Plan - Problem List (1) Hyponatremia Impression: This was hypovolemic hyponatremia. Sodium remains low but it is improving on a daily basis. Today it is 129. We will continue gentle IV hydration and will likely DC fluids later on this afternoon after we recheck a BMP. He will be transferred out of the ICU today. (2) Nausea and vomiting Impression: This was secondary to alcoholic gastritis. This has resolved. Continue p.o. Protonix. Qualifiers: Vomiting type: unspecified Vomiting Intractability: non-intractable Qualified Code(s): R11.2 - Nausea with vomiting, unspecified (3) Alcohol abuse Impression: He has been on Librium and currently does not show any evidence of withdrawal. Begin to taper the Librium today and will make it 3 times a day before switching it to twice daily tomorrow. He has been counseled on the importance of alcohol cessation. (4) Alcoholic cirrhosis Impression: This is stable. We are continuing his lactulose and titrating to 2-3 bowel movements a day. Qualifiers: Ascites presence: without ascites Qualified Code(s): K70.30 - Alcoholic cirrhosis of liver without ascites (5) Hypokalemia Impression: This is ongoing. This was secondary to GI losses. We will continue with potassium supplementation and recheck this afternoon. (6) Suicidal ideations Impression: He currently denies any suicidal ideations which he previously reported. (7) Tinnitus Impression: He finds improvement with Librium. We will begin to taper this down and once he is off of the Librium and we will continue his home alprazolam. We have recommended outpatient follow-up with ENT. Qualifiers: Laterality: bilateral Qualified Code(s): H93.13 - Tinnitus, bilateral (8) Mixed acid base balance disorder Impression: He had metabolic acidosis and alkalosis secondary to alcoholic ketoacidosis and GI losses. This has since resolved. (9) ROBERT (acute kidney injury) Impression: This is resolved.
[2021-08-11] MEDS ORDERED: SODIUM PHOSPHATE 21 MMOL in SODIUM CHLORIDE 0.9% 250 ML IV ONE (08:00)
[2021-08-11 08:01] LABS: ALBUMIN 3.1 g/dL (3.2-5.5); BILIRUBIN,DIRECT 0.4 mg/dL (0.1-0.5); TOTAL PROTEIN 5.9 g/dL (6.7-8.2)
[2021-08-11] MEDS: buPROPion SR 150 MG TABLET PO SCH ×2 (08:45→20:57)
[2021-08-11] MEDS: PRENATAL VITAMIN TABLET PO SCH (08:46)
[2021-08-11] MEDS: POTASSIUM CHLORIDE 20 MEQ TABLET PO SCH (08:46)
[2021-08-11] MEDS: THIAMINE 100 MG TABLET PO SCH (08:46)
[2021-08-11 10:10] LABS: CALCIUM, IONIZED 1.07 mmol/L (1.15-1.33); VBG PH 7.471 (7.31-7.41)
[2021-08-11 10:19] LABS: BUN - BLOOD UREA NITROGEN < 5 mg/dL (6-20); CALCIUM 8.3 mg/dL (8.5-10.3); CARBON DIOXIDE - CO2 29 mmol/L (21-32); CHLORIDE 95 mmol/L (101-111); CREATININE 0.7 mg/dL (0.6-1.2); GFR - MDRD 119 (>89); GLUCOSE 140 mg/dL (70-100); POTASSIUM 3.5 mmol/L (3.5-5.0); SODIUM 133 mmol/L (135-145)
[2021-08-11 10:30] LABS: ESTIMATED AVERAGE GLUCOSE 108 mg/dL (70-100); HEMOGLOBIN A1c% 5.4 % (4.27-6.07)
[2021-08-11] MEDS: SODIUM CHLORIDE FLUSH 0.9% 10 ML SYRINGE IVP SCH ×2 (11:30→16:13)
[2021-08-12] MEDS: LACTULOSE 10 GM /15 ML UDC PO SCH ×3 (00:16→12:56)
[2021-08-12] MEDS: SODIUM CHLORIDE FLUSH 0.9% 10 ML SYRINGE IVP SCH ×2 (00:17→08:22)
[2021-08-12] MEDS ORDERED: chlordiazePOXIDE 25 MG CAPSULE PO ONE (01:00)
[2021-08-12] MEDS: PANTOPRAZOLE 40 MG TABLET PO SCH (06:01)
[2021-08-12] MEDS: chlordiazePOXIDE 25 MG CAPSULE PO SCH (06:01)
[2021-08-12 06:11] LABS: BASOPHILS # (AUTO) 0.1 10^3/uL (0.0-0.1); BASOPHILS % (AUTO) 1.8 %; EOSINOPHILS # (AUTO) 0.1 10^3/uL (0.0-0.7); EOSINOPHILS % (AUTO) 1.6 %; HCT - HEMATOCRIT 35.8 % (42.0-52.0); HGB - HEMOGLOBIN 12.7 g/dL (14.0-18.0); LYMPHOCYTES # (AUTO) 1.5 10^3/uL (1.5-3.5); MEAN CORPUSCULAR HEMOGLOBIN 35.2 pg (27.0-31.0); MEAN CORPUSCULAR HGB CONC 35.5 g/dL (32.0-36.0); MEAN CORPUSCULAR VOLUME 99.2 fL (80.0-94.0); MEAN PLATELET VOLUME 9.2 fL (7.4-11.4); MONOCYTES # (AUTO) 0.7 10^3/uL (0.0-1.0); MONOCYTES % (AUTO) 10.8 %; NEUTROPHILS # (AUTO) 3.5 10^3/uL (1.5-6.6); NEUTROPHILS % (AUTO) 57.5 %; NRBC ABSOLUTE COUNT (AUTO) 0.02 x10^3/uL; NUCLEATED RED BLOOD CELLS AUTO 0.3 /100WBC; PLT - PLATELET COUNT 158 10^3/uL (130-450); RED BLOOD COUNT 3.61 10^6/uL (4.70-6.10); RED CELL DISTRIBUTION WIDTH 15.4 % (12.0-15.0); WHITE BLOOD COUNT 6.1 x10^3/uL (4.8-10.8)
[2021-08-12 06:29] LABS: BUN - BLOOD UREA NITROGEN < 5 mg/dL (6-20); CALCIUM 8.9 mg/dL (8.5-10.3); CARBON DIOXIDE - CO2 28 mmol/L (21-32); CHLORIDE 94 mmol/L (101-111); CREATININE 0.7 mg/dL (0.6-1.2); GFR - MDRD 119 (>89); GLUCOSE 104 mg/dL (70-100); MAGNESIUM 1.6 mg/dL (1.7-2.8); PHOSPHORUS 2.8 mg/dL (2.5-4.6); POTASSIUM 3.5 mmol/L (3.5-5.0); SODIUM 134 mmol/L (135-145)
[2021-08-12 07:50] VITALS: BP 130/81
--- NOTE | 2021-08-12 07:59 | Discharge Plan ---
Discharge Plan Problem Reviewed?: Yes Disposition: Home, Self Care Condition: Stable Prescriptions: chlordiazePOXIDE [Librium] 25 mg PO HS #2 cap Thiamine [Vitamin B-1] 100 mg PO DAILY #30 tablet Diet: Regular Activity Restrictions: Activity as Tolerated Health Concerns: You were admitted to the hospital because of nausea and vomiting which caused you to have low sodium and potassium. This also caused you to have what is called alcoholic ketoacidosis. This occurs when you drink too much alcohol and not enough food. Our body looks for other sources to make energy for itself but that unfortunately also cause it to produce acid within our body. You were treated with IV fluids with improvement in your sodium and the acid numbers returned to normal. You were treated with Librium to prevent alcohol withdrawal. Plan of Treatment: It is important that you try and refrain from drinking alcohol. You already have evidence of liver disease and if you continue drink alcohol you will be at risk for liver failure. It will also be important to follow-up with ENT/neurology for your tinnitus. Please take Librium this evening and once again tomorrow night. This will complete the taper which we have used to prevent alcohol withdrawal. Do not take your alprazolam/Xanax until you finish the Librium. Care Goals: The goals prevent further admissions for alcoholic ketoacidosis and to prevent progression of your liver disease. Assessment: The patient expressed understanding of the treatment plan. Additional Instructions or Follow Up instructions: Please follow-up with your primary care physician within 1 week to ensure that you are doing well after this hospitalization. No Smoking: If you smoke, Please STOP! Call for help. Follow-up with: Luis Hoyos MD [Primary Care Provider] -
[2021-08-12] MEDS ORDERED: MAGNESIUM OXIDE 400 MG TABLET PO SCH (08:00)
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
[2021-08-12] MEDS: THIAMINE 100 MG TABLET PO SCH (08:21)
[2021-08-12] MEDS: PRENATAL VITAMIN TABLET PO SCH (08:21)
[2021-08-12] MEDS: buPROPion SR 150 MG TABLET PO SCH (08:21)
[2021-08-12] MEDS: POTASSIUM CHLORIDE 20 MEQ TABLET PO SCH (08:21)
[2021-08-12] MEDS ORDERED: chlordiazePOXIDE 25 MG CAPSULE PO SCH (21:00)
== END 2021-08-12 13:15 | disposition home or self-care (01) | DRG 641 ==
LOC: EDUNIT# → ED 17:32 → ICU 19:51 → MS2 08-11 15:26
PROVIDERS: ADMIT Specialist; ATTEND Internal Medicine
DX: E87.1 Hypo-osmolality and hyponatremia (principal); N17.9 Acute kidney failure, unspecified; R45.851 Suicidal ideations; E86.0 Dehydration; E87.6 Hypokalemia; R11.2 Nausea with vomiting, unspecified; F10.229 Alcohol dependence with intoxication, unspecified; Y90.8 Blood alcohol level of 240 mg/100 ml or more; F41.8 Other specified anxiety disorders; G43.909 Migraine, unspecified, not intractable, without status migrainosus; E87.2 Acidosis; K70.30 Alcoholic cirrhosis of liver without ascites; H71.93 Unspecified cholesteatoma, bilateral; H93.12 Tinnitus, left ear; K21.9 Gastro-esophageal reflux disease without esophagitis; F11.21 Opioid dependence, in remission; Z20.822 Contact with and (suspected) exposure to COVID-19
CPT/HCPCS: 0202U; 36415; 70450; 71045; 74176; 80048; 80053; 80076; 80306; 80320; 81001; 82009; 82140; 82330; 82550; 82803; 83036; 83605; 83690; 83735; 84100; 84132; 84300; 85025; 85610; 87150; 96365; 96375; 99284; 99285; A9270; J1170; J3411; J7040; J7120; Q0162; 81003; 82310; 87086

== ENCOUNTER 2021-09-30 18:37 | Outpatient (CLI) | payer OTHER | END 2021-09-30 18:38 | disposition critical access hospital (66) | LOC: EMS 18:37 | DX: R51.9 Headache, unspecified (principal); H93.19 Tinnitus, unspecified ear; R25.1 Tremor, unspecified | CPT/HCPCS: A0425; A0429 ==

== ENCOUNTER 2021-09-30 19:17 | Emergency (ER) | payer OTHER ==
--- NOTE | 2021-09-30 21:51 | ED Physician Documentation ---
History of Present Illness - Stated complaint Stated Complaint: HEAD PAIN, TINNITIS, ETOH - Chief complaint Chief Complaint: Heent - History obtained from History obtained from: Patient, EMS - Additonal information Additional information: Patient is brought to the emergency department by EMS for chief complaint of alcohol intoxication and headache. Patient states that he drinks every day and has been drinking heavily today. He feels he is drunk about the same amount of alcohol as he normally drinks on a daily basis. He states he feels little dizzy, which he clarifies to me any lightheaded feeling. No chest pain or shortness of breath. No nausea or vomiting. The patient denies any other complaints at this time. Review of Systems Ten Systems: 10 systems reviewed and negative Constitutional: reports: Reviewed and negative Eyes: reports: Reviewed and negative Ears: reports: Reviewed and negative Nose: reports: Reviewed and negative Throat: reports: Reviewed and negative Cardiac: reports: Reviewed and negative Respiratory: reports: Reviewed and negative GI: reports: Reviewed and negative : reports: Reviewed and negative Skin: reports: Reviewed and negative Musculoskeletal: reports: Reviewed and negative Neurologic: reports: Reviewed and negative Psychiatric: reports: Reviewed and negative Endocrine: reports: Reviewed and negative Immunocompromised: reports: Reviewed and negative PD PAST MEDICAL HISTORY - Past Medical History Past Medical History: Yes Cardiovascular: None Respiratory: None Neuro: CVA, Migraines, Other Endocrine/Autoimmune: None GI: GERD, Hiatal hernia, Other : Other HEENT: Chronic hearing loss, Other Psych: Depression, Anxiety Musculoskeletal: None Derm: None - Past Surgical History Past Surgical History: No HEENT: Tonsil/Adenoidectomy, Other - Present Medications Home Medications: Ambulatory Orders Medication Instructions Recorded Confirmed Omeprazole 1 cap PO DAILY 01/25/21 08/08/21 traMADol [Ultram] 2 tab PO DAILY 01/25/21 08/08/21 buPROPion [Wellbutrin Sr] 150 mg PO BID #40 tablet 01/26/21 08/08/21 Alprazolam [Xanax] 1 tablet PO DAILY 06/27/21 08/08/21 Meclizine HCl [Motion Sickness] 25 mg PO Q8H PRN #40 tablet 06/27/21 08/08/21 Ondansetron Odt [Zofran Odt] 4 mg TL Q6H PRN #20 tablet 06/27/21 08/08/21 Sumatriptan [Imitrex] 20 mg NS DAILY PRN #5 bottle 06/28/21 08/08/21 Lactulose 15 ml PO Q6H #240 ml 07/20/21 08/08/21 Thiamine [Vitamin B-1] 100 mg PO DAILY #30 tablet 08/12/21 chlordiazePOXIDE [Librium] 25 mg PO HS #2 cap 08/12/21 - Allergies Allergies/Adverse Reactions: Allergies Allergy/AdvReac Type Severity Reaction Status Date / Time No Known Drug Allergies Allergy Verified 09/30/21 19:28 - Social History Does the pt smoke?: No Smoking Status: Never smoker Does the pt drink ETOH?: Yes Does the pt have substance abuse?: No - Immunizations Immunizations are current?: Yes - POLST Patient has POLST: No POLST Status: Full Code PD ED PE NORMAL - Vitals Vital signs reviewed: Yes - General General: No acute distress, Well developed/nourished, Other (The patient is awake and answers questions appropriately. Responses are slowed and patient smells of alcohol. He appears moderately intoxicated.) - HEENT HEENT: Atraumatic, PERRL, EOMI, Moist mucous membranes - Neck Neck: Supple, no meningeal sign - Cardiac Cardiac: RRR, No murmur - Respiratory Respiratory: No respiratory distress, Clear bilaterally - Abdomen Abdomen: Soft, Non tender, Non distended - Derm Derm: Normal color, Warm and dry, No rash - Extremities Extremities: No deformity, No edema - Neuro Neuro: wire weaver 2-12 intact, Other (The patient has somewhat slurred speech and responses are somewhat slowed, but patient otherwise is actually oriented and appropriate. Patient is clearly intoxicated, moving all 4 extremities.) - Psych Psych: Normal mood, Normal affect Results - Vitals Vitals: Vital Signs - 24 hr 09/30/21 19:25 Temperature 36.2 C L Heart Rate 105 H Respiratory 19 Rate Blood Pressure 146/56 H O2 Saturation 97 Oxygen O2 Source Room air - Labs Labs: Laboratory Tests 09/30/21 21:15 Ethyl Alcohol 419.5 PD MEDICAL DECISION MAKING - ED course Complexity details: reviewed results, re-evaluated patient, considered differential, d/w patient ED course: Patient was found to be clinically intoxicated and had an alcohol level of 419. Given the patient's daily heavy drinking, this is most likely the reason he is still fairly functional despite being intoxicated at this alcohol level. I did not find any evidence of trauma and the patient other than being intoxicated was moving all 4 extremities and neurologically intact. The patient wished to go home. We will call his to come and pick him up. If the patient decides he would like to pursue treatment for alcohol, he has been given a list of resources to this end. We have discussed the usual indications for return. Departure - Departure Disposition: 01 Home, Self Care Clinical Impression: Alcohol intoxication Condition: Stable Instructions: ED Alcohol Intoxication Comments: Please consider getting help with your alcohol abuse.
[2021-09-30 22:37] VITALS: BP 138/60
== END 2021-09-30 22:35 | disposition home or self-care (01) ==
LOC: EDUNIT# → ED 19:17
DX: F10.129 Alcohol abuse with intoxication, unspecified (principal); Y90.8 Blood alcohol level of 240 mg/100 ml or more
CPT/HCPCS: 36415; 80320; 99282; 99283

== ENCOUNTER 2021-10-05 13:44 | Outpatient (CLI) | payer OTHER | END 2021-10-05 13:45 | disposition critical access hospital (66) | LOC: EMS 13:44 | DX: R41.82 Altered mental status, unspecified (principal); R53.1 Weakness; Z72.89 Other problems related to lifestyle | CPT/HCPCS: A0425; A0427 ==

== ENCOUNTER 2021-10-05 13:58 | Inpatient (IN) | payer OTHER ==
[2021-10-05] MEDS ORDERED: SODIUM CHLORIDE 0.9% 1,000 ML IV STA ×2 (14:04→15:00)
--- NOTE | 2021-10-05 14:10 | ED Physician Documentation ---
History of Present Illness - Stated complaint Stated Complaint: ETOH/CONFUSION - Chief complaint Chief Complaint: Neuro - Additonal information Additional information: 51-year-old male is brought to the emergency department for acutely altered mental status. This gentleman has a history of heavy alcohol abuse as well as a known history of chronic tinnitus. He had a prolonged hospitalization in late July for alcohol withdrawal and alcoholic ketoacidosis and severe hyponatremia This gentleman has been residing recently at his ex-'s house. The DCR on- call today has been trying to get the patient placed for gravely disabled. A pparently he has become less functional over the ensuing weeks. The room in which he was staying is covered in feces and urine. The patient reportedly is drinking a liter or 2 of vodka daily. Per his ex no alcohol use for about 8 hours. However he has been having some intermittent vomiting and complaints of headache. PT is noted to be hypoxic on room air (87%); placed to 3 liters nasal canula On presentation to the ER right now he has a blood glucose of 139. He is however quite altered and somnolent. GCS is 9 localizing pain only though weakly. Pupils are equal and reactive. If we are able to medically clear the long-term plan with DCR would be to involuntarily detain him for gravely disabled. Review of Systems Unable to obtain: AMS, Other (Per EMS and ex-.) PD PAST MEDICAL HISTORY - Past Medical History Cardiovascular: None Respiratory: None Neuro: CVA, Migraines, Other Endocrine/Autoimmune: None GI: GERD, Hiatal hernia, Other : Other HEENT: Chronic hearing loss, Other Psych: Depression, Anxiety Musculoskeletal: None Derm: None - Past Surgical History Past Surgical History: No HEENT: Tonsil/Adenoidectomy, Other - Present Medications Home Medications: Ambulatory Orders Medication Instructions Recorded Confirmed Omeprazole 1 cap PO DAILY 01/25/21 08/08/21 traMADol [Ultram] 2 tab PO DAILY 01/25/21 08/08/21 buPROPion [Wellbutrin Sr] 150 mg PO BID #40 tablet 01/26/21 08/08/21 Alprazolam [Xanax] 1 tablet PO DAILY 06/27/21 08/08/21 Meclizine HCl [Motion Sickness] 25 mg PO Q8H PRN #40 tablet 06/27/21 08/08/21 Ondansetron Odt [Zofran Odt] 4 mg TL Q6H PRN #20 tablet 06/27/21 08/08/21 Sumatriptan [Imitrex] 20 mg NS DAILY PRN #5 bottle 06/28/21 08/08/21 Lactulose 15 ml PO Q6H #240 ml 07/20/21 08/08/21 Thiamine [Vitamin B-1] 100 mg PO DAILY #30 tablet 08/12/21 chlordiazePOXIDE [Librium] 25 mg PO HS #2 cap 08/12/21 - Allergies Allergies/Adverse Reactions: Allergies Allergy/AdvReac Type Severity Reaction Status Date / Time No Known Drug Allergies Allergy Verified 10/05/21 14:03 - Social History Does the pt smoke?: No Smoking Status: Never smoker Does the pt drink ETOH?: Yes Does the pt have substance abuse?: No - Immunizations Immunizations are current?: Yes - POLST Patient has POLST: No POLST Status: Full Code PD ED PE EXPANDED - General General: Lethargic - HEENT HEENT: PERRL (3mm bilaterally), Dry mucous membranes - Neck Neck: Supple w/out meningeal sx. No: Adenopathy - Cardiac Cardiac: Tachy, Radial strong equal, Pedal strong equal, Cap refill < 2 sec. No: Murmur Present - Respiratory Respiratory: Clear to ausultation claudette. No: Distress, Labored - Abdomen Abdomen: Normal Bowel sounds. No: Tender to palpation - Derm Derm: Normal color, Warm and dry. No: Rash - Neuro Neuro: Lethargic, Unresponsive - GCS Eye Opening: To Pain Motor: Localizes to Pain Verbal: Incomprehensible Total: 9 Results - Vitals Vitals: Vital Signs - 24 hr 10/05/21 10/05/21 10/05/21 14:03 14:06 14:36 Temperature 36.1 C L Heart Rate 109 H 98 95 Respiratory 21 14 22 Rate Blood Pressure 108/80 108/69 108/69 O2 Saturation 96 98 99 10/05/21 10/05/21 15:36 16:00 Temperature Heart Rate 97 97 Respiratory 20 20 Rate Blood Pressure 114/71 111/71 O2 Saturation 99 100 Oxygen O2 Source Nasal cannula - Labs Labs: Laboratory Tests 10/05/21 10/05/21 10/05/21 14:00 14:15 14:15 WBC 5.9 RBC 4.15 L Hgb 14.6 Hct 39.2 L MCV 94.5 H MCH 35.2 H MCHC 37.2 H RDW 11.9 L Plt Count 72 L MPV 9.0 Neut # (Auto) 4.0 Lymph # (Auto) 1.5 [place] # (Auto) 0.3 Eos # (Auto) 0.1 Baso # (Auto) 0.0 Absolute Nucleated RBC 0.00 Nucleated RBC % 0.0 Sodium 133 L Potassium 2.5 L* Chloride 89 L Carbon Dioxide 25 Anion Gap 19.0 H BUN 12 Creatinine 0.8 Estimated GFR (MDRD) 102 Glucose 136 H Lactic Acid Calcium 7.8 L Total Bilirubin 1.5 H AST 293 H ALT 108 H Alkaline Phosphatase 78 Ammonia Total Protein 6.1 L Albumin 3.8 Globulin 2.3 Albumin/Globulin Ratio 1.7 Lipase 80 H TSH Urine Color Urine Clarity Urine pH Ur Specific [place] Urine Protein Urine Glucose (UA) Urine Ketones Urine Occult Blood Urine Nitrite Urine Bilirubin Urine Urobilinogen Ur Leukocyte Esterase Urine RBC Urine WBC Ur Squamous Epith Cells Urine Bacteria Ur Microscopic Review Urine Culture Comments Nasal Adenovirus (PCR) NOT DETECTED Nasal B. parapertussis DNA (PCR) NOT DETECTED Nasal Coronavir 229E PCR NOT DETECTED Nasal Coronavir HKU1 PCR NOT DETECTED Nasal Coronavir NL63 PCR NOT DETECTED Nasal Coronavir OC43 PCR NOT DETECTED Nasal Enterovir/Rhinovir PCR NOT DETECTED Nasal Influenza B PCR NOT DETECTED Nasal Influenza A PCR NOT DETECTED Nasal Parainfluen 1 PCR NOT DETECTED Nasal Parainfluen 2 PCR NOT DETECTED Nasal Parainfluen 3 PCR NOT DETECTED Nasal Parainfluen 4 PCR NOT DETECTED Nasal RSV (PCR) NOT DETECTED Nasal B.pertussis DNA PCR NOT DETECTED Nasal C.pneumoniae (PCR) NOT DETECTED Tarun Human Metapneumo PCR NOT DETECTED Nasal M.pneumoniae (PCR) NOT DETECTED Nasal SARS-CoV-2 (PCR) NOT DETECTED Salicylates < 6.0 Urine Opiates Screen Ur Oxycodone Screen Urine Methadone Screen Ur Propoxyphene Screen Acetaminophen < 10 L Ur Barbiturates Screen Ur Tricyclics Screen Ur Phencyclidine Scrn Ur Amphetamine Screen U Methamphetamines Scrn U Benzodiazepines Scrn Urine Cocaine Screen U Cannabinoids Screen Ethyl Alcohol 291.2 Serum Ketones SMALL H 10/05/21 10/05/21 10/05/21 14:15 14:15 14:20 WBC RBC Hgb Hct MCV MCH MCHC RDW Plt Count MPV Neut # (Auto) Lymph # (Auto) [place] # (Auto) Eos # (Auto) Baso # (Auto) Absolute Nucleated RBC Nucleated RBC % Sodium Potassium Chloride Carbon Dioxide Anion Gap BUN Creatinine Estimated GFR (MDRD) Glucose Lactic Acid 3.6 H* Calcium Total Bilirubin AST ALT Alkaline Phosphatase Ammonia Total Protein Albumin Globulin Albumin/Globulin Ratio Lipase TSH 0.39 Urine Color YELLOW Urine Clarity CLEAR Urine pH 6.0 Ur Specific [place] 1.025 Urine Protein 30 H Urine Glucose (UA) NEGATIVE Urine Ketones 40 H Urine Occult Blood SMALL H Urine Nitrite NEGATIVE Urine Bilirubin NEGATIVE Urine Urobilinogen 0.2 (NORMAL) Ur Leukocyte Esterase NEGATIVE Urine RBC 0-5 Urine WBC 0-3 Ur Squamous Epith Cells RARE Squamous Urine Bacteria None Seen Ur Microscopic Review INDICATED Urine Culture Comments NOT INDICATED Nasal Adenovirus (PCR) Nasal B. parapertussis DNA (PCR) Nasal Coronavir 229E PCR Nasal Coronavir HKU1 PCR Nasal Coronavir NL63 PCR Nasal Coronavir OC43 PCR Nasal Enterovir/Rhinovir PCR Nasal Influenza B PCR Nasal Influenza A PCR Nasal Parainfluen 1 PCR Nasal Parainfluen 2 PCR Nasal Parainfluen 3 PCR Nasal Parainfluen 4 PCR Nasal RSV (PCR) Nasal B.pertussis DNA PCR Nasal C.pneumoniae (PCR) Tarun Human Metapneumo PCR Nasal M.pneumoniae (PCR) Nasal SARS-CoV-2 (PCR) Salicylates Urine Opiates Screen NEGATIVE Ur Oxycodone Screen NEGATIVE Urine Methadone Screen NEGATIVE Ur Propoxyphene Screen NEGATIVE Acetaminophen Ur Barbiturates Screen NEGATIVE Ur Tricyclics Screen NEGATIVE Ur Phencyclidine Scrn NEGATIVE Ur Amphetamine Screen NEGATIVE U Methamphetamines Scrn NEGATIVE U Benzodiazepines Scrn POSITIVE H Urine Cocaine Screen NEGATIVE U Cannabinoids Screen NEGATIVE Ethyl Alcohol Serum Ketones 10/05/21 15:32 WBC RBC Hgb Hct MCV MCH MCHC RDW Plt Count MPV Neut # (Auto) Lymph # (Auto) [place] # (Auto) Eos # (Auto) Baso # (Auto) Absolute Nucleated RBC Nucleated RBC % Sodium Potassium Chloride Carbon Dioxide Anion Gap BUN Creatinine Estimated GFR (MDRD) Glucose Lactic Acid Calcium Total Bilirubin AST ALT Alkaline Phosphatase Ammonia 40.4 H Total Protein Albumin Globulin Albumin/Globulin Ratio Lipase TSH Urine Color Urine Clarity Urine pH Ur Specific [place] Urine Protein Urine Glucose (UA) Urine Ketones Urine Occult Blood Urine Nitrite Urine Bilirubin Urine Urobilinogen Ur Leukocyte Esterase Urine RBC Urine WBC Ur Squamous Epith Cells Urine Bacteria Ur Microscopic Review Urine Culture Comments Nasal Adenovirus (PCR) Nasal B. parapertussis DNA (PCR) Nasal Coronavir 229E PCR Nasal Coronavir HKU1 PCR Nasal Coronavir NL63 PCR Nasal Coronavir OC43 PCR Nasal Enterovir/Rhinovir PCR Nasal Influenza B PCR Nasal Influenza A PCR Nasal Parainfluen 1 PCR Nasal Parainfluen 2 PCR Nasal Parainfluen 3 PCR Nasal Parainfluen 4 PCR Nasal RSV (PCR) Nasal B.pertussis DNA PCR Nasal C.pneumoniae (PCR) Tarun Human Metapneumo PCR Nasal M.pneumoniae (PCR) Nasal SARS-CoV-2 (PCR) Salicylates Urine Opiates Screen Ur Oxycodone Screen Urine Methadone Screen Ur Propoxyphene Screen Acetaminophen Ur Barbiturates Screen Ur Tricyclics Screen Ur Phencyclidine Scrn Ur Amphetamine Screen U Methamphetamines Scrn U Benzodiazepines Scrn Urine Cocaine Screen U Cannabinoids Screen Ethyl Alcohol Serum Ketones - Rads (name of study) CT head Radiology: Final report received (acute sinusitis; no acute intracranial process) CXR Radiology: Final report received (No acute abnormality identified) PD MEDICAL DECISION MAKING - ED course Complexity details: reviewed results, re-evaluated patient, considered differential, d/w patient, d/w family ED course: 51-year-old male who has a history of heavy alcoholism is brought to the emergency department for acutely altered mental status. At the time of his presentation to the emergency department he had not drank for nearly 10 hours however his blood alcohol remained severely elevated at 291. He did present as a [place] Coma Scale of 9. He was lethargic but protecting his airway. CT of the head did not reveal any acute abnormalities. His labs are consistent with an alcoholic ketoacidosis. Mild ketones are present. While here in the emergency department we did replete him with 2 L of crystalloid as well as initiation of a banana bag. This gentleman unfortunately have is a history of heavy alcoholism. He has been seen by today's MELRE Mercer. The long-term plan for this gentleman will be to involuntarily detain him as gravely disabled once he is medically cleared. Patient will be admitted to our hospital for further evaluation and management of his alcoholic ketoacidosis and altered mental status. Given his somnolence and lethargy he may need an ICU bed. 1 is not available at this time thus the patient may remain here in the emergency department while awaiting an appropriate bed in ICU. I have spoken with Dr. Jean who is graciously agreed to admit this patient. Departure - Departure Disposition: ED Place in Observation Clinical Impression: Alcoholic ketoacidosis, Alcohol abuse, Hypokalemia, Lactic acidosis AMS (altered mental status) Qualifiers: Altered mental status type: coma Coma depth: [place] coma 9-12 Coma timing: at arrival to emergency department Qualified Code(s): R40.2422 - [place] coma scale score 9-12, at arrival to emergency department Condition: Poor
[2021-10-05 14:20] LABS: BASOPHILS % (AUTO) 0.5 %; EOSINOPHILS # (AUTO) 0.1 10^3/uL (0.0-0.7); HCT - HEMATOCRIT 39.2 % (42.0-52.0); HGB - HEMOGLOBIN 14.6 g/dL (14.0-18.0); LYMPHOCYTES # (AUTO) 1.5 10^3/uL (1.5-3.5); LYMPHOCYTES % (AUTO) 24.5 %; MEAN CORPUSCULAR HEMOGLOBIN 35.2 pg (27.0-31.0); MEAN CORPUSCULAR HGB CONC 37.2 g/dL (32.0-36.0); MEAN CORPUSCULAR VOLUME 94.5 fL (80.0-94.0); MONOCYTES # (AUTO) 0.3 10^3/uL (0.0-1.0); MONOCYTES % (AUTO) 5.1 %; NEUTROPHILS % (AUTO) 67.4 %; PLT - PLATELET COUNT 72 10^3/uL (130-450); RED BLOOD COUNT 4.15 10^6/uL (4.70-6.10); RED CELL DISTRIBUTION WIDTH 11.9 % (12.0-15.0); WHITE BLOOD COUNT 5.9 x10^3/uL (4.8-10.8)
[2021-10-05 14:36] LABS: KETONES, SERUM (ACETEST) SMALL (NEGATIVE)
[2021-10-05 14:46] LABS: MUDS CUTOFF CONCENTRATIONS CUTOFF CONC BELOW:
[2021-10-05 14:49] LABS: BILIRUBIN,URINE NEGATIVE (NEGATIVE); GLUCOSE, URINE (UA) NEGATIVE (NEGATIVE); KETONES,URINE (UA) 40 mg/dL (NEGATIVE); LEUKOCYTE ESTERASE, URINE NEGATIVE (NEGATIVE); NITRITE,URINE NEGATIVE (NEGATIVE); OCCULT BLOOD,URINE SMALL (NEGATIVE); PROTEIN,URINE 30 mg/dL (NEGATIVE); UROBILINOGEN,URINE 0.2 (NORMAL) E.U./dL (NORMAL)
[2021-10-05 14:50] LABS: ACETAMINOPHEN < 10 ug/mL (10-30); ALBUMIN 3.8 g/dL (3.2-5.5); ALBUMIN/GLOBULIN RATIO 1.7 (1.0-2.2); ALKALINE PHOSPHATASE 78 IU/L (42-121); ALT ALANINE AMINOTRANSFERASE 108 IU/L (10-60); AST ASPARTATE AMINOTRANSFERASE 293 IU/L (10-42); BILIRUBIN,TOTAL 1.5 mg/dL (0.2-1.0); BUN - BLOOD UREA NITROGEN 12 mg/dL (6-20); CALCIUM 7.8 mg/dL (8.5-10.3); CARBON DIOXIDE - CO2 25 mmol/L (21-32); CHLORIDE 89 mmol/L (101-111); CREATININE 0.8 mg/dL (0.6-1.2); ETOH - ETHANOL 291.2 mg/dL; GFR - MDRD 102 (>89); GLUCOSE 136 mg/dL (70-100); LIPASE 80 U/L (22-51); SALICYLATE < 6.0 mg/dL; SODIUM 133 mmol/L (135-145); TOTAL PROTEIN 6.1 g/dL (6.7-8.2)
[2021-10-05 14:52] LABS: POTASSIUM 2.5 mmol/L (3.5-5.0)
--- NOTE | 2021-10-05 14:52 | CT Report ---
PROCEDURE: HEAD WO INDICATIONS: AMS TECHNIQUE: Noncontrast 4.5 mm thick angled axial sections acquired from the foramen magnum to the vertex. For r adiation dose reduction, the following was used: automated exposure control, adjustment of mA and/or kV according to patient size. COMPARISON: 08/08/2021. FINDINGS: Image quality: Excellent. CSF spaces: Basal cisterns are patent. No extra-axial fluid collections. Ventricles are normal in size and shape. Brain: No midline shift. No intracranial masses or hemorrhage. Yuan-white matter interface is norm al. Skull and face: Calvarium and visualized facial bones are intact, without suspicious lesions. Sinuses: Small bilateral maxillary sinus air-fluid levels. Patchy bilateral ethmoid opacification. IMPRESSION: 1. Acute sinusitis, with small air-fluid levels in the maxillary sinuses and patchy bilateral ethmoid opacification. 2. No evidence acute stroke, hemorrhage, or mass. Reviewed by: Chriss Colvin MD on 10/05/2021 2:51 PM PST Approved by: Chriss Colvin MD on 10/05/2021 2:51 PM PST Station ID: [id number]
[2021-10-05] MEDS ORDERED: POTASSIUM CHLOR 10 MEQ/100 ML 10 MEQ/100 ML BAG IV STA ×2 (14:56→15:01)
[2021-10-05 15:03] LABS: BARBITURATE SCREEN,UR NEGATIVE (NEGATIVE); CLARITY,URINE CLEAR (CLEAR); METHADONE SCREEN, URINE NEGATIVE (NEGATIVE); OXYCODONE SCREEN, URINE NEGATIVE (NEGATIVE); PROPOXYPHENE SCREEN, URINE NEGATIVE (NEGATIVE); TRICYCLIC ANTIDEPRESSANT,URINE NEGATIVE (NEGATIVE)
[2021-10-05 15:04] LABS: AMPHETAMINE SCREEN,URINE NEGATIVE (NEGATIVE); BACTERIA,URINE None Seen /HPF (None Seen); BENZODIAZEPINES SCREEN, URINE POSITIVE (NEGATIVE); COCAINE SCREEN URINE NEGATIVE (NEGATIVE); METHAMPHETAMINES SCREEN, URINE NEGATIVE (NEGATIVE); OPIATE SCREEN, URINE NEGATIVE (NEGATIVE); RBC,URINE 0-5 /HPF (0-5); SQUAMOUS EPITHELIAL CELL,UR RARE Squamous (<= Few); THC CANNABINOID SCREEN, URINE NEGATIVE (NEGATIVE); WBC,URINE 0-3 /HPF (0-3)
[2021-10-05] MEDS ORDERED: THIAMINE INJ 100 MG, MAGNESIUM SULFATE 2 GM, MULTIVITAMIN 10 ML, FOLIC ACID INJ 1 MG in... IV ONE ×5 (15:05)
[2021-10-05] MEDS ORDERED: THIAMINE 100 MG/1 ML 2 ML MDV ONE (15:23)
--- NOTE | 2021-10-05 15:34 | XRAY Report ---
PROCEDURE: Chest 1 View X-Ray INDICATIONS: chest pain TECHNIQUE: One view of the chest was acquired. COMPARISON: 10/08/2020, 07/20/2021 FINDINGS: Surgical changes and devices: None. Lungs and pleura: An incomplete inspiratory result is noted, with low lung volumes and crowding of t he vascular markings. No focal infiltrates are seen. No large pneumothorax or large pleural effusion can be seen. Mediastinum: Mediastinal contours appear normal. Heart size is normal. Bones and chest wall: No suspicious bony lesions. Age-appropriate degenerative changes are seen. Mi ld levoconvex scoliotic curvature is seen. Overlying soft tissues appear unremarkable. IMPRESSION: Limited portable chest examination, without an acute abnormality identified. Please consider a short-term follow-up 2 view chest series (performed in deep inspiration) for furthe r evaluation. Reviewed by: Oswaldo Cope MD on 10/05/2021 2:33 PM [facility] Approved by: Oswaldo Cope MD on 10/05/2021 2:33 PM [facility] Station ID: [id number]
[2021-10-05 16:06] LABS: B. PARAPERTUSSIS- RESP PCR PAN NOT DETECTED; B. PERTUSSIS- RESP PCR PANEL NOT DETECTED; C. PNEUMONIAE- RESP PCR PANEL NOT DETECTED; CORONAVIRUS 229E-RESP PCR NOT DETECTED; CORONAVIRUS HKU1-RESP PCR NOT DETECTED; CORONAVIRUS NL63-RESP PCR NOT DETECTED; CORONAVIRUS OC43-RESP PCR NOT DETECTED; HUMAN METAPNEUMOVIRUS NOT DETECTED; INFLUENZA A- RESP PCR PANEL NOT DETECTED; INFLUENZA B - RESP PCR PANEL NOT DETECTED; PARAINFLUENZA VIRUS 1 NOT DETECTED; PARAINFLUENZA VIRUS 2 NOT DETECTED; PARAINFLUENZA VIRUS 3 NOT DETECTED; PARAINFLUENZA VIRUS 4 NOT DETECTED; RHINOVIRUS/ENTEROVIRUS NOT DETECTED; RSV- RESP PCR PANEL NOT DETECTED; SARS-CoV-2 -RESP PCR PANEL NOT DETECTED
[2021-10-05 16:07] LABS: M. PNEUMONIAE- RESP PCR PANEL NOT DETECTED
--- NOTE | 2021-10-05 16:41 | HISTORY & PHYSICAL EXAMINATION ---
Chief Complaint - Chief Complaint Chief Complaint: confused, somnolent and alcoholic intoxication History of Present Illness - Admitted From Admitted From:: ER - History Obtained From Records Reviewed: [facility] History obtained from: ER note and [employer], and pt's ex- Exam Limitations: pt's confusion - History of Present Illness HPI Comment/Other: This is a 51-year-old male with a past medical history significant for heavy alcohol abuse, chronic tinnitus, depression and anxiety, who is brought to the emergency department for acutely alcoholic intoxication and altered mental status. pt's serum alcohol level is close to 300. pt was brought to ER 5 days with alcoholic intoxication. Pt is alert, not on somnolent but very confused. he tried to pull his IV line at ER bed. he could not provide medical history. pt's ex- is at the bedside to help provide medical history. she report pt's last alcohol drinking is about 10 hours with 2 once of vodka. Pt continue to have nausea or vomiting for several days, no hematemesis reported. She report pt is living with her but his room is covered in feces and urine. pt had a hospitalization in late July of 2020 for alcohol withdrawal, nausea, vomiting, and alcoholic ketoacidosis and severe hyponatremia. Per pt's ex- report pt has been suicide ideation for couple of months as well. per ER provider, DCR would be involuntarily detain him for gravely disabled if pt could be medical clear. Pt's CT of head reveals No evidence of acute stroke, hemorrhage or mass, With acute sinusitis. Chest x-ray reveals without Acute abnormality identified. Route lab test significantly reveal potassium 2.5, lactic acid 3.6, elevated liver enzyme, ammonia 40, small ketones, glucose 136. In ER, patient is afebrile, initially pt present slight tachycardia, room air at 96%, then pt has 98% on 4 liter of O2 Discussed the care goal with pt's ex-, she would like to keep on Full code now. after she discussed with her son, then she might change his code status for pt. 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 from ex- approx 1 year ago. Was involved in another relationship following divorce and got involved with drug addiction and some legal issues. Has 1 biological daughter who is 16 years old and a 23 year old step son who is in line to take over the [employer] business. - POLST Patient has POLST: No POLST Status: Full Code Meds/Allgy - Home Medications Home Medications: Ambulatory Orders Medication Instructions Recorded Confirmed Omeprazole 1 cap PO DAILY 01/25/21 08/08/21 traMADol [Ultram] 2 tab PO DAILY 01/25/21 08/08/21 buPROPion [Wellbutrin Sr] 150 mg PO BID #40 tablet 01/26/21 08/08/21 Alprazolam [Xanax] 1 tablet PO DAILY 06/27/21 08/08/21 Meclizine HCl [Motion Sickness] 25 mg PO Q8H PRN #40 tablet 06/27/21 08/08/21 Ondansetron Odt [Zofran Odt] 4 mg TL Q6H PRN #20 tablet 06/27/21 08/08/21 Sumatriptan [Imitrex] 20 mg NS DAILY PRN #5 bottle 06/28/21 08/08/21 Lactulose 15 ml PO Q6H #240 ml 07/20/21 08/08/21 Thiamine [Vitamin B-1] 100 mg PO DAILY #30 tablet 08/12/21 chlordiazePOXIDE [Librium] 25 mg PO HS #2 cap 08/12/21 - Allergies Allergies/Adverse Reactions: Allergies Allergy/AdvReac Type Severity Reaction Status Date / Time No Known Drug Allergies Allergy Verified 10/05/21 14:03 Review of Systems - All Other Systems All Other Systems: reports: Other (pt confused, he could not provide ROS) Exam - Vital Signs Vital Signs: Vital Signs x48h Temp Pulse Resp BP Pulse Ox 10/05/21 16:00 97 20 111/71 100 10/05/21 15:36 97 20 114/71 99 10/05/21 14:36 95 22 108/69 99 10/05/21 14:06 98 14 108/69 98 10/05/21 14:03 36.1 C L 109 H 21 108/80 96 - Physical Exam General Appearance: positive: Alert, Mild distress. negative: Lethargic Eyes Bilateral: positive: Normal inspection, No lid inflammation ENT: positive: ENT inspection nml, No signs of dehydration. negative: Purulent nasal drainage Neck: positive: Nml inspection, Trachea midline. negative: Tracheal deviation Respiratory: positive: Chest non-tender, No respiratory distress. negative: Wheezes Cardiovascular: positive: Regular rate & rhythm, No murmur, Tachycardia. negative: Bradycardia, Systolic murmur, Diastolic murmur Peripheral Pulses: positive: 2+ Abdomen: positive: Non-tender, Nml bowel sounds, No distention Back: positive: Nml inspection Skin: positive: Warm, Dry Extremities: positive: Non-tender, Nml appearance Neurologic/Psychiatric: negative: Sensory loss, Facial droop Conclusion/Plan - Problem List (1) AMS (altered mental status) Conclusion/Plan: it is likely caused by his Alcoholic intoxication, his alcohol level is close to 300. CT of head reveal no acute process. pt has slight elevated ammonia level. Neuro check for pt, IVF, add lactulose, and tele monitor, continue close vital and lab monitor Qualifiers: Altered mental status type: coma Coma depth: [place] coma 9-12 Coma timing: at arrival to emergency department Qualified Code(s): R40.2422 - [place] coma scale score 9-12, at arrival to emergency department (2) Alcohol intoxication Conclusion/Plan: this is pt's pt medical problem for over 5 yrs per pt's ex- report. DCR is involved, and family welfare social work professor is consulted. continue D5 1/2 NS with k, bannan bag with IV of vitamin B1, CIWA protocol. because pt has mild respiratory distress, he had somnolent before although now he is alert. Reduce to 1mg Ativan per Q1H PRN for alcohol withdrawal. we may adjust as pt's need. (3) Hypoxia Conclusion/Plan: pt need 4 liter of O2 and have 98% O2 sat, Patient does not present acute Respiratory distress. CXR reveal no acute Abnormality. It is likely from patient's alcohol intoxication and somnolent. ABGs reveals normal PH, fair respiratory status. Cause usage of sedation medication, Continue oxygen supplement as needed and air sampling and monitoring (4) Alcoholic ketoacidosis Conclusion/Plan: Serum reveal small ketones, It is likely from patient alcohol intoxication and nausea and vomiting. IV of D5 1/2 NS with K, Continue banana bag, Continue laboratory monitoring, Continue glucose check (5) Hypokalemia Conclusion/Plan: Potassium 2.5, it is likely caused by nausea and vomiting, and poor oral intake. replace and lab monitor. pt's Magnesium and phosphorus is at a normal range. (6) Elevated lactic acid level Conclusion/Plan: likely caused by patient's alcohol intoxication. ABGs show normal PH. IV fluids and clinical laboratory science professor (7) Suicidal ideations Conclusion/Plan: Patient's ex- reported patient had suicidal ideation, add 1:1 observation, Consulted with social work (8) Elevated liver enzymes Conclusion/Plan: Patient had a elevated liver enzyme, likely caused by Acute alcohol intoxication. continue IVF, and lab monitor (9) Gravely disabled Conclusion/Plan: pt's ex- report pt is living with her but his room is covered in feces and urine. DCR is involved the care for pt. family welfare social work professor is consulted. DCR would be involuntarily detain him for gravely disabled if pt could be medical clear (10) Acute sinusitis Conclusion/Plan: Patient's report pt had "bad" sinus infection, hope to be treated. CT of head reveal acute sinusitis. add Rocephin IV for pt now. - Lab Results Fish Bones: 10/05/21 14:15 10/05/21 14:15 Core Measures - Anticipated LOS I expect patient to be DC'd or transferred within 96 hours.: Yes - DVT/VTE - Prophylaxis VTE/DVT Device ordered at admit?: Yes - Stroke - Rehab Assessment Rehab services assessment to be ordered?: Yes
[2021-10-05 16:53] LABS: PHOSPHORUS 2.5 mg/dL (2.5-4.6)
[2021-10-05] MEDS: ONDANSETRON 4 MG/2 ML VIAL IVP PRN (17:03)
[2021-10-05] MEDS ORDERED: LORazepam 2 MG/ML VIAL IVP PRN ×2 (17:07→17:41)
[2021-10-05] MEDS ORDERED: THIAMINE INJ 100 MG in SODIUM CHLORIDE 0.9% 50 ML IV STA (17:24)
[2021-10-05] MEDS: D5.45NS W/20 MEQ KCL 1,000 ML IV SCH (17:46)
[2021-10-05] MEDS: POTASSIUM CHLOR 10 MEQ/100 ML 10 MEQ/100 ML BAG IV SCH ×7 (17:55→23:48)
[2021-10-05 18:00] LABS: ABG PCO2 38 mmHg (34-45); ABG PH 7.43 (7.35-7.45); ABG PO2 72 mmHg (80-100)
[2021-10-05] MEDS ORDERED: AMOXICILLIN 250 MG CAPSULE PO SCH (18:00)
[2021-10-05 18:01] LABS: ABG BASE EXCESS 0.7 mmol/L (-2.0-3.0); ABG HCO3 24.8 mmol/L (22.0-26.0); ABG OXYGEN SATURATION 92 % (94-98); ALLEN TEST POSITIVE
[2021-10-05 18:09] LABS: INR 1.1 (0.8-1.2)
[2021-10-05] MEDS: SODIUM CHLORIDE FLUSH 0.9% 10 ML SYRINGE IVP SCH (18:12)
[2021-10-05] MEDS: LORazepam 2 MG/ML VIAL IVP PRN ×3 (20:17→22:56)
[2021-10-05] MEDS: chlordiazePOXIDE 25 MG CAPSULE PO SCH (20:26)
[2021-10-05] MEDS ORDERED: chlordiazePOXIDE 25 MG CAPSULE PO ONE (20:29)
[2021-10-05 21:30] LABS: CALCIUM 7.5 mg/dL (8.5-10.3); CREATININE 0.7 mg/dL (0.6-1.2); POTASSIUM 3.1 mmol/L (3.5-5.0)
[2021-10-06] MEDS: chlordiazePOXIDE 25 MG CAPSULE PO SCH ×5 (00:08→23:59)
[2021-10-06] MEDS: LORazepam 2 MG/ML VIAL IVP PRN ×8 (00:39→21:34)
[2021-10-06] MEDS: POTASSIUM CHLOR 10 MEQ/100 ML 10 MEQ/100 ML BAG IV SCH (00:50)
[2021-10-06] MEDS: SODIUM CHLORIDE FLUSH 0.9% 10 ML SYRINGE IVP SCH ×3 (00:59→16:58)
[2021-10-06] MEDS: D5.45NS W/20 MEQ KCL 1,000 ML IV SCH ×3 (03:11→23:59)
[2021-10-06 05:45] LABS: BASOPHILS % (AUTO) 0.6 %; EOSINOPHILS % (AUTO) 0.2 %; HCT - HEMATOCRIT 34.7 % (42.0-52.0); HGB - HEMOGLOBIN 12.4 g/dL (14.0-18.0); LYMPHOCYTES # (AUTO) 0.8 10^3/uL (1.5-3.5); LYMPHOCYTES % (AUTO) 16.2 %; MEAN CORPUSCULAR HEMOGLOBIN 34.3 pg (27.0-31.0); MEAN CORPUSCULAR HGB CONC 35.7 g/dL (32.0-36.0); MEAN CORPUSCULAR VOLUME 95.9 fL (80.0-94.0); MEAN PLATELET VOLUME 9.7 fL (7.4-11.4); MONOCYTES # (AUTO) 0.3 10^3/uL (0.0-1.0); MONOCYTES % (AUTO) 5.4 %; NEUTROPHILS # (AUTO) 3.7 10^3/uL (1.5-6.6); NEUTROPHILS % (AUTO) 77.2 %; PLT - PLATELET COUNT 43 10^3/uL (130-450); RED BLOOD COUNT 3.62 10^6/uL (4.70-6.10); RED CELL DISTRIBUTION WIDTH 12.1 % (12.0-15.0); WHITE BLOOD COUNT 4.8 x10^3/uL (4.8-10.8)
[2021-10-06 05:51] LABS: ALBUMIN 3.3 g/dL (3.2-5.5); ALBUMIN/GLOBULIN RATIO 1.6 (1.0-2.2); BILIRUBIN,TOTAL 2.4 mg/dL (0.2-1.0); CALCIUM 7.7 mg/dL (8.5-10.3); CREATININE 0.6 mg/dL (0.6-1.2); POTASSIUM 3.4 mmol/L (3.5-5.0); TOTAL PROTEIN 5.4 g/dL (6.7-8.2)
[2021-10-06] MEDS ORDERED: PANTOPRAZOLE 40 MG VIAL IVP SCH (07:00)
[2021-10-06] MEDS ORDERED: cefTRIAXone 1 GM in SODIUM CHLORIDE 0.9% MINIBAG 100 ML IV SCH (09:00)
[2021-10-06] MEDS ORDERED: ENOXAPARIN 40 MG/0.4 ML SYRINGE SUBQ SCH (09:00)
[2021-10-06] MEDS ORDERED: MULTIVITAMIN 10 ML, THIAMINE INJ 100 MG, FOLIC ACID INJ 1 MG in SODIUM CHLORIDE 0.9% 1,... IV SCH (09:00)
--- NOTE | 2021-10-06 09:29 | PHARMACY PROGRESS NOTE ---
- Best Possible Medication History Admit Date and Time: 10/05/21 1619 Processed by: Pharmacy Medication History completed: Yes Patient Interview: Completed Secondary Source(s): Physician records, Pharmacy records, Insurance records As the person ultimately responsible for medication therapy, providers are able to order a medication from an existing home medication list in [facility] via the "Reconcile Routine" prior to Confirmation of that medication by customer support associate. Such practice is discouraged except when the physician, in their clinical judgment, deems that a medical need exists for a medication without regard to previous use.
[2021-10-06] MEDS: LACTULOSE 10 GM /15 ML UDC PO SCH (09:59)
--- NOTE | 2021-10-06 10:36 | PROVIDER PROGRESS NOTE ---
Subjective - Prog Note Date Prog Note Date: 10/06/21 - Subjective Subjective: He admits to alcohol use. He denies any suicidal ideations. He denies any pain or focal weaknesses. Current Medications - Current Medications Current Medications: Active Medications Acetaminophen (Acetaminophen 325 Mg Tablet) 650 mg PO Q4HR PRN PRN Reason: Pain 1 to 4 Chlordiazepoxide HCl (Chlordiazepoxide 25 Mg Capsule) 25 mg PO Q6HR [facility] Last Admin: 10/06/21 06:52 Dose: 25 mg Potassium Chloride/Dextrose/Sod Cl (D5.45ns W/20 Meq Kcl) 1,000 mls @ 100 mls/hr IV .Q10H [facility] Last Admin: 10/06/21 03:11 Dose: 100 mls/hr Multivitamins 10 ml/ Thiamine HCl 100 mg/ Folic Acid 1 mg/Sodium Chloride 1, 011.2 mls @ 100 mls/hr IV DAILY [facility] Stop: 10/06/21 20:00 Last Admin: 10/06/21 09:59 Dose: 100 mls/hr Ceftriaxone Sodium 1 gm/ (Sodium Chloride) 100 mls @ 200 mls/hr IV DAILY [facility] Last Admin: 10/06/21 09:59 Dose: 200 mls/hr Lactulose (Lactulose 10 Gm /15 Ml Udc) 10 gm PO DAILY [facility] Last Admin: 10/06/21 09:59 Dose: 10 gm Lorazepam (Lorazepam 2 Mg/Ml Vial) 2 mg IVP Q1H PRN; Protocol PRN Reason: CIWA >8 Last Admin: 10/06/21 06:48 Dose: 2 mg Ondansetron HCl (Ondansetron 4 Mg/2 Ml Vial) 4 mg IVP Q6HR PRN PRN Reason: Nausea / Vomiting Last Admin: 10/05/21 17:03 Dose: 4 mg Pantoprazole Sodium (Pantoprazole 40 Mg Tablet) 40 mg PO QDAC [facility] Multivit/Folic Acid/Iron ( Vitamin Tablet) 1 tab PO DAILYWM [facility] Sodium Chloride (Sodium Chloride Flush 0.9% 10 Ml Syringe) 10 ml IVP PRN PRN PRN Reason: NEEDED PER PROVIDER ORDERS Sodium Chloride (Sodium Chloride Flush 0.9% 10 Ml Syringe) 10 ml IVP 0100,0900,1700 [facility] Last Admin: 10/06/21 10:00 Dose: 10 ml Thiamine HCl (Thiamine 100 Mg Tablet) 100 mg PO DAILY [facility] traMADol [Ultram] 50 mg PO Q6H PRN 01/25/21 Alprazolam [Xanax] 0.25 mg PO QPM PRN 10/06/21 Omeprazole Magnesium 20 mg PO DAILY 10/06/21 Objective - Vital Signs/Intake & Output Reviewed Vital Signs: Yes Vital Signs: Vital Signs x48h Temp Pulse Resp BP Pulse Ox 10/06/21 08:38 37.2 C 101 H 20 121/73 90 L 10/06/21 04:10 105/57 L 10/06/21 04:07 36.8 C 102 H 26 H 105/57 L 92 Intake & Output: Intake & Output 10/03/21 10/04/21 10/05/21 10/06/21 23:59 23:59 23:59 23:59 Intake Total 3331.000 2606.867 Output Total 450 1950 Balance 2881.000 656.867 - Objective General Appearance: positive: Lethargic, Other (He is lethargic but does wake up when spoken to. He is slow to respond to questions.) Eyes Bilateral: positive: Conjunctivae nml ENT: positive: ENT inspection nml, Other (No maxillary tenderness) Neck: positive: Nml inspection Respiratory: positive: No respiratory distress. negative: Wheezes, Rales Cardiovascular: positive: Regular rate & rhythm. negative: Tachycardia Abdomen: positive: Non-tender. negative: No distention, Tenderness Skin: positive: Warm, Dry Extremities: positive: No pedal edema Neurologic/Psychiatric: positive: Other (His motor strength is 5 out of 5 in all 4 extremities. He is tremulous.). negative: Disoriented to person, Disoriented to place, Disoriented to time, Facial droop, Slurred/abnml speech - Lab Results Fish Bones: 10/06/21 04:45 10/06/21 04:45 Other Labs: Lab Results x24hrs 10/06/21 10/06/21 10/06/21 Range/Units 08:24 04:45 04:45 WBC (4.8-10.8) x10^3/uL RBC (4.70-6.10) 10^6/uL Hgb (14.0-18.0) g/dL Hct (42.0-52.0) % MCV (80.0-94.0) fL MCH (27.0-31.0) pg MCHC (32.0-36.0) g/dL RDW (12.0-15.0) % Plt Count (130-450) 10^3/uL MPV (7.4-11.4) fL Neut # (Auto) (1.5-6.6) 10^3/uL Lymph # (Auto) (1.5-3.5) 10^3/uL Smith # (Auto) (0.0-1.0) 10^3/uL Eos # (Auto) (0.0-0.7) 10^3/uL Baso # (Auto) (0.0-0.1) 10^3/uL Absolute Nucleated RBC x10^3/uL Nucleated RBC % /100WBC PT (9.9-12.6) secs INR (0.8-1.2) Bld Gas Analysis Time Sample Site ABG pH (7.35-7.45) ABG pCO2 (34-45) mmHg ABG pO2 (80-100) mmHg ABG HCO3 (22.0-26.0) mmol/L ABG Total CO2 (21.0-29.0) MMOL/L ABG O2 Saturation (94-98) % ABG Base Excess (-2.0-3.0) mmol/L Wilberto Test Room Air Sodium 130 L (135-145) mmol/L Potassium 3.4 L (3.5-5.0) mmol/L Chloride 94 L (101-111) mmol/L Carbon Dioxide 24 (21-32) mmol/L Anion Gap 12.0 (6-13) BUN 6 (6-20) mg/dL Creatinine 0.6 (0.6-1.2) mg/dL Estimated GFR (MDRD) 143 (>89) Glucose 121 H (70-100) mg/dL Lactic Acid 1.0 (0.5-2.2) mmol/L Calcium 7.7 L (8.5-10.3) mg/dL Phosphorus (2.5-4.6) mg/dL Magnesium (1.7-2.8) mg/dL Total Bilirubin 2.4 H (0.2-1.0) mg/dL AST 235 H (10-42) IU/L ALT 92 H (10-60) IU/L Alkaline Phosphatase 72 (42-121) IU/L Ammonia 30.2 (7-35) umol/L Total Protein 5.4 L (6.7-8.2) g/dL Albumin 3.3 (3.2-5.5) g/dL Globulin 2.1 (2.1-4.2) g/dL Albumin/Globulin Ratio 1.6 (1.0-2.2) Lipase (22-51) U/L TSH (0.34-5.60) uIU/mL Urine Color Urine Clarity (CLEAR) Urine pH (5.0-7.5) PH Ur Specific [place] (1.002-1.030) Urine Protein (NEGATIVE) mg/dL Urine Glucose (UA) (NEGATIVE) mg/dL Urine Ketones (NEGATIVE) mg/dL Urine Occult Blood (NEGATIVE) Urine Nitrite (NEGATIVE) Urine Bilirubin (NEGATIVE) Urine Urobilinogen (NORMAL) E.U./dL Ur Leukocyte Esterase (NEGATIVE) Urine RBC (0-5) /HPF Urine WBC (0-3) /HPF Ur Squamous Epith Cells (<= Few) Urine Bacteria (None Seen) /HPF Ur Microscopic Review Urine Culture Comments Nasal Adenovirus (PCR) Nasal B. parapertussis DNA (PCR) Nasal Coronavir 229E PCR Nasal Coronavir HKU1 PCR Nasal Coronavir NL63 PCR Nasal Coronavir OC43 PCR Nasal Enterovir/Rhinovir PCR Nasal Influenza B PCR Nasal Influenza A PCR Nasal Parainfluen 1 PCR Nasal Parainfluen 2 PCR Nasal Parainfluen 3 PCR Nasal Parainfluen 4 PCR Nasal RSV (PCR) Nasal B.pertussis DNA PCR Nasal C.pneumoniae (PCR) [place] Human Metapneumo PCR Nasal M.pneumoniae (PCR) Nasal SARS-CoV-2 (PCR) Salicylates mg/dL Urine Opiates Screen (NEGATIVE) Ur Oxycodone Screen (NEGATIVE) Urine Methadone Screen (NEGATIVE) Ur Propoxyphene Screen (NEGATIVE) Acetaminophen (10-30) ug/mL Ur Barbiturates Screen (NEGATIVE) Ur Tricyclics Screen (NEGATIVE) Ur Phencyclidine Scrn (NEGATIVE) Ur Amphetamine Screen (NEGATIVE) U Methamphetamines Scrn (NEGATIVE) U Benzodiazepines Scrn (NEGATIVE) Urine Cocaine Screen (NEGATIVE) U Cannabinoids Screen (NEGATIVE) Ethyl Alcohol mg/dL Serum Ketones (NEGATIVE) 10/06/21 10/05/21 10/05/21 Range/Units 04:45 21:18 21:18 WBC 4.8 (4.8-10.8) x10^3/uL RBC 3.62 L (4.70-6.10) 10^6/uL Hgb 12.4 L (14.0-18.0) g/dL Hct 34.7 L (42.0-52.0) % MCV 95.9 H (80.0-94.0) fL MCH 34.3 H (27.0-31.0) pg MCHC 35.7 (32.0-36.0) g/dL RDW 12.1 (12.0-15.0) % Plt Count 43 L (130-450) 10^3/uL MPV 9.7 (7.4-11.4) fL Neut # (Auto) 3.7 (1.5-6.6) 10^3/uL Lymph # (Auto) 0.8 L (1.5-3.5) 10^3/uL Smith # (Auto) 0.3 (0.0-1.0) 10^3/uL Eos # (Auto) 0.0 (0.0-0.7) 10^3/uL Baso # (Auto) 0.0 (0.0-0.1) 10^3/uL Absolute Nucleated RBC 0.00 x10^3/uL Nucleated RBC % 0.0 /100WBC PT (9.9-12.6) secs INR (0.8-1.2) Bld Gas Analysis Time Sample Site ABG pH (7.35-7.45) ABG pCO2 (34-45) mmHg ABG pO2 (80-100) mmHg ABG HCO3 (22.0-26.0) mmol/L ABG Total CO2 (21.0-29.0) MMOL/L ABG O2 Saturation (94-98) % ABG Base Excess (-2.0-3.0) mmol/L Wilberto Test Room Air Sodium 131 L (135-145) mmol/L Potassium 3.1 L (3.5-5.0) mmol/L Chloride 94 L (101-111) mmol/L Carbon Dioxide 23 (21-32) mmol/L Anion Gap 14.0 H (6-13) BUN 10 (6-20) mg/dL Creatinine 0.7 (0.6-1.2) mg/dL Estimated GFR (MDRD) 119 (>89) Glucose 124 H (70-100) mg/dL Lactic Acid 2.9 H (0.5-2.2) mmol/L Calcium 7.5 L (8.5-10.3) mg/dL Phosphorus (2.5-4.6) mg/dL Magnesium (1.7-2.8) mg/dL Total Bilirubin (0.2-1.0) mg/dL AST (10-42) IU/L ALT (10-60) IU/L Alkaline Phosphatase (42-121) IU/L Ammonia (7-35) umol/L Total Protein (6.7-8.2) g/dL Albumin (3.2-5.5) g/dL Globulin (2.1-4.2) g/dL Albumin/Globulin Ratio (1.0-2.2) Lipase (22-51) U/L TSH (0.34-5.60) uIU/mL Urine Color Urine Clarity (CLEAR) Urine pH (5.0-7.5) PH Ur Specific [place] (1.002-1.030) Urine Protein (NEGATIVE) mg/dL Urine Glucose (UA) (NEGATIVE) mg/dL Urine Ketones (NEGATIVE) mg/dL Urine Occult Blood (NEGATIVE) Urine Nitrite (NEGATIVE) Urine Bilirubin (NEGATIVE) Urine Urobilinogen (NORMAL) E.U./dL Ur Leukocyte Esterase (NEGATIVE) Urine RBC (0-5) /HPF Urine WBC (0-3) /HPF Ur Squamous Epith Cells (<= Few) Urine Bacteria (None Seen) /HPF Ur Microscopic Review Urine Culture Comments Nasal Adenovirus (PCR) Nasal B. parapertussis DNA (PCR) Nasal Coronavir 229E PCR Nasal Coronavir HKU1 PCR Nasal Coronavir NL63 PCR Nasal Coronavir OC43 PCR Nasal Enterovir/Rhinovir PCR Nasal Influenza B PCR Nasal Influenza A PCR Nasal Parainfluen 1 PCR Nasal Parainfluen 2 PCR Nasal Parainfluen 3 PCR Nasal Parainfluen 4 PCR Nasal RSV (PCR) Nasal B.pertussis DNA PCR Nasal C.pneumoniae (PCR) [place] Human Metapneumo PCR Nasal M.pneumoniae (PCR) Nasal SARS-CoV-2 (PCR) Salicylates mg/dL Urine Opiates Screen (NEGATIVE) Ur Oxycodone Screen (NEGATIVE) Urine Methadone Screen (NEGATIVE) Ur Propoxyphene Screen (NEGATIVE) Acetaminophen (10-30) ug/mL Ur Barbiturates Screen (NEGATIVE) Ur Tricyclics Screen (NEGATIVE) Ur Phencyclidine Scrn (NEGATIVE) Ur Amphetamine Screen (NEGATIVE) U Methamphetamines Scrn (NEGATIVE) U Benzodiazepines Scrn (NEGATIVE) Urine Cocaine Screen (NEGATIVE) U Cannabinoids Screen (NEGATIVE) Ethyl Alcohol mg/dL Serum Ketones (NEGATIVE) 10/05/21 10/05/21 10/05/21 Range/Units 17:56 17:56 17:40 WBC (4.8-10.8) x10^3/uL RBC (4.70-6.10) 10^6/uL Hgb (14.0-18.0) g/dL Hct (42.0-52.0) % MCV (80.0-94.0) fL MCH (27.0-31.0) pg MCHC (32.0-36.0) g/dL RDW (12.0-15.0) % Plt Count (130-450) 10^3/uL MPV (7.4-11.4) fL Neut # (Auto) (1.5-6.6) 10^3/uL Lymph # (Auto) (1.5-3.5) 10^3/uL Smith # (Auto) (0.0-1.0) 10^3/uL Eos # (Auto) (0.0-0.7) 10^3/uL Baso # (Auto) (0.0-0.1) 10^3/uL Absolute Nucleated RBC x10^3/uL Nucleated RBC % /100WBC PT 12.0 (9.9-12.6) secs INR 1.1 (0.8-1.2) Bld Gas Analysis Time 1749 Sample Site LEFT RADIAL ABG pH 7.43 (7.35-7.45) ABG pCO2 38 (34-45) mmHg ABG pO2 72 L (80-100) mmHg ABG HCO3 24.8 (22.0-26.0) mmol/L ABG Total CO2 26.0 (21.0-29.0) MMOL/L ABG O2 Saturation 92 L (94-98) % ABG Base Excess 0.7 (-2.0-3.0) mmol/L Wilberto Test POSITIVE Room Air YES Sodium (135-145) mmol/L Potassium (3.5-5.0) mmol/L Chloride (101-111) mmol/L Carbon Dioxide (21-32) mmol/L Anion Gap (6-13) BUN (6-20) mg/dL Creatinine (0.6-1.2) mg/dL Estimated GFR (MDRD) (>89) Glucose (70-100) mg/dL Lactic Acid 2.9 H (0.5-2.2) mmol/L Calcium (8.5-10.3) mg/dL Phosphorus (2.5-4.6) mg/dL Magnesium (1.7-2.8) mg/dL Total Bilirubin (0.2-1.0) mg/dL AST (10-42) IU/L ALT (10-60) IU/L Alkaline Phosphatase (42-121) IU/L Ammonia (7-35) umol/L Total Protein (6.7-8.2) g/dL Albumin (3.2-5.5) g/dL Globulin (2.1-4.2) g/dL Albumin/Globulin Ratio (1.0-2.2) Lipase (22-51) U/L TSH (0.34-5.60) uIU/mL Urine Color Urine Clarity (CLEAR) Urine pH (5.0-7.5) PH Ur Specific [place] (1.002-1.030) Urine Protein (NEGATIVE) mg/dL Urine Glucose (UA) (NEGATIVE) mg/dL Urine Ketones (NEGATIVE) mg/dL Urine Occult Blood (NEGATIVE) Urine Nitrite (NEGATIVE) Urine Bilirubin (NEGATIVE) Urine Urobilinogen (NORMAL) E.U./dL Ur Leukocyte Esterase (NEGATIVE) Urine RBC (0-5) /HPF Urine WBC (0-3) /HPF Ur Squamous Epith Cells (<= Few) Urine Bacteria (None Seen) /HPF Ur Microscopic Review Urine Culture Comments Nasal Adenovirus (PCR) Nasal B. parapertussis DNA (PCR) Nasal Coronavir 229E PCR Nasal Coronavir HKU1 PCR Nasal Coronavir NL63 PCR Nasal Coronavir OC43 PCR Nasal Enterovir/Rhinovir PCR Nasal Influenza B PCR Nasal Influenza A PCR Nasal Parainfluen 1 PCR Nasal Parainfluen 2 PCR Nasal Parainfluen 3 PCR Nasal Parainfluen 4 PCR Nasal RSV (PCR) Nasal B.pertussis DNA PCR Nasal C.pneumoniae (PCR) [place] Human Metapneumo PCR Nasal M.pneumoniae (PCR) Nasal SARS-CoV-2 (PCR) Salicylates mg/dL Urine Opiates Screen (NEGATIVE) Ur Oxycodone Screen (NEGATIVE) Urine Methadone Screen (NEGATIVE) Ur Propoxyphene Screen (NEGATIVE) Acetaminophen (10-30) ug/mL Ur Barbiturates Screen (NEGATIVE) Ur Tricyclics Screen (NEGATIVE) Ur Phencyclidine Scrn (NEGATIVE) Ur Amphetamine Screen (NEGATIVE) U Methamphetamines Scrn (NEGATIVE) U Benzodiazepines Scrn (NEGATIVE) Urine Cocaine Screen (NEGATIVE) U Cannabinoids Screen (NEGATIVE) Ethyl Alcohol mg/dL Serum Ketones (NEGATIVE) 10/05/21 10/05/21 10/05/21 Range/Units 15:32 14:20 14:15 WBC (4.8-10.8) x10^3/uL RBC (4.70-6.10) 10^6/uL Hgb (14.0-18.0) g/dL Hct (42.0-52.0) % MCV (80.0-94.0) fL MCH (27.0-31.0) pg MCHC (32.0-36.0) g/dL RDW (12.0-15.0) % Plt Count (130-450) 10^3/uL MPV (7.4-11.4) fL Neut # (Auto) (1.5-6.6) 10^3/uL Lymph # (Auto) (1.5-3.5) 10^3/uL Smith # (Auto) (0.0-1.0) 10^3/uL Eos # (Auto) (0.0-0.7) 10^3/uL Baso # (Auto) (0.0-0.1) 10^3/uL Absolute Nucleated RBC x10^3/uL Nucleated RBC % /100WBC PT (9.9-12.6) secs INR (0.8-1.2) Bld Gas Analysis Time Sample Site ABG pH (7.35-7.45) ABG pCO2 (34-45) mmHg ABG pO2 (80-100) mmHg ABG HCO3 (22.0-26.0) mmol/L ABG Total CO2 (21.0-29.0) MMOL/L ABG O2 Saturation (94-98) % ABG Base Excess (-2.0-3.0) mmol/L Wilberto Test Room Air Sodium (135-145) mmol/L Potassium (3.5-5.0) mmol/L Chloride (101-111) mmol/L Carbon Dioxide (21-32) mmol/L Anion Gap (6-13) BUN (6-20) mg/dL Creatinine (0.6-1.2) mg/dL Estimated GFR (MDRD) (>89) Glucose (70-100) mg/dL Lactic Acid (0.5-2.2) mmol/L Calcium (8.5-10.3) mg/dL Phosphorus 2.5 (2.5-4.6) mg/dL Magnesium 2.0 (1.7-2.8) mg/dL Total Bilirubin (0.2-1.0) mg/dL AST (10-42) IU/L ALT (10-60) IU/L Alkaline Phosphatase (42-121) IU/L Ammonia 40.4 H (7-35) umol/L Total Protein (6.7-8.2) g/dL Albumin (3.2-5.5) g/dL Globulin (2.1-4.2) g/dL Albumin/Globulin Ratio (1.0-2.2) Lipase (22-51) U/L TSH (0.34-5.60) uIU/mL Urine Color YELLOW Urine Clarity CLEAR (CLEAR) Urine pH 6.0 (5.0-7.5) PH Ur Specific [place] 1.025 (1.002-1.030) Urine Protein 30 H (NEGATIVE) mg/dL Urine Glucose (UA) NEGATIVE (NEGATIVE) mg/dL Urine Ketones 40 H (NEGATIVE) mg/dL Urine Occult Blood SMALL H (NEGATIVE) Urine Nitrite NEGATIVE (NEGATIVE) Urine Bilirubin NEGATIVE (NEGATIVE) Urine Urobilinogen 0.2 (NORMAL) (NORMAL) E.U./dL Ur Leukocyte Esterase NEGATIVE (NEGATIVE) Urine RBC 0-5 (0-5) /HPF Urine WBC 0-3 (0-3) /HPF Ur Squamous Epith Cells RARE Squamous (<= Few) Urine Bacteria None Seen (None Seen) /HPF Ur Microscopic Review INDICATED Urine Culture Comments NOT INDICATED Nasal Adenovirus (PCR) Nasal B. parapertussis DNA (PCR) Nasal Coronavir 229E PCR Nasal Coronavir HKU1 PCR Nasal Coronavir NL63 PCR Nasal Coronavir OC43 PCR Nasal Enterovir/Rhinovir PCR Nasal Influenza B PCR Nasal Influenza A PCR Nasal Parainfluen 1 PCR Nasal Parainfluen 2 PCR Nasal Parainfluen 3 PCR Nasal Parainfluen 4 PCR Nasal RSV (PCR) Nasal B.pertussis DNA PCR Nasal C.pneumoniae (PCR) [place] Human Metapneumo PCR Nasal M.pneumoniae (PCR) Nasal SARS-CoV-2 (PCR) Salicylates mg/dL Urine Opiates Screen NEGATIVE (NEGATIVE) Ur Oxycodone Screen NEGATIVE (NEGATIVE) Urine Methadone Screen NEGATIVE (NEGATIVE) Ur Propoxyphene Screen NEGATIVE (NEGATIVE) Acetaminophen (10-30) ug/mL Ur Barbiturates Screen NEGATIVE (NEGATIVE) Ur Tricyclics Screen NEGATIVE (NEGATIVE) Ur Phencyclidine Scrn NEGATIVE (NEGATIVE) Ur Amphetamine Screen NEGATIVE (NEGATIVE) U Methamphetamines Scrn NEGATIVE (NEGATIVE) U Benzodiazepines Scrn POSITIVE H (NEGATIVE) Urine Cocaine Screen NEGATIVE (NEGATIVE) U Cannabinoids Screen NEGATIVE (NEGATIVE) Ethyl Alcohol mg/dL Serum Ketones (NEGATIVE) 10/05/21 10/05/21 10/05/21 Range/Units 14:15 14:15 14:15 WBC (4.8-10.8) x10^3/uL RBC (4.70-6.10) 10^6/uL Hgb (14.0-18.0) g/dL Hct (42.0-52.0) % MCV (80.0-94.0) fL MCH (27.0-31.0) pg MCHC (32.0-36.0) g/dL RDW (12.0-15.0) % Plt Count (130-450) 10^3/uL MPV (7.4-11.4) fL Neut # (Auto) (1.5-6.6) 10^3/uL Lymph # (Auto) (1.5-3.5) 10^3/uL Smith # (Auto) (0.0-1.0) 10^3/uL Eos # (Auto) (0.0-0.7) 10^3/uL Baso # (Auto) (0.0-0.1) 10^3/uL Absolute Nucleated RBC x10^3/uL Nucleated RBC % /100WBC PT (9.9-12.6) secs INR (0.8-1.2) Bld Gas Analysis Time Sample Site ABG pH (7.35-7.45) ABG pCO2 (34-45) mmHg ABG pO2 (80-100) mmHg ABG HCO3 (22.0-26.0) mmol/L ABG Total CO2 (21.0-29.0) MMOL/L ABG O2 Saturation (94-98) % ABG Base Excess (-2.0-3.0) mmol/L Wilberto Test Room Air Sodium 133 L (135-145) mmol/L Potassium 2.5 L* (3.5-5.0) mmol/L Chloride 89 L (101-111) mmol/L Carbon Dioxide 25 (21-32) mmol/L Anion Gap 19.0 H (6-13) BUN 12 (6-20) mg/dL Creatinine 0.8 (0.6-1.2) mg/dL Estimated GFR (MDRD) 102 (>89) Glucose 136 H (70-100) mg/dL Lactic Acid 3.6 H* (0.5-2.2) mmol/L Calcium 7.8 L (8.5-10.3) mg/dL Phosphorus (2.5-4.6) mg/dL Magnesium (1.7-2.8) mg/dL Total Bilirubin 1.5 H (0.2-1.0) mg/dL AST 293 H (10-42) IU/L ALT 108 H (10-60) IU/L Alkaline Phosphatase 78 (42-121) IU/L Ammonia (7-35) umol/L Total Protein 6.1 L (6.7-8.2) g/dL Albumin 3.8 (3.2-5.5) g/dL Globulin 2.3 (2.1-4.2) g/dL Albumin/Globulin Ratio 1.7 (1.0-2.2) Lipase 80 H (22-51) U/L TSH 0.39 (0.34-5.60) uIU/mL Urine Color Urine Clarity (CLEAR) Urine pH (5.0-7.5) PH Ur Specific [place] (1.002-1.030) Urine Protein (NEGATIVE) mg/dL Urine Glucose (UA) (NEGATIVE) mg/dL Urine Ketones (NEGATIVE) mg/dL Urine Occult Blood (NEGATIVE) Urine Nitrite (NEGATIVE) Urine Bilirubin (NEGATIVE) Urine Urobilinogen (NORMAL) E.U./dL Ur Leukocyte Esterase (NEGATIVE) Urine RBC (0-5) /HPF Urine WBC (0-3) /HPF Ur Squamous Epith Cells (<= Few) Urine Bacteria (None Seen) /HPF Ur Microscopic Review Urine Culture Comments Nasal Adenovirus (PCR) Nasal B. parapertussis DNA (PCR) Nasal Coronavir 229E PCR Nasal Coronavir HKU1 PCR Nasal Coronavir NL63 PCR Nasal Coronavir OC43 PCR Nasal Enterovir/Rhinovir PCR Nasal Influenza B PCR Nasal Influenza A PCR Nasal Parainfluen 1 PCR Nasal Parainfluen 2 PCR Nasal Parainfluen 3 PCR Nasal Parainfluen 4 PCR Nasal RSV (PCR) Nasal B.pertussis DNA PCR Nasal C.pneumoniae (PCR) [place] Human Metapneumo PCR Nasal M.pneumoniae (PCR) Nasal SARS-CoV-2 (PCR) Salicylates < 6.0 mg/dL Urine Opiates Screen (NEGATIVE) Ur Oxycodone Screen (NEGATIVE) Urine Methadone Screen (NEGATIVE) Ur Propoxyphene Screen (NEGATIVE) Acetaminophen < 10 L (10-30) ug/mL Ur Barbiturates Screen (NEGATIVE) Ur Tricyclics Screen (NEGATIVE) Ur Phencyclidine Scrn (NEGATIVE) Ur Amphetamine Screen (NEGATIVE) U Methamphetamines Scrn (NEGATIVE) U Benzodiazepines Scrn (NEGATIVE) Urine Cocaine Screen (NEGATIVE) U Cannabinoids Screen (NEGATIVE) Ethyl Alcohol 291.2 mg/dL Serum Ketones SMALL H (NEGATIVE) 10/05/21 10/05/21 Range/Units 14:15 14:00 WBC 5.9 (4.8-10.8) x10^3/uL RBC 4.15 L (4.70-6.10) 10^6/uL Hgb 14.6 (14.0-18.0) g/dL Hct 39.2 L (42.0-52.0) % MCV 94.5 H (80.0-94.0) fL MCH 35.2 H (27.0-31.0) pg MCHC 37.2 H (32.0-36.0) g/dL RDW 11.9 L (12.0-15.0) % Plt Count 72 L (130-450) 10^3/uL MPV 9.0 (7.4-11.4) fL Neut # (Auto) 4.0 (1.5-6.6) 10^3/uL Lymph # (Auto) 1.5 (1.5-3.5) 10^3/uL Smith # (Auto) 0.3 (0.0-1.0) 10^3/uL Eos # (Auto) 0.1 (0.0-0.7) 10^3/uL Baso # (Auto) 0.0 (0.0-0.1) 10^3/uL Absolute Nucleated RBC 0.00 x10^3/uL Nucleated RBC % 0.0 /100WBC PT (9.9-12.6) secs INR (0.8-1.2) Bld Gas Analysis Time Sample Site ABG pH (7.35-7.45) ABG pCO2 (34-45) mmHg ABG pO2 (80-100) mmHg ABG HCO3 (22.0-26.0) mmol/L ABG Total CO2 (21.0-29.0) MMOL/L ABG O2 Saturation (94-98) % ABG Base Excess (-2.0-3.0) mmol/L Wilberto Test Room Air Sodium (135-145) mmol/L Potassium (3.5-5.0) mmol/L Chloride (101-111) mmol/L Carbon Dioxide (21-32) mmol/L Anion Gap (6-13) BUN (6-20) mg/dL Creatinine (0.6-1.2) mg/dL Estimated GFR (MDRD) (>89) Glucose (70-100) mg/dL Lactic Acid (0.5-2.2) mmol/L Calcium (8.5-10.3) mg/dL Phosphorus (2.5-4.6) mg/dL Magnesium (1.7-2.8) mg/dL Total Bilirubin (0.2-1.0) mg/dL AST (10-42) IU/L ALT (10-60) IU/L Alkaline Phosphatase (42-121) IU/L Ammonia (7-35) umol/L Total Protein (6.7-8.2) g/dL Albumin (3.2-5.5) g/dL Globulin (2.1-4.2) g/dL Albumin/Globulin Ratio (1.0-2.2) Lipase (22-51) U/L TSH (0.34-5.60) uIU/mL Urine Color Urine Clarity (CLEAR) Urine pH (5.0-7.5) PH Ur Specific [place] (1.002-1.030) Urine Protein (NEGATIVE) mg/dL Urine Glucose (UA) (NEGATIVE) mg/dL Urine Ketones (NEGATIVE) mg/dL Urine Occult Blood (NEGATIVE) Urine Nitrite (NEGATIVE) Urine Bilirubin (NEGATIVE) Urine Urobilinogen (NORMAL) E.U./dL Ur Leukocyte Esterase (NEGATIVE) Urine RBC (0-5) /HPF Urine WBC (0-3) /HPF Ur Squamous Epith Cells (<= Few) Urine Bacteria (None Seen) /HPF Ur Microscopic Review Urine Culture Comments Nasal Adenovirus (PCR) NOT DETECTED Nasal B. parapertussis DNA (PCR) NOT DETECTED Nasal Coronavir 229E PCR NOT DETECTED Nasal Coronavir HKU1 PCR NOT DETECTED Nasal Coronavir NL63 PCR NOT DETECTED Nasal Coronavir OC43 PCR NOT DETECTED Nasal Enterovir/Rhinovir PCR NOT DETECTED Nasal Influenza B PCR NOT DETECTED Nasal Influenza A PCR NOT DETECTED Nasal Parainfluen 1 PCR NOT DETECTED Nasal Parainfluen 2 PCR NOT DETECTED Nasal Parainfluen 3 PCR NOT DETECTED Nasal Parainfluen 4 PCR NOT DETECTED Nasal RSV (PCR) NOT DETECTED Nasal B.pertussis DNA PCR NOT DETECTED Nasal C.pneumoniae (PCR) NOT DETECTED Tarun Human Metapneumo PCR NOT DETECTED Nasal M.pneumoniae (PCR) NOT DETECTED Nasal SARS-CoV-2 (PCR) NOT DETECTED Salicylates mg/dL Urine Opiates Screen (NEGATIVE) Ur Oxycodone Screen (NEGATIVE) Urine Methadone Screen (NEGATIVE) Ur Propoxyphene Screen (NEGATIVE) Acetaminophen (10-30) ug/mL Ur Barbiturates Screen (NEGATIVE) Ur Tricyclics Screen (NEGATIVE) Ur Phencyclidine Scrn (NEGATIVE) Ur Amphetamine Screen (NEGATIVE) U Methamphetamines Scrn (NEGATIVE) U Benzodiazepines Scrn (NEGATIVE) Urine Cocaine Screen (NEGATIVE) U Cannabinoids Screen (NEGATIVE) Ethyl Alcohol mg/dL Serum Ketones (NEGATIVE) Assessment/Plan - Problem List (1) AMS (altered mental status) Impression: This is significantly improved. He is alert and oriented now. Still quite lethargic and this is likely due to alcohol withdrawal as well as the use of benzodiazepines. We will continue him on Librium with Ativan as needed. Qualifiers: Altered mental status type: coma Coma depth: Lucas coma 9-12 Coma timing: at arrival to emergency department Qualified Code(s): R40.2422 - Faith coma scale score 9-12, at arrival to emergency department (2) Alcohol withdrawal Impression: He is going to alcohol withdrawal with delirium although his mentation is improved. We will keep him on Librium and use Ativan as needed. Continue with thiamine and multivitamin. (3) Alcoholic hepatitis Impression: His LFTs are elevated consistent alcoholic hepatitis. There is no role for steroids given his low discriminant function score. (4) Alcohol abuse Impression: He has a known history of alcohol abuse and looks like he has evidence of early cirrhosis. He is currently going through withdrawal. He will need treatment for his chronic alcohol use as it has led to him being gravely disabled. (5) Suicidal ideations Impression: He currently denies any suicidal ideations but his ex- reported he has had suicidal thoughts in the past. He will be evaluated by social work and DCR once medically cleared. We will continue one-to-one observation for the time being. (6) Alcoholic ketoacidosis Impression: This is now resolved. His lactic acid within normal limits and his anion gap is closed. He has been started on a full liquid diet. (7) Acute sinusitis Impression: Imaging reported evidence of sinusitis on CT of the head but he reports no symptoms. We will discontinue antibiotics and monitor.
[2021-10-06] MEDS: ONDANSETRON 4 MG/2 ML VIAL IVP PRN (16:02)
[2021-10-07] MEDS: LORazepam 2 MG/ML VIAL IVP PRN ×6 (01:42→16:20)
[2021-10-07] MEDS: SODIUM CHLORIDE FLUSH 0.9% 10 ML SYRINGE IVP SCH ×3 (01:42→16:21)
[2021-10-07] MEDS: PROCHLORPERAZINE 10 MG/2 ML VIAL IVP PRN (04:59)
[2021-10-07 05:47] LABS: BASOPHILS % (AUTO) 0.4 %; EOSINOPHILS % (AUTO) 0.6 %; HCT - HEMATOCRIT 34.8 % (42.0-52.0); HGB - HEMOGLOBIN 12.8 g/dL (14.0-18.0); LYMPHOCYTES # (AUTO) 0.8 10^3/uL (1.5-3.5); LYMPHOCYTES % (AUTO) 16.8 %; MEAN CORPUSCULAR HEMOGLOBIN 35.3 pg (27.0-31.0); MEAN CORPUSCULAR HGB CONC 36.8 g/dL (32.0-36.0); MEAN CORPUSCULAR VOLUME 95.9 fL (80.0-94.0); MEAN PLATELET VOLUME 10.9 fL (7.4-11.4); MONOCYTES # (AUTO) 0.3 10^3/uL (0.0-1.0); MONOCYTES % (AUTO) 6.6 %; NEUTROPHILS # (AUTO) 3.5 10^3/uL (1.5-6.6); PLT - PLATELET COUNT 40 10^3/uL (130-450); RED BLOOD COUNT 3.63 10^6/uL (4.70-6.10); RED CELL DISTRIBUTION WIDTH 11.8 % (12.0-15.0); WHITE BLOOD COUNT 4.7 x10^3/uL (4.8-10.8)
[2021-10-07 05:58] LABS: ALBUMIN 3.3 g/dL (3.2-5.5); ALBUMIN/GLOBULIN RATIO 1.4 (1.0-2.2); ALKALINE PHOSPHATASE 70 IU/L (42-121); ALT ALANINE AMINOTRANSFERASE 78 IU/L (10-60); AST ASPARTATE AMINOTRANSFERASE 142 IU/L (10-42); BILIRUBIN,TOTAL 1.2 mg/dL (0.2-1.0); BUN - BLOOD UREA NITROGEN < 5 mg/dL (6-20); CALCIUM 8.5 mg/dL (8.5-10.3); CARBON DIOXIDE - CO2 26 mmol/L (21-32); CHLORIDE 97 mmol/L (101-111); CREATININE 0.6 mg/dL (0.6-1.2); GFR - MDRD 143 (>89); GLUCOSE 162 mg/dL (70-100); POTASSIUM 2.9 mmol/L (3.5-5.0); SODIUM 134 mmol/L (135-145); TOTAL PROTEIN 5.7 g/dL (6.7-8.2)
[2021-10-07] MEDS: PANTOPRAZOLE 40 MG TABLET PO SCH (06:16)
[2021-10-07] MEDS: chlordiazePOXIDE 25 MG CAPSULE PO SCH ×4 (06:16→23:58)
--- NOTE | 2021-10-07 07:58 | PROVIDER PROGRESS NOTE ---
Subjective - Prog Note Date Prog Note Date: 10/07/21 - Subjective Subjective: He feels quite tired today. Reports no pain. Current Medications - Current Medications Current Medications: Active Medications Acetaminophen (Acetaminophen 325 Mg Tablet) 650 mg PO Q4HR PRN PRN Reason: Pain 1 to 4 Chlordiazepoxide HCl (Chlordiazepoxide 25 Mg Capsule) 25 mg PO Q6HR [facility] Last Admin: 10/07/21 06:16 Dose: 25 mg Potassium Chloride/Dextrose/Sod Cl (D5.45ns W/20 Meq Kcl) 1,000 mls @ 100 m ls/hr IV .Q10H [facility] Last Admin: 10/06/21 23:59 Dose: 100 mls/hr Potassium Chloride (Potassium Chloride) 10 meq in 100 mls @ 100 mls/hr IV Q1H [facility] Stop: 10/07/21 11:59 Lactulose (Lactulose 10 Gm /15 Ml Udc) 10 gm PO DAILY [facility] Last Admin: 10/06/21 09:59 Dose: 10 gm Lorazepam (Lorazepam 2 Mg/Ml Vial) 2 mg IVP Q1H PRN; Protocol PRN Reason: CIWA >8 Last Admin: 10/07/21 05:00 Dose: 2 mg Ondansetron HCl (Ondansetron 4 Mg/2 Ml Vial) 4 mg IVP Q6HR PRN PRN Reason: Nausea / Vomiting Last Admin: 10/06/21 16:02 Dose: 4 mg Pantoprazole Sodium (Pantoprazole 40 Mg Tablet) 40 mg PO QDAC [facility] Last Admin: 10/07/21 06:16 Dose: 40 mg Multivit/Folic Acid/Iron ( Vitamin Tablet) 1 tab PO DAILYWM [facility] Prochlorperazine Edisylate (Prochlorperazine 10 Mg/2 Ml Vial) 10 mg IVP Q6HR PRN PRN Reason: Nausea / Vomiting Last Admin: 10/07/21 04:59 Dose: 10 mg Sodium Chloride (Sodium Chloride Flush 0.9% 10 Ml Syringe) 10 ml IVP PRN PRN PRN Reason: NEEDED PER PROVIDER ORDERS Sodium Chloride (Sodium Chloride Flush 0.9% 10 Ml Syringe) 10 ml IVP 0100,0900,1700 [facility] Last Admin: 10/07/21 01:42 Dose: 10 ml Thiamine HCl (Thiamine 100 Mg Tablet) 100 mg PO DAILY [facility] traMADol [Ultram] 50 mg PO Q6H PRN 01/25/21 Alprazolam [Xanax] 0.25 mg PO QPM PRN 10/06/21 Omeprazole Magnesium 20 mg PO DAILY 10/06/21 Objective - Vital Signs/Intake & Output Reviewed Vital Signs: Yes Vital Signs: Vital Signs x48h Temp Pulse Resp BP Pulse Ox 10/07/21 04:35 36.8 C 93 28 H 129/92 H 99 10/07/21 01:00 37.2 C 106 H 16 139/100 H 99 Intake & Output: Intake & Output 10/04/21 10/05/21 10/06/21 10/07/21 23:59 23:59 23:59 23:59 Intake Total 3331.000 6643.067 3250 Output Total 450 8100 5300 Balance 2881.000 -1456.933 -2049 - Objective General Appearance: positive: Lethargic (He has been asleep most of the day.) Eyes Bilateral: positive: Normal inspection, Conjunctivae nml ENT: positive: ENT inspection nml Neck: positive: Nml inspection Respiratory: positive: No respiratory distress. negative: Wheezes, Rales Cardiovascular: positive: Regular rate & rhythm. negative: Tachycardia Abdomen: positive: Non-tender, No distention. negative: Tenderness Skin: positive: Warm, Dry Extremities: positive: No pedal edema Neurologic/Psychiatric: positive: Other (He is still tremulous at times when moving his upper extremities. He is otherwise asleep. No focal deficits.). negative: Disoriented to person, Disoriented to place - Lab Results Fish Bones: 10/07/21 05:30 10/07/21 05:30 Other Labs: Lab Results x24hrs 10/07/21 10/07/21 10/07/21 Range/Units 05:30 05:30 05:30 WBC 4.7 L (4.8-10.8) x10^3/uL RBC 3.63 L (4.70-6.10) 10^6/uL Hgb 12.8 L (14.0-18.0) g/dL Hct 34.8 L (42.0-52.0) % MCV 95.9 H (80.0-94.0) fL MCH 35.3 H (27.0-31.0) pg MCHC 36.8 H (32.0-36.0) g/dL RDW 11.8 L (12.0-15.0) % Plt Count 40 L (130-450) 10^3/uL MPV 10.9 (7.4-11.4) fL Neut # (Auto) 3.5 (1.5-6.6) 10^3/uL Lymph # (Auto) 0.8 L (1.5-3.5) 10^3/uL [place] # (Auto) 0.3 (0.0-1.0) 10^3/uL Eos # (Auto) 0.0 (0.0-0.7) 10^3/uL Baso # (Auto) 0.0 (0.0-0.1) 10^3/uL Absolute Nucleated RBC 0.00 x10^3/uL Nucleated RBC % 0.0 /100WBC Sodium 134 L (135-145) mmol/L Potassium 2.9 L (3.5-5.0) mmol/L Chloride 97 L (101-111) mmol/L Carbon Dioxide 26 (21-32) mmol/L Anion Gap 11.0 (6-13) BUN < 5 L (6-20) mg/dL Creatinine 0.6 (0.6-1.2) mg/dL Estimated GFR (MDRD) 143 (>89) Glucose 162 H (70-100) mg/dL Lactic Acid (0.5-2.2) mmol/L Calcium 8.5 (8.5-10.3) mg/dL Total Bilirubin 1.2 H (0.2-1.0) mg/dL AST 142 H (10-42) IU/L ALT 78 H (10-60) IU/L Alkaline Phosphatase 70 (42-121) IU/L Ammonia 25.1 (7-35) umol/L Total Protein 5.7 L (6.7-8.2) g/dL Albumin 3.3 (3.2-5.5) g/dL Globulin 2.4 (2.1-4.2) g/dL Albumin/Globulin Ratio 1.4 (1.0-2.2) 10/06/21 Range/Units 08:24 WBC (4.8-10.8) x10^3/uL RBC (4.70-6.10) 10^6/uL Hgb (14.0-18.0) g/dL Hct (42.0-52.0) % MCV (80.0-94.0) fL MCH (27.0-31.0) pg MCHC (32.0-36.0) g/dL RDW (12.0-15.0) % Plt Count (130-450) 10^3/uL MPV (7.4-11.4) fL Neut # (Auto) (1.5-6.6) 10^3/uL Lymph # (Auto) (1.5-3.5) 10^3/uL [place] # (Auto) (0.0-1.0) 10^3/uL Eos # (Auto) (0.0-0.7) 10^3/uL Baso # (Auto) (0.0-0.1) 10^3/uL Absolute Nucleated RBC x10^3/uL Nucleated RBC % /100WBC Sodium (135-145) mmol/L Potassium (3.5-5.0) mmol/L Chloride (101-111) mmol/L Carbon Dioxide (21-32) mmol/L Anion Gap (6-13) BUN (6-20) mg/dL Creatinine (0.6-1.2) mg/dL Estimated GFR (MDRD) (>89) Glucose (70-100) mg/dL Lactic Acid 1.0 (0.5-2.2) mmol/L Calcium (8.5-10.3) mg/dL Total Bilirubin (0.2-1.0) mg/dL AST (10-42) IU/L ALT (10-60) IU/L Alkaline Phosphatase (42-121) IU/L Ammonia (7-35) umol/L Total Protein (6.7-8.2) g/dL Albumin (3.2-5.5) g/dL Globulin (2.1-4.2) g/dL Albumin/Globulin Ratio (1.0-2.2) ABX Reporting Has patient been on IV antibiotics over the past 48 hours?: No Assessment/Plan - Problem List (1) Alcohol withdrawal Impression: He is going through alcohol withdrawal and he has been on Librium which has not been enough. He continues to require IV Ativan at times for delirium and tremors. We will keep him on Librium and look to start to wean him off of this beginning tomorrow. We will continue with IV Ativan as needed. We will try to limit the use of IV Ativan as I am concerned he may develop benzodiazepine delirium. He is not medically cleared yet for evaluation by DCR. (2) AMS (altered mental status) Impression: He is no longer altered but he is still delirious at times likely due to the Ativan he is receiving for the alcohol withdrawal. Qualifiers: Altered mental status type: coma Coma depth: [place] coma 9-12 Coma timing: at arrival to emergency department Qualified Code(s): R40.2422 - [place] coma scale score 9-12, at arrival to emergency department (3) Alcoholic hepatitis Impression: Left these are consistent with alcoholic otitis. Fortunately are improving. He was not given steroids due to his low discriminant function score. (4) Alcohol abuse Impression: He has no history of alcohol abuse and it appears his early evidence of cirrhosis. We are currently treating his alcohol withdrawal with Librium and Ativan. (5) Suicidal ideations Impression: He has been denying suicidal ideations but his ex- reported he has had suicidal thoughts in the past. He will be evaluated by social work and DCR once medically cleared. We will continue one-to-one observation for the time being given his delirium. (6) Alcoholic ketoacidosis Impression: This is now resolved. His lactic acid within normal limits and his anion gap is closed. He has been started on a full liquid diet. (7) Acute sinusitis Impression: Imaging reported evidence of sinusitis on CT of the head but he reports no symptoms. Antibiotics have been discontinued.
[2021-10-07] MEDS: POTASSIUM CHLOR 10 MEQ/100 ML 10 MEQ/100 ML BAG IV SCH ×4 (08:29→13:14)
[2021-10-07] MEDS: THIAMINE 100 MG TABLET PO SCH (08:46)
[2021-10-07] MEDS: PRENATAL VITAMIN TABLET PO SCH (08:46)
[2021-10-07] MEDS: LACTULOSE 10 GM /15 ML UDC PO SCH ×3 (08:46→21:11)
[2021-10-07] MEDS: D5.45NS W/20 MEQ KCL 1,000 ML IV SCH ×2 (09:29→19:44)
[2021-10-07] MEDS: SODIUM CHLORIDE FLUSH 0.9% 10 ML SYRINGE IVP PRN ×2 (09:35→16:25)
[2021-10-08] MEDS: SODIUM CHLORIDE FLUSH 0.9% 10 ML SYRINGE IVP SCH ×3 (01:11→16:09)
[2021-10-08] MEDS: LACTULOSE 10 GM /15 ML UDC PO SCH (04:33)
[2021-10-08] MEDS: D5.45NS W/20 MEQ KCL 1,000 ML IV SCH ×2 (05:38→16:09)
[2021-10-08] MEDS: chlordiazePOXIDE 25 MG CAPSULE PO SCH (05:40)
[2021-10-08] MEDS: PANTOPRAZOLE 40 MG TABLET PO SCH (05:40)
[2021-10-08 06:17] LABS: BASOPHILS % (AUTO) 0.7 %; EOSINOPHILS # (AUTO) 0.1 10^3/uL (0.0-0.7); EOSINOPHILS % (AUTO) 1.1 %; HCT - HEMATOCRIT 39.8 % (42.0-52.0); HGB - HEMOGLOBIN 14.2 g/dL (14.0-18.0); LYMPHOCYTES # (AUTO) 0.9 10^3/uL (1.5-3.5); LYMPHOCYTES % (AUTO) 19.9 %; MEAN CORPUSCULAR HEMOGLOBIN 34.9 pg (27.0-31.0); MEAN CORPUSCULAR HGB CONC 35.7 g/dL (32.0-36.0); MEAN CORPUSCULAR VOLUME 97.8 fL (80.0-94.0); MONOCYTES # (AUTO) 0.4 10^3/uL (0.0-1.0); MONOCYTES % (AUTO) 8.1 %; NEUTROPHILS # (AUTO) 3.1 10^3/uL (1.5-6.6); NEUTROPHILS % (AUTO) 69.8 %; PLT - PLATELET COUNT 57 10^3/uL (130-450); RED BLOOD COUNT 4.07 10^6/uL (4.70-6.10); WHITE BLOOD COUNT 4.5 x10^3/uL (4.8-10.8)
[2021-10-08 06:35] LABS: ALBUMIN 3.8 g/dL (3.2-5.5); ALBUMIN/GLOBULIN RATIO 1.5 (1.0-2.2); ALKALINE PHOSPHATASE 74 IU/L (42-121); ALT ALANINE AMINOTRANSFERASE 71 IU/L (10-60); AST ASPARTATE AMINOTRANSFERASE 80 IU/L (10-42); BUN - BLOOD UREA NITROGEN < 5 mg/dL (6-20); CALCIUM 9.3 mg/dL (8.5-10.3); CARBON DIOXIDE - CO2 29 mmol/L (21-32); CHLORIDE 98 mmol/L (101-111); CREATININE 0.6 mg/dL (0.6-1.2); GFR - MDRD 143 (>89); GLUCOSE 106 mg/dL (70-100); POTASSIUM 3.5 mmol/L (3.5-5.0); SODIUM 137 mmol/L (135-145); TOTAL PROTEIN 6.3 g/dL (6.7-8.2)
[2021-10-08] MEDS: ONDANSETRON 4 MG/2 ML VIAL IVP PRN (08:42)
[2021-10-08] MEDS: LORazepam 2 MG/ML VIAL IVP PRN ×3 (08:42→21:11)
[2021-10-08] MEDS: SODIUM CHLORIDE FLUSH 0.9% 10 ML SYRINGE IVP PRN ×2 (08:43→16:21)
[2021-10-08] MEDS ORDERED: ALPRAZolam 0.25 MG TABLET PO PRN (08:49)
[2021-10-08] MEDS: THIAMINE 100 MG TABLET PO SCH (09:31)
[2021-10-08] MEDS: PRENATAL VITAMIN TABLET PO SCH (09:31)
[2021-10-08] MEDS: ACETAMINOPHEN 325 MG TABLET PO PRN ×3 (12:17→22:28)
[2021-10-08] MEDS ORDERED: chlordiazePOXIDE 25 MG CAPSULE PO SCH (14:00)
--- NOTE | 2021-10-08 14:49 | PROVIDER PROGRESS NOTE ---
Assessment/Plan - Problem List (1) AMS (altered mental status) Qualifiers: Altered mental status type: coma Coma depth: [place] coma 9-12 Coma timing: at arrival to emergency department Qualified Code(s): R40.2422 - [place] coma scale score 9-12, at arrival to emergency department Assessment/Plan: 10/08 great improved. ammonia level is down to normal arrange, hold Lactulose now, and recheck ammonia level. it is likely caused by his Alcoholic intoxication, his alcohol level is close to 300. CT of head reveal no acute process. pt has slight elevated ammonia level. Neuro check for pt, IVF, add lactulose, and tele monitor, continue close vital and lab monitor (2) Alcohol intoxication Conclusion/Plan: 10/08 improved. pt report he has poor appetite now, hope to have regular diet. continue IVF, continue , Vitamin B1 PO now. strongly advise pt again for quit of alcohol. this is pt's pt medical problem for over 5 yrs per pt's ex- report. DCR is involved, and social science instructor is consulted. continue D5 1/2 NS with k, bannan bag with IV of vitamin B1, CIWA protocol. because pt has mild respiratory distress, he had somnolent before although now he is alert. Reduce to 1mg Ativan per Q1H PRN for alcohol withdrawal. we may adjust as pt's need. (3) Hypoxia Conclusion/Plan: 10/08 resolved pt need 4 liter of O2 and have 98% O2 sat, Patient does not present acute Respiratory distress. CXR reveal no acute Abnormality. It is likely from patient's alcohol intoxication and somnolent. ABGs reveals normal PH, fair respiratory status. Cause usage of sedation medication, Continue oxygen supplement as needed and compliance monitor (4) Alcoholic ketoacidosis Conclusion/Plan: 10/08 likely resolved, will recheck. pt had no nausea or vomiting now, and ask regular diet but remain poor appetite now. Serum reveal small ketones, It is likely from patient alcohol intoxication and nausea and vomiting. IV of D5 1/2 NS with K, Continue banana bag, Continue laboratory monitoring, Continue glucose check (5) Hypokalemia Conclusion/Plan: 10/08 resolved Potassium 2.5, it is likely caused by nausea and vomiting, and poor oral intake. replace and lab monitor. pt's Magnesium and phosphorus is at a normal range. (6) Elevated lactic acid level Conclusion/Plan: 10/08 resolved likely caused by patient's alcohol intoxication. ABGs show normal PH. IV fluids and laboratory analyst (7) Suicidal ideations Conclusion/Plan: 10/08 pt with have social science instructor consultation, will continue 1:1 observation now Patient's ex- reported patient had suicidal ideation, add 1:1 observation, Consulted with social work (8) Elevated liver enzymes Conclusion/Plan: 10/08 great improve. Patient had a elevated liver enzyme, likely caused by Acute alcohol intoxication. continue IVF, and lab monitor (9) Gravely disabled Conclusion/Plan: pt's ex- report pt is living with her but his room is covered in feces and urine. DCR is involved the care for pt. social science instructor is consulted. DCR would be involuntarily detain him for gravely disabled if pt could be medical clear (10) Acute sinusitis Conclusion/Plan: Patient's report pt had "bad" sinus infection, hope to be treated. CT of head reveal acute sinusitis. add Rocephin IV for pt now. (11)alcoholic withdrawal 10/08 great improved. pt has no tremor, N/V. reduce Librium dosage, continue ativan IV PRN, continue CIWA protocol (12)thrombocytopenia improved, today his Platelet is 57. it is likely caused by his alcoholic liver disease, continue lab monitor now. - Current Meds Current Meds: Current Medications Generic Name Dose Route Start Last Admin Trade Name Freq PRN Reason Stop Dose Admin Acetaminophen 650 mg 10/05/21 16:24 10/08/21 12:17 Acetaminophen 325 Mg Tablet PO 650 mg Q4HR PRN Administration Pain 1 to 4 Chlordiazepoxide HCl 25 mg 10/08/21 14:00 10/08/21 14:00 Chlordiazepoxide 25 Mg Capsule PO 25 mg Q8HR [facility] Administration Potassium Chloride/Dextrose/Sod Cl 1,000 mls @ 100 mls/hr 10/05/21 17:00 10/08/21 05:38 D5.45ns W/20 Meq Kcl IV 100 mls/hr .Q10H [facility] Administration Lorazepam 2 mg 10/06/21 01:38 10/08/21 08:42 Lorazepam 2 Mg/Ml Vial IVP 2 mg Q1H PRN Administration CIWA >8 Protocol Ondansetron HCl 4 mg 10/05/21 16:24 10/08/21 08:42 Ondansetron 4 Mg/2 Ml Vial IVP 4 mg Q6HR PRN Administration Nausea / Vomiting Pantoprazole Sodium 40 mg 10/07/21 07:00 10/08/21 05:40 Pantoprazole 40 Mg Tablet PO 40 mg QDAC [facility] Administration Multivit/Folic Acid/Iron 1 tab 10/07/21 08:00 10/08/21 09:31 Vitamin Tablet PO 1 tab DAILYWM [facility] Administration Prochlorperazine Edisylate 10 mg 10/06/21 17:31 10/07/21 04:59 Prochlorperazine 10 Mg/2 Ml Vial IVP 10 mg Q6HR PRN Administration Nausea / Vomiting Sodium Chloride 10 ml 10/05/21 16:19 10/08/21 08:43 Sodium Chloride Flush 0.9% 10 Ml Syringe IVP 10 ml PRN PRN Administration NEEDED PER PROVIDER ORDERS Sodium Chloride 10 ml 10/05/21 17:00 10/08/21 08:42 Sodium Chloride Flush 0.9% 10 Ml Syringe IVP 10 ml 0100,0900,1700 [facility] Administration Thiamine HCl 100 mg 10/07/21 09:00 10/08/21 09:31 Thiamine 100 Mg Tablet PO 100 mg DAILY [facility] Administration - Lab Result Fish Bone Diagrams: 10/08/21 05:30 10/08/21 05:30 - Additional Planning My Orders: My Active Orders 10/08/21 Lunch Regular Diet [DIET] 10/08/21 14:00 chlordiazePOXIDE [Librium] 25 mg PO Q8HR 10/09/21 05:00 CBC - COMP BLD CT W/AUTO DIFF [HEME] DAILYLAB CMP [COMPREHENSIVE METABOLIC PANEL] [CHEM] DAILYLAB 10/10/21 05:00 CBC - COMP BLD CT W/AUTO DIFF [HEME] DAILYLAB CMP [COMPREHENSIVE METABOLIC PANEL] [CHEM] DAILYLAB 10/11/21 05:00 CBC - COMP BLD CT W/AUTO DIFF [HEME] DAILYLAB CMP [COMPREHENSIVE METABOLIC PANEL] [CHEM] DAILYLAB Subjective - Subjective Patient Reports: Feeling Better, Resting Comfortably Objective Vital Signs: Vital Signs - 24 hr 10/07/21 10/07/21 10/08/21 16:57 20:46 01:13 Temperature 36.5 C 36.2 C L Heart Rate [ 75 73 83 Brachial] Respiratory 18 Rate Blood Pressure 134/82 H 128/82 H 135/82 H [Right Brachial artery] O2 Saturation 100 97 99 10/08/21 10/08/21 10/08/21 04:59 07:44 11:30 Temperature 36.5 C 36.7 C 36.5 C Heart Rate [ 87 85 84 Brachial] Respiratory 18 19 20 Rate Blood Pressure 130/80 158/89 H 139/86 H [Right Brachial artery] O2 Saturation 98 100 Oxygen O2 Source Room air I&O (Last 24 Hrs): Intake and Output Totals x24h 10/06/21 10/07/21 10/08/21 23:59 23:59 23:59 Intake Total 6643.067 9691.25 4660 Output Total 8100 9775 6250 Balance -1456.933 -83.75 -1590 General: Alert, Oriented x3, Cooperative, No acute distress HEENT: Atraumatic Neck: Supple Lymphatic: no adenopathy Neuro: Alert, Non Focal Cardiovascular: Regular rate, Normal S1, Normal S2 Respiratory: Chest non-tender, No respiratory distress Abdomen: Normal bowel sounds, Soft Extremities: Normal pulses - Results Results: Laboratory Results WBC 4.5 x10^3/uL (4.8-10.8) L 10/08/21 05:30 RBC 4.07 10^6/uL (4.70-6.10) L 10/08/21 05:30 Hgb 14.2 g/dL (14.0-18.0) 10/08/21 05:30 Hct 39.8 % (42.0-52.0) L 10/08/21 05:30 MCV 97.8 fL (80.0-94.0) H 10/08/21 05:30 MCH 34.9 pg (27.0-31.0) H 10/08/21 05:30 MCHC 35.7 g/dL (32.0-36.0) 10/08/21 05:30 RDW 12.0 % (12.0-15.0) 10/08/21 05:30 Plt Count 57 10^3/uL (130-450) L 10/08/21 05:30 MPV 11.0 fL (7.4-11.4) 10/08/21 05:30 Neut # (Auto) 3.1 10^3/uL (1.5-6.6) 10/08/21 05:30 Lymph # (Auto) 0.9 10^3/uL (1.5-3.5) L 10/08/21 05:30 [place] # (Auto) 0.4 10^3/uL (0.0-1.0) 10/08/21 05:30 Eos # (Auto) 0.1 10^3/uL (0.0-0.7) 10/08/21 05:30 Baso # (Auto) 0.0 10^3/uL (0.0-0.1) 10/08/21 05:30 Absolute Nucleated RBC 0.00 x10^3/uL 10/08/21 05:30 Nucleated RBC % 0.0 /100WBC 10/08/21 05:30 PT 12.0 secs (9.9-12.6) 10/05/21 17:56 INR 1.1 (0.8-1.2) 10/05/21 17:56 Bld Gas Analysis Time 1749 10/05/21 17:40 Sample Site LEFT RADIAL 10/05/21 17:40 ABG pH 7.43 (7.35-7.45) 10/05/21 17:40 ABG pCO2 38 mmHg (34-45) 10/05/21 17:40 ABG pO2 72 mmHg (80-100) L 10/05/21 17:40 ABG HCO3 24.8 mmol/L (22.0-26.0) 10/05/21 17:40 ABG Total CO2 26.0 MMOL/L (21.0-29.0) 10/05/21 17:40 ABG O2 Saturation 92 % (94-98) L 10/05/21 17:40 ABG Base Excess 0.7 mmol/L (-2.0-3.0) 10/05/21 17:40 Wilberto Test POSITIVE 10/05/21 17:40 Room Air YES 10/05/21 17:40 Sodium 137 mmol/L (135-145) 10/08/21 05:30 Potassium 3.5 mmol/L (3.5-5.0) 10/08/21 05:30 Chloride 98 mmol/L (101-111) L 10/08/21 05:30 Carbon Dioxide 29 mmol/L (21-32) 10/08/21 05:30 Anion Gap 10.0 (6-13) 10/08/21 05:30 BUN < 5 mg/dL (6-20) L 10/08/21 05:30 Creatinine 0.6 mg/dL (0.6-1.2) 10/08/21 05:30 Estimated GFR (MDRD) 143 (>89) 10/08/21 05:30 Glucose 106 mg/dL (70-100) H 10/08/21 05:30 Lactic Acid 1.0 mmol/L (0.5-2.2) 10/06/21 08:24 Calcium 9.3 mg/dL (8.5-10.3) 10/08/21 05:30 Phosphorus 2.5 mg/dL (2.5-4.6) 10/05/21 14:15 Magnesium 2.0 mg/dL (1.7-2.8) 10/05/21 14:15 Total Bilirubin 1.0 mg/dL (0.2-1.0) 10/08/21 05:30 AST 80 IU/L (10-42) H 10/08/21 05:30 ALT 71 IU/L (10-60) H 10/08/21 05:30 Alkaline Phosphatase 74 IU/L (42-121) 10/08/21 05:30 Ammonia 16.2 umol/L (7-35) 10/08/21 09:47 Total Protein 6.3 g/dL (6.7-8.2) L 10/08/21 05:30 Albumin 3.8 g/dL (3.2-5.5) 10/08/21 05:30 Globulin 2.5 g/dL (2.1-4.2) 10/08/21 05:30 Albumin/Globulin Ratio 1.5 (1.0-2.2) 10/08/21 05:30 Lipase 80 U/L (22-51) H 10/05/21 14:15 TSH 0.39 uIU/mL (0.34-5.60) 10/05/21 14:15 Urine Color YELLOW 10/05/21 14:20 Urine Clarity CLEAR (CLEAR) 10/05/21 14:20 Urine pH 6.0 PH (5.0-7.5) 10/05/21 14:20 Ur Specific [place] 1.025 (1.002-1.030) 10/05/21 14:20 Urine Protein 30 mg/dL (NEGATIVE) H 10/05/21 14:20 Urine Glucose (UA) NEGATIVE mg/dL (NEGATIVE) 10/05/21 14:20 Urine Ketones 40 mg/dL (NEGATIVE) H 10/05/21 14:20 Urine Occult Blood SMALL (NEGATIVE) H 10/05/21 14:20 Urine Nitrite NEGATIVE (NEGATIVE) 10/05/21 14:20 Urine Bilirubin NEGATIVE (NEGATIVE) 10/05/21 14:20 Urine Urobilinogen 0.2 (NORMAL) E.U./dL (NORMAL) 10/05/21 14:20 Ur Leukocyte Esterase NEGATIVE (NEGATIVE) 10/05/21 14:20 Urine RBC 0-5 /HPF (0-5) 10/05/21 14:20 Urine WBC 0-3 /HPF (0-3) 10/05/21 14:20 Ur Squamous Epith Cells RARE Squamous (<= Few) 10/05/21 14:20 Urine Bacteria None Seen /HPF (None Seen) 10/05/21 14:20 Ur Microscopic Review INDICATED 10/05/21 14:20 Urine Culture Comments NOT INDICATED 10/05/21 14:20 Nasal Adenovirus (PCR) NOT DETECTED 10/05/21 14:00 Nasal B. parapertussis DNA (PCR) NOT DETECTED 10/05/21 14:00 Nasal Coronavir 229E PCR NOT DETECTED 10/05/21 14:00 Nasal Coronavir HKU1 PCR NOT DETECTED 10/05/21 14:00 Nasal Coronavir NL63 PCR NOT DETECTED 10/05/21 14:00 Nasal Coronavir OC43 PCR NOT DETECTED 10/05/21 14:00 Nasal Enterovir/Rhinovir PCR NOT DETECTED 10/05/21 14:00 Nasal Influenza B PCR NOT DETECTED 10/05/21 14:00 Nasal Influenza A PCR NOT DETECTED 10/05/21 14:00 Nasal Parainfluen 1 PCR NOT DETECTED 10/05/21 14:00 Nasal Parainfluen 2 PCR NOT DETECTED 10/05/21 14:00 Nasal Parainfluen 3 PCR NOT DETECTED 10/05/21 14:00 Nasal Parainfluen 4 PCR NOT DETECTED 10/05/21 14:00 Nasal RSV (PCR) NOT DETECTED 10/05/21 14:00 Nasal B.pertussis DNA PCR NOT DETECTED 10/05/21 14:00 Nasal C.pneumoniae (PCR) NOT DETECTED 10/05/21 14:00 Tarun Human Metapneumo PCR NOT DETECTED 10/05/21 14:00 Nasal M.pneumoniae (PCR) NOT DETECTED 10/05/21 14:00 Nasal SARS-CoV-2 (PCR) NOT DETECTED 10/05/21 14:00 Salicylates < 6.0 mg/dL 10/05/21 14:15 Urine Opiates Screen NEGATIVE (NEGATIVE) 10/05/21 14:20 Ur Oxycodone Screen NEGATIVE (NEGATIVE) 10/05/21 14:20 Urine Methadone Screen NEGATIVE (NEGATIVE) 10/05/21 14:20 Ur Propoxyphene Screen NEGATIVE (NEGATIVE) 10/05/21 14:20 Acetaminophen < 10 ug/mL (10-30) L 10/05/21 14:15 Ur Barbiturates Screen NEGATIVE (NEGATIVE) 10/05/21 14:20 Ur Tricyclics Screen NEGATIVE (NEGATIVE) 10/05/21 14:20 Ur Phencyclidine Scrn NEGATIVE (NEGATIVE) 10/05/21 14:20 Ur Amphetamine Screen NEGATIVE (NEGATIVE) 10/05/21 14:20 U Methamphetamines Scrn NEGATIVE (NEGATIVE) 10/05/21 14:20 U Benzodiazepines Scrn POSITIVE (NEGATIVE) H 10/05/21 14:20 Urine Cocaine Screen NEGATIVE (NEGATIVE) 10/05/21 14:20 U Cannabinoids Screen NEGATIVE (NEGATIVE) 10/05/21 14:20 Ethyl Alcohol 291.2 mg/dL 10/05/21 14:15 Serum Ketones SMALL (NEGATIVE) H 10/05/21 14:15 ABX Reporting Has patient been on IV antibiotics over the past 48 hours?: No Current Medications - Current Medications Current Medications: Active Medications Acetaminophen (Acetaminophen 325 Mg Tablet) 650 mg PO Q4HR PRN PRN Reason: Pain 1 to 4 Last Admin: 10/08/21 12:17 Dose: 650 mg Chlordiazepoxide HCl (Chlordiazepoxide 25 Mg Capsule) 25 mg PO Q12H [facility] Potassium Chloride/Dextrose/Sod Cl (D5.45ns W/20 Meq Kcl) 1,000 mls @ 100 mls/hr IV .Q10H [facility] Last Admin: 10/08/21 05:38 Dose: 100 mls/hr Lorazepam (Lorazepam 2 Mg/Ml Vial) 2 mg IVP Q1H PRN; Protocol PRN Reason: CIWA >8 Last Admin: 10/08/21 08:42 Dose: 2 mg Ondansetron HCl (Ondansetron 4 Mg/2 Ml Vial) 4 mg IVP Q6HR PRN PRN Reason: Nausea / Vomiting Last Admin: 10/08/21 08:42 Dose: 4 mg Pantoprazole Sodium (Pantoprazole 40 Mg Tablet) 40 mg PO QDAC [facility] Last Admin: 10/08/21 05:40 Dose: 40 mg Multivit/Folic Acid/Iron ( Vitamin Tablet) 1 tab PO DAILYWM [facility] Last Admin: 10/08/21 09:31 Dose: 1 tab Prochlorperazine Edisylate (Prochlorperazine 10 Mg/2 Ml Vial) 10 mg IVP Q6HR PRN PRN Reason: Nausea / Vomiting Last Admin: 10/07/21 04:59 Dose: 10 mg Sodium Chloride (Sodium Chloride Flush 0.9% 10 Ml Syringe) 10 ml IVP PRN PRN PRN Reason: NEEDED PER PROVIDER ORDERS Last Admin: 10/08/21 08:43 Dose: 10 ml Sodium Chloride (Sodium Chloride Flush 0.9% 10 Ml Syringe) 10 ml IVP 0100,0900,1700 [facility] Last Admin: 10/08/21 08:42 Dose: 10 ml Thiamine HCl (Thiamine 100 Mg Tablet) 100 mg PO DAILY [facility] Last Admin: 10/08/21 09:31 Dose: 100 mg traMADol [Ultram] 50 mg PO Q6H PRN 01/25/21 Alprazolam [Xanax] 0.25 mg PO QPM PRN 10/06/21 Omeprazole Magnesium 20 mg PO DAILY 10/06/21
[2021-10-09] MEDS: PROCHLORPERAZINE 10 MG/2 ML VIAL IVP PRN ×3 (02:05→16:37)
[2021-10-09] MEDS: D5.45NS W/20 MEQ KCL 1,000 ML IV SCH (02:06)
[2021-10-09] MEDS: SODIUM CHLORIDE FLUSH 0.9% 10 ML SYRINGE IVP SCH ×3 (02:07→20:00)
[2021-10-09] MEDS: LORazepam 2 MG/ML VIAL IVP PRN ×5 (03:45→16:36)
[2021-10-09] MEDS: ONDANSETRON 4 MG/2 ML VIAL IVP PRN ×2 (05:00→11:51)
[2021-10-09 05:58] LABS: BASOPHILS % (AUTO) 0.6 %; EOSINOPHILS # (AUTO) 0.1 10^3/uL (0.0-0.7); EOSINOPHILS % (AUTO) 1.1 %; HCT - HEMATOCRIT 40.5 % (42.0-52.0); HGB - HEMOGLOBIN 14.6 g/dL (14.0-18.0); LYMPHOCYTES % (AUTO) 19.1 %; MEAN CORPUSCULAR HEMOGLOBIN 35.1 pg (27.0-31.0); MEAN CORPUSCULAR VOLUME 97.4 fL (80.0-94.0); MONOCYTES # (AUTO) 0.7 10^3/uL (0.0-1.0); MONOCYTES % (AUTO) 12.4 %; NEUTROPHILS # (AUTO) 3.6 10^3/uL (1.5-6.6); NEUTROPHILS % (AUTO) 66.4 %; PLT - PLATELET COUNT 85 10^3/uL (130-450); RED BLOOD COUNT 4.16 10^6/uL (4.70-6.10); RED CELL DISTRIBUTION WIDTH 12.1 % (12.0-15.0); WHITE BLOOD COUNT 5.4 x10^3/uL (4.8-10.8)
[2021-10-09] MEDS ORDERED: chlordiazePOXIDE 25 MG CAPSULE PO SCH ×3 (06:00→17:00)
[2021-10-09] MEDS: PANTOPRAZOLE 40 MG TABLET PO SCH (06:11)
[2021-10-09 06:14] LABS: KETONES, SERUM (ACETEST) NEGATIVE (NEGATIVE)
[2021-10-09 06:15] LABS: ALBUMIN 3.9 g/dL (3.2-5.5); ALBUMIN/GLOBULIN RATIO 1.5 (1.0-2.2); ALKALINE PHOSPHATASE 74 IU/L (42-121); ALT ALANINE AMINOTRANSFERASE 62 IU/L (10-60); AST ASPARTATE AMINOTRANSFERASE 49 IU/L (10-42); BILIRUBIN,TOTAL 0.7 mg/dL (0.2-1.0); BUN - BLOOD UREA NITROGEN < 5 mg/dL (6-20); CALCIUM 9.5 mg/dL (8.5-10.3); CARBON DIOXIDE - CO2 24 mmol/L (21-32); CHLORIDE 98 mmol/L (101-111); CREATININE 0.7 mg/dL (0.6-1.2); GFR - MDRD 119 (>89); GLUCOSE 121 mg/dL (70-100); POTASSIUM 3.8 mmol/L (3.5-5.0); SODIUM 132 mmol/L (135-145); TOTAL PROTEIN 6.5 g/dL (6.7-8.2)
[2021-10-09] MEDS: ACETAMINOPHEN 325 MG TABLET PO PRN ×2 (08:18→16:36)
[2021-10-09] MEDS: PRENATAL VITAMIN TABLET PO SCH (08:18)
[2021-10-09] MEDS: THIAMINE 100 MG TABLET PO SCH (08:19)
--- NOTE | 2021-10-09 09:14 | XRAY Report ---
PROCEDURE: Foot 2 View LT INDICATIONS: pain, swelling TECHNIQUE: 3 views of the foot were acquired. COMPARISON: None FINDINGS: Bones: No fractures or dislocations. No suspicious bony lesions. Soft tissues: No tibiotalar joint effusion. Achilles tendon appears normal. IMPRESSION: No visualized acute fracture or dislocation. However, occult injury cannot be excluded. Recommend ren rt interval imaging follow-up in 7-10 days as clinically indicated for additional evaluation. Reviewed by: Emilia Dahl MD on 10/09/2021 9:12 AM [facility] Approved by: Emilia Dahl MD on 10/09/2021 9:12 AM [facility] Station ID: [id number]
[2021-10-09] MEDS: SODIUM CHLORIDE 0.9% 1,000 ML IV SCH ×2 (09:35→20:32)
[2021-10-09] MEDS: oxyCODONE 5 MG TABLET PO PRN ×2 (11:51→16:36)
[2021-10-09] MEDS ORDERED: MAGNESIUM SULFATE 2 GRAM 2 GM/50 ML BAG IV ONE (12:30)
--- NOTE | 2021-10-09 12:38 | PROVIDER PROGRESS NOTE ---
Assessment/Plan - Problem List (1) Alcohol withdrawal Assessment/Plan: 10/09. pt still present withdrawal symptoms, with tremor and shaking, HR is 105 at tele now. increase Librium dosage, continue ativan IV PRN, continue CIWA protocol (2) Alcohol intoxication Conclusion/Plan: 10/09 pt still has poor appetite now, continue CIWA protocol, IVF, continue , Vitamin B1 PO now. strongly advise pt again for quit of alcohol. this is pt's pt medical problem for over 5 yrs per pt's ex- report. DCR is involved, and social media designer is consulted. continue D5 1/2 NS with k, bannan bag with IV of vitamin B1, CIWA protocol. because pt has mild respiratory distress, he had somnolent before although now he is alert. Reduce to 1mg Ativan per Q1H PRN for alcohol withdrawal. we may adjust as pt's need. (3) Hypoxia Conclusion/Plan: 10/08 resolved pt need 4 liter of O2 and have 98% O2 sat, Patient does not present acute R espiratory distress. CXR reveal no acute Abnormality. It is likely from patient's alcohol intoxication and somnolent. ABGs reveals normal PH, fair respiratory status. Cause usage of sedation medication, Continue oxygen supplement as needed and pvc monitor (4) Alcoholic ketoacidosis Conclusion/Plan: 10/09 resolved 10/08 likely resolved, will recheck. pt had no nausea or vomiting now, and ask regular diet but remain poor appetite now. Serum reveal small ketones, It is likely from patient alcohol intoxication and nausea and vomiting. IV of D5 1/2 NS with K, Continue banana bag, Continue laboratory monitoring, Continue glucose check (5) Hypokalemia Conclusion/Plan: 10/08 resolved Potassium 2.5, it is likely caused by nausea and vomiting, and poor oral intake. replace and lab monitor. pt's Magnesium and phosphorus is at a normal range. (6) Elevated lactic acid level Conclusion/Plan: 10/08 resolved likely caused by patient's alcohol intoxication. ABGs show normal PH. 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 Patient had a elevated liver enzyme, likely caused by Acute alcohol intoxication. continue IVF, and lab monitor (9) Gravely disabled Conclusion/Plan: pt's ex- report pt is living with her but his room is covered in feces and urine. DCR is involved the care for pt. social media designer is consulted. DCR would be involuntarily detain him for gravely disabled if pt could be medical clear (10) Acute sinusitis Conclusion/Plan: Patient's report pt had "bad" sinus infection, hope to be treated. CT of head reveal acute sinusitis. add Rocephin IV for pt now. (11)thrombocytopenia improved, today his Platelet is 85. it is likely caused by his alcoholic liver disease, continue lab monitor now. - Current Meds Current Meds: Current Medications Generic Name Dose Route Start Last Admin Trade Name Freq PRN Reason Stop Dose Admin Acetaminophen 650 mg 10/05/21 16:24 10/09/21 08:18 Acetaminophen 325 Mg Tablet PO 650 mg Q4HR PRN Administration Pain 1 to 4 Sodium Chloride 1,000 mls @ 100 mls/hr 10/09/21 09:00 10/09/21 09:35 Normal Saline 0.9% IV 10/10/21 04:59 100 mls/hr .Q10H PRATEEK Administration Lorazepam 2 mg 10/06/21 01:38 10/09/21 11:59 Lorazepam 2 Mg/Ml Vial IVP 2 mg Q1H PRN Administration CIWA >8 Protocol Ondansetron HCl 4 mg 10/05/21 16:24 10/09/21 11:51 Ondansetron 4 Mg/2 Ml Vial IVP 4 mg Q6HR PRN Administration Nausea / Vomiting Oxycodone HCl 5 mg 10/09/21 08:38 10/09/21 11:51 Oxycodone 5 Mg Tablet PO 5 mg Q4HR PRN Administration PAIN Pantoprazole Sodium 40 mg 10/07/21 07:00 10/09/21 06:11 Pantoprazole 40 Mg Tablet PO 40 mg QDAC PRATEEK Administration Multivit/Folic Acid/Iron 1 tab 10/07/21 08:00 10/09/21 08:18 Vitamin Tablet PO 1 tab DAILYWM PRATEEK Administration Prochlorperazine Edisylate 10 mg 10/06/21 17:31 10/09/21 08:17 Prochlorperazine 10 Mg/2 Ml Vial IVP 10 mg Q6HR PRN Administration Nausea / Vomiting Sodium Chloride 10 ml 10/05/21 16:19 10/08/21 16:21 Sodium Chloride Flush 0.9% 10 Ml Syringe IVP 10 ml PRN PRN Administration NEEDED PER PROVIDER ORDERS Sodium Chloride 10 ml 10/05/21 17:00 10/09/21 08:15 Sodium Chloride Flush 0.9% 10 Ml Syringe IVP 10 ml 0100,0900,1700 PRATEEK Administration Thiamine HCl 100 mg 10/07/21 09:00 10/09/21 08:19 Thiamine 100 Mg Tablet PO 100 mg DAILY PRATEEK Administration - Lab Result Fish Bone Diagrams: 10/09/21 05:50 10/09/21 05:50 - Additional Planning My Orders: My Active Orders 10/09/21 08:38 oxyCODONE [Roxicodone] 5 mg PO Q4HR PRN 10/09/21 09:00 Sodium Chloride 0.9% [Normal Saline 0.9%] 1,000 ml IV 100 mls/hr 10/09/21 12:30 MAGNESIUM SULFATE 2 GRAMS IV X1 Magnesium Sulfate 2 Gram [Magnesium Sulfate] 2 gm in 50 ml IV ONCE 10/09/21 13:00 chlordiazePOXIDE [Librium] 25 mg PO Q8H 10/10/21 05:00 CBC - COMP BLD CT W/AUTO DIFF [HEME] DAILYLAB CMP [COMPREHENSIVE METABOLIC PANEL] [CHEM] DAILYLAB 10/11/21 05:00 CBC - COMP BLD CT W/AUTO DIFF [HEME] DAILYLAB CMP [COMPREHENSIVE METABOLIC PANEL] [CHEM] DAILYLAB Subjective - Subjective Nursing Reports: Confused Objective Vital Signs: Vital Signs - 24 hr 10/08/21 10/08/21 10/08/21 16:39 21:00 23:23 Temperature 36.4 C L 36.4 C L 36.2 C L Heart Rate [ 91 82 90 Brachial] Heart Rate [ Monitoring electrodes] Respiratory 20 18 16 Rate Blood Pressure 116/91 H [Left Brachial artery] Blood Pressure 154/96 H 134/79 H [Right Brachial artery] O2 Saturation 99 100 10/09/21 10/09/21 10/09/21 04:31 07:22 11:53 Temperature 36.3 C L 36.4 C L Heart Rate [ 108 H 112 H Brachial] Heart Rate [ 131 H Monitoring electrodes] Respiratory 18 20 19 Rate Blood Pressure 150/92 H 146/90 H 169/94 H [Left Brachial artery] Blood Pressure [Right Brachial artery] O2 Saturation 98 96 97 Oxygen O2 Source Room air I&O (Last 24 Hrs): Intake and Output Totals x24h 10/07/21 10/08/21 10/09/21 23:59 23:59 23:59 Intake Total 9691.25 7288 4183 Output Total 9775 8750 3800 Balance -83.75 -1462 383 General: Alert, Mild distress HEENT: Atraumatic Neck: Supple Lymphatic: no adenopathy Neuro: Alert, Non Focal Cardiovascular: Regular rate, Normal S1, Normal S2 Respiratory: Chest non-tender, No respiratory distress Abdomen: Normal bowel sounds, Soft Extremities: Normal pulses - Results Results: Laboratory Results WBC 5.4 x10^3/uL (4.8-10.8) 10/09/21 05:50 RBC 4.16 10^6/uL (4.70-6.10) L 10/09/21 05:50 Hgb 14.6 g/dL (14.0-18.0) 10/09/21 05:50 Hct 40.5 % (42.0-52.0) L 10/09/21 05:50 MCV 97.4 fL (80.0-94.0) H 10/09/21 05:50 MCH 35.1 pg (27.0-31.0) H 10/09/21 05:50 MCHC 36.0 g/dL (32.0-36.0) 10/09/21 05:50 RDW 12.1 % (12.0-15.0) 10/09/21 05:50 Plt Count 85 10^3/uL (130-450) L 10/09/21 05:50 MPV 10.0 fL (7.4-11.4) 10/09/21 05:50 Neut # (Auto) 3.6 10^3/uL (1.5-6.6) 10/09/21 05:50 Lymph # (Auto) 1.0 10^3/uL (1.5-3.5) L 10/09/21 05:50 [place] # (Auto) 0.7 10^3/uL (0.0-1.0) 10/09/21 05:50 Eos # (Auto) 0.1 10^3/uL (0.0-0.7) 10/09/21 05:50 Baso # (Auto) 0.0 10^3/uL (0.0-0.1) 10/09/21 05:50 Absolute Nucleated RBC 0.00 x10^3/uL 10/09/21 05:50 Nucleated RBC % 0.0 /100WBC 10/09/21 05:50 PT 12.0 secs (9.9-12.6) 10/05/21 17:56 INR 1.1 (0.8-1.2) 10/05/21 17:56 Bld Gas Analysis Time 1749 10/05/21 17:40 Sample Site LEFT RADIAL 10/05/21 17:40 ABG pH 7.43 (7.35-7.45) 10/05/21 17:40 ABG pCO2 38 mmHg (34-45) 10/05/21 17:40 ABG pO2 72 mmHg (80-100) L 10/05/21 17:40 ABG HCO3 24.8 mmol/L (22.0-26.0) 10/05/21 17:40 ABG Total CO2 26.0 MMOL/L (21.0-29.0) 10/05/21 17:40 ABG O2 Saturation 92 % (94-98) L 10/05/21 17:40 ABG Base Excess 0.7 mmol/L (-2.0-3.0) 10/05/21 17:40 Wilberto Test POSITIVE 10/05/21 17:40 Room Air YES 10/05/21 17:40 Sodium 132 mmol/L (135-145) L 10/09/21 05:50 Potassium 3.8 mmol/L (3.5-5.0) 10/09/21 05:50 Chloride 98 mmol/L (101-111) L 10/09/21 05:50 Carbon Dioxide 24 mmol/L (21-32) 10/09/21 05:50 Anion Gap 10.0 (6-13) 10/09/21 05:50 BUN < 5 mg/dL (6-20) L 10/09/21 05:50 Creatinine 0.7 mg/dL (0.6-1.2) 10/09/21 05:50 Estimated GFR (MDRD) 119 (>89) 10/09/21 05:50 Glucose 121 mg/dL (70-100) H 10/09/21 05:50 Lactic Acid 1.0 mmol/L (0.5-2.2) 10/06/21 08:24 Calcium 9.5 mg/dL (8.5-10.3) 10/09/21 05:50 Phosphorus 2.5 mg/dL (2.5-4.6) 10/05/21 14:15 Magnesium 1.6 mg/dL (1.7-2.8) L 10/09/21 05:50 Total Bilirubin 0.7 mg/dL (0.2-1.0) 10/09/21 05:50 AST 49 IU/L (10-42) H 10/09/21 05:50 ALT 62 IU/L (10-60) H 10/09/21 05:50 Alkaline Phosphatase 74 IU/L (42-121) 10/09/21 05:50 Ammonia 16.2 umol/L (7-35) 10/08/21 09:47 Total Protein 6.5 g/dL (6.7-8.2) L 10/09/21 05:50 Albumin 3.9 g/dL (3.2-5.5) 10/09/21 05:50 Globulin 2.6 g/dL (2.1-4.2) 10/09/21 05:50 Albumin/Globulin Ratio 1.5 (1.0-2.2) 10/09/21 05:50 Lipase 80 U/L (22-51) H 10/05/21 14:15 TSH 0.39 uIU/mL (0.34-5.60) 10/05/21 14:15 Urine Color YELLOW 10/05/21 14:20 Urine Clarity CLEAR (CLEAR) 10/05/21 14:20 Urine pH 6.0 PH (5.0-7.5) 10/05/21 14:20 Ur Specific [place] 1.025 (1.002-1.030) 10/05/21 14:20 Urine Protein 30 mg/dL (NEGATIVE) H 10/05/21 14:20 Urine Glucose (UA) NEGATIVE mg/dL (NEGATIVE) 10/05/21 14:20 Urine Ketones 40 mg/dL (NEGATIVE) H 10/05/21 14:20 Urine Occult Blood SMALL (NEGATIVE) H 10/05/21 14:20 Urine Nitrite NEGATIVE (NEGATIVE) 10/05/21 14:20 Urine Bilirubin NEGATIVE (NEGATIVE) 10/05/21 14:20 Urine Urobilinogen 0.2 (NORMAL) E.U./dL (NORMAL) 10/05/21 14:20 Ur Leukocyte Esterase NEGATIVE (NEGATIVE) 10/05/21 14:20 Urine RBC 0-5 /HPF (0-5) 10/05/21 14:20 Urine WBC 0-3 /HPF (0-3) 10/05/21 14:20 Ur Squamous Epith Cells RARE Squamous (<= Few) 10/05/21 14:20 Urine Bacteria None Seen /HPF (None Seen) 10/05/21 14:20 Ur Microscopic Review INDICATED 10/05/21 14:20 Urine Culture Comments NOT INDICATED 10/05/21 14:20 Nasal Adenovirus (PCR) NOT DETECTED 10/05/21 14:00 Nasal B. parapertussis DNA (PCR) NOT DETECTED 10/05/21 14:00 Nasal Coronavir 229E PCR NOT DETECTED 10/05/21 14:00 Nasal Coronavir HKU1 PCR NOT DETECTED 10/05/21 14:00 Nasal Coronavir NL63 PCR NOT DETECTED 10/05/21 14:00 Nasal Coronavir OC43 PCR NOT DETECTED 10/05/21 14:00 Nasal Enterovir/Rhinovir PCR NOT DETECTED 10/05/21 14:00 Nasal Influenza B PCR NOT DETECTED 10/05/21 14:00 Nasal Influenza A PCR NOT DETECTED 10/05/21 14:00 Nasal Parainfluen 1 PCR NOT DETECTED 10/05/21 14:00 Nasal Parainfluen 2 PCR NOT DETECTED 10/05/21 14:00 Nasal Parainfluen 3 PCR NOT DETECTED 10/05/21 14:00 Nasal Parainfluen 4 PCR NOT DETECTED 10/05/21 14:00 Nasal RSV (PCR) NOT DETECTED 10/05/21 14:00 Nasal B.pertussis DNA PCR NOT DETECTED 10/05/21 14:00 Nasal C.pneumoniae (PCR) NOT DETECTED 10/05/21 14:00 Tarun Human Metapneumo PCR NOT DETECTED 10/05/21 14:00 Nasal M.pneumoniae (PCR) NOT DETECTED 10/05/21 14:00 Nasal SARS-CoV-2 (PCR) NOT DETECTED 10/05/21 14:00 Salicylates < 6.0 mg/dL 10/05/21 14:15 Urine Opiates Screen NEGATIVE (NEGATIVE) 10/05/21 14:20 Ur Oxycodone Screen NEGATIVE (NEGATIVE) 10/05/21 14:20 Urine Methadone Screen NEGATIVE (NEGATIVE) 10/05/21 14:20 Ur Propoxyphene Screen NEGATIVE (NEGATIVE) 10/05/21 14:20 Acetaminophen < 10 ug/mL (10-30) L 10/05/21 14:15 Ur Barbiturates Screen NEGATIVE (NEGATIVE) 10/05/21 14:20 Ur Tricyclics Screen NEGATIVE (NEGATIVE) 10/05/21 14:20 Ur Phencyclidine Scrn NEGATIVE (NEGATIVE) 10/05/21 14:20 Ur Amphetamine Screen NEGATIVE (NEGATIVE) 10/05/21 14:20 U Methamphetamines Scrn NEGATIVE (NEGATIVE) 10/05/21 14:20 U Benzodiazepines Scrn POSITIVE (NEGATIVE) H 10/05/21 14:20 Urine Cocaine Screen NEGATIVE (NEGATIVE) 10/05/21 14:20 U Cannabinoids Screen NEGATIVE (NEGATIVE) 10/05/21 14:20 Ethyl Alcohol 291.2 mg/dL 10/05/21 14:15 Serum Ketones NEGATIVE (NEGATIVE) 10/09/21 05:50 ABX Reporting Has patient been on IV antibiotics over the past 48 hours?: No Current Medications - Current Medications Current Medications: Active Medications Acetaminophen (Acetaminophen 325 Mg Tablet) 650 mg PO Q4HR PRN PRN Reason: Pain 1 to 4 Last Admin: 10/09/21 08:18 Dose: 650 mg Chlordiazepoxide HCl (Chlordiazepoxide 25 Mg Capsule) 25 mg PO Q8H PRATEEK Sodium Chloride (Normal Saline 0.9%) 1,000 mls @ 100 mls/hr IV .Q10H PRATEEK Stop: 10/10/21 04:59 Last Admin: 10/09/21 09:35 Dose: 100 mls/hr Magnesium Sulfate (Magnesium Sulfate) 2 gm in 50 mls @ 50 mls/hr IV ONCE ONE Stop: 10/09/21 13:29 Lorazepam (Lorazepam 2 Mg/Ml Vial) 2 mg IVP Q1H PRN; Protocol PRN Reason: CIWA >8 Last Admin: 10/09/21 11:59 Dose: 2 mg Ondansetron HCl (Ondansetron 4 Mg/2 Ml Vial) 4 mg IVP Q6HR PRN PRN Reason: Nausea / Vomiting Last Admin: 10/09/21 11:51 Dose: 4 mg Oxycodone HCl (Oxycodone 5 Mg Tablet) 5 mg PO Q4HR PRN PRN Reason: PAIN Last Admin: 10/09/21 11:51 Dose: 5 mg Pantoprazole Sodium (Pantoprazole 40 Mg Tablet) 40 mg PO QDAC [facility] Last Admin: 10/09/21 06:11 Dose: 40 mg Multivit/Folic Acid/Iron ( Vitamin Tablet) 1 tab PO DAILYWM [facility] Last Admin: 10/09/21 08:18 Dose: 1 tab Prochlorperazine Edisylate (Prochlorperazine 10 Mg/2 Ml Vial) 10 mg IVP Q6HR PRN PRN Reason: Nausea / Vomiting Last Admin: 10/09/21 08:17 Dose: 10 mg Sodium Chloride (Sodium Chloride Flush 0.9% 10 Ml Syringe) 10 ml IVP PRN PRN PRN Reason: NEEDED PER PROVIDER ORDERS Last Admin: 10/08/21 16:21 Dose: 10 ml Sodium Chloride (Sodium Chloride Flush 0.9% 10 Ml Syringe) 10 ml IVP 0100,090 0,1700 [facility] Last Admin: 10/09/21 08:15 Dose: 10 ml Thiamine HCl (Thiamine 100 Mg Tablet) 100 mg PO DAILY [facility] Last Admin: 10/09/21 08:19 Dose: 100 mg traMADol [Ultram] 50 mg PO Q6H PRN 01/25/21 Alprazolam [Xanax] 0.25 mg PO QPM PRN 10/06/21 Omeprazole Magnesium 20 mg PO DAILY 10/06/21
[2021-10-09] MEDS: chlordiazePOXIDE 25 MG CAPSULE PO SCH ×3 (13:20→20:32)
[2021-10-09] MEDS: SODIUM CHLORIDE FLUSH 0.9% 10 ML SYRINGE IVP PRN (13:33)
[2021-10-10] MEDS: SODIUM CHLORIDE FLUSH 0.9% 10 ML SYRINGE IVP SCH ×3 (02:01→16:16)
[2021-10-10] MEDS: chlordiazePOXIDE 25 MG CAPSULE PO SCH ×3 (02:47→16:15)
[2021-10-10] MEDS: PANTOPRAZOLE 40 MG TABLET PO SCH (05:54)
[2021-10-10] MEDS: THIAMINE 100 MG TABLET PO SCH (08:10)
[2021-10-10] MEDS: PRENATAL VITAMIN TABLET PO SCH (08:10)
[2021-10-10 09:06] LABS: BASOPHILS % (AUTO) 0.6 %; EOSINOPHILS # (AUTO) 0.1 10^3/uL (0.0-0.7); EOSINOPHILS % (AUTO) 1.5 %; HCT - HEMATOCRIT 39.5 % (42.0-52.0); HGB - HEMOGLOBIN 13.7 g/dL (14.0-18.0); LYMPHOCYTES # (AUTO) 0.9 10^3/uL (1.5-3.5); LYMPHOCYTES % (AUTO) 26.5 %; MEAN CORPUSCULAR HEMOGLOBIN 34.9 pg (27.0-31.0); MEAN CORPUSCULAR HGB CONC 34.7 g/dL (32.0-36.0); MEAN CORPUSCULAR VOLUME 100.8 fL (80.0-94.0); MEAN PLATELET VOLUME 9.3 fL (7.4-11.4); MONOCYTES # (AUTO) 0.5 10^3/uL (0.0-1.0); MONOCYTES % (AUTO) 16.4 %; NEUTROPHILS # (AUTO) 1.8 10^3/uL (1.5-6.6); NEUTROPHILS % (AUTO) 54.7 %; PLT - PLATELET COUNT 105 10^3/uL (130-450); RED BLOOD COUNT 3.92 10^6/uL (4.70-6.10); RED CELL DISTRIBUTION WIDTH 12.7 % (12.0-15.0); WHITE BLOOD COUNT 3.2 x10^3/uL (4.8-10.8)
[2021-10-10 09:27] LABS: ALBUMIN 3.7 g/dL (3.2-5.5); ALBUMIN/GLOBULIN RATIO 1.5 (1.0-2.2); ALKALINE PHOSPHATASE 70 IU/L (42-121); ALT ALANINE AMINOTRANSFERASE 50 IU/L (10-60); AST ASPARTATE AMINOTRANSFERASE 37 IU/L (10-42); BILIRUBIN,TOTAL 0.9 mg/dL (0.2-1.0); BUN - BLOOD UREA NITROGEN < 5 mg/dL (6-20); CARBON DIOXIDE - CO2 28 mmol/L (21-32); CHLORIDE 99 mmol/L (101-111); CREATININE 0.7 mg/dL (0.6-1.2); GFR - MDRD 119 (>89); GLUCOSE 131 mg/dL (70-100); POTASSIUM 3.7 mmol/L (3.5-5.0); SODIUM 136 mmol/L (135-145); TOTAL PROTEIN 6.2 g/dL (6.7-8.2)
[2021-10-10] MEDS: ACETAMINOPHEN 325 MG TABLET PO PRN ×3 (12:10→20:53)
--- NOTE | 2021-10-10 15:08 | PROVIDER PROGRESS NOTE ---
Assessment/Plan - Problem List (1) Alcohol withdrawal Assessment/Plan: 10/10 improved from yesterday, less tremor. gradually reduce Librium to tid, continue CIWA protocol. 10/09. pt still present withdrawal symptoms, with tremor and shaking, HR is 105 at tele now. increase Librium dosage, continue ativan IV PRN, continue CIWA protocol (2) Alcohol intoxication Conclusion/Plan: 10/09 pt still has poor appetite now, continue CIWA protocol, IVF, continue , Vitamin B1 PO now. strongly advise pt again for quit of alcohol. this is pt's pt medical problem for over 5 yrs per pt's ex- report. DCR is involved, and social services aide is consulted. continue D5 1/2 NS with k, bannan bag with IV of vitamin B1, CIWA protocol. because pt has mild respiratory distress, he had somnolent before although now he is alert. Reduce to 1mg Ativan per Q1H PRN for alcohol withdrawal. we may adjust as pt's need. (3) Hypoxia Conclusion/Plan: 10/08 resolved pt need 4 liter of O2 and have 98% O2 sat, Patient does not present acute Respiratory distress. CXR reveal no acute Abnormality. It is likely from patient's alcohol intoxication and somnolent. ABGs reveals normal PH, fair respiratory status. 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 pt had no nausea or vomiting now, and ask regular diet but remain poor appetite now. Serum reveal small ketones, It is likely from patient alcohol intoxication and nausea and vomiting. IV of D5 1/2 NS with K, Continue banana bag, Continue laboratory monitoring, Continue glucose check (5) Hypokalemia Conclusion/Plan: 10/08 resolved Potassium 2.5, it is likely caused by nausea and vomiting, and poor oral intake. replace and lab monitor. pt's Magnesium and phosphorus is at a normal range. (6) Elevated lactic acid level Conclusion/Plan: 10/08 resolved likely caused by patient's alcohol intoxication. ABGs show normal PH. 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 liver enzyme became normal arrange. 10/08 great improve. Patient had a elevated liver enzyme, likely caused by Acute alcohol intoxication. continue IVF, and lab monitor (9) Gravely disabled Conclusion/Plan: pt's ex- report pt is living with her but his room is covered in feces and urine. DCR is involved the care for pt. social services aide is consulted. DCR would be involuntarily detain him for gravely disabled if pt could be medical clear (10) Acute sinusitis Conclusion/Plan: Patient's report pt had "bad" sinus infection, hope to be treated. CT of head reveal acute sinusitis. add Rocephin IV for pt now. (11)thrombocytopenia improved, today his Platelet is 85. it is likely caused by his alcoholic liver disease, continue lab monitor now. - Current Meds Current Meds: Current Medications Generic Name Dose Route Start Last Admin Trade Name Freq PRN Reason Stop Dose Admin Acetaminophen 650 mg 10/05/21 16:24 10/10/21 12:10 Acetaminophen 325 Mg Tablet PO 650 mg Q4HR PRN Administration Pain 1 to 4 Lorazepam 2 mg 10/06/21 01:38 10/09/21 16:36 Lorazepam 2 Mg/Ml Vial IVP 2 mg Q1H PRN Administration CIWA >8 Protocol Ondansetron HCl 4 mg 10/05/21 16:24 10/09/21 11:51 Ondansetron 4 Mg/2 Ml Vial IVP 4 mg Q6HR PRN Administration Nausea / Vomiting Oxycodone HCl 5 mg 10/09/21 08:38 10/09/21 16:36 Oxycodone 5 Mg Tablet PO 5 mg Q4HR PRN Administration PAIN Pantoprazole Sodium 40 mg 10/07/21 07:00 10/10/21 05:54 Pantoprazole 40 Mg Tablet PO 40 mg QDAC PRATEEK Administration Multivit/Folic Acid/Iron 1 tab 10/07/21 08:00 10/10/21 08:10 Vitamin Tablet PO 1 tab DAILYWM PRATEEK Administration Prochlorperazine Edisylate 10 mg 10/06/21 17:31 10/09/21 16:37 Prochlorperazine 10 Mg/2 Ml Vial IVP 10 mg Q6HR PRN Administration Nausea / Vomiting Sodium Chloride 10 ml 10/05/21 16:19 10/09/21 13:33 Sodium Chloride Flush 0.9% 10 Ml Syringe IVP 10 ml PRN PRN Administration NEEDED PER PROVIDER ORDERS Sodium Chloride 10 ml 10/05/21 17:00 10/10/21 08:11 Sodium Chloride Flush 0.9% 10 Ml Syringe IVP 10 ml 0100,0900,1700 PRATEEK Administration Thiamine HCl 100 mg 10/07/21 09:00 10/10/21 08:10 Thiamine 100 Mg Tablet PO 100 mg DAILY PRATEEK Administration - Lab Result Fish Bone Diagrams: 10/10/21 08:55 10/10/21 08:55 - Additional Planning My Orders: My Active Orders 10/10/21 16:00 chlordiazePOXIDE [Librium] 25 mg PO Q8H 10/11/21 05:00 CBC - COMP BLD CT W/AUTO DIFF [HEME] DAILYLAB CMP [COMPREHENSIVE METABOLIC PANEL] [CHEM] DAILYLAB Subjective - Subjective Patient Reports: Resting Comfortably Objective Vital Signs: Vital Signs - 24 hr 10/09/21 10/09/21 10/09/21 16:42 20:38 23:35 Temperature 36.2 C L 36.5 C 36.5 C Heart Rate [ 109 H Brachial] Heart Rate [ 84 100 Monitoring electrodes] Respiratory 20 16 20 Rate Blood Pressure 138/83 H 116/71 [Left Brachial artery] Blood Pressure 145/98 H [Right Brachial artery] O2 Saturation 98 97 98 10/10/21 10/10/21 10/10/21 05:00 09:00 13:00 Temperature 36.5 C Heart Rate [ 103 H 96 Brachial] Heart Rate [ 101 H Monitoring electrodes] Respiratory 18 17 17 Rate Blood Pressure [Left Brachial artery] Blood Pressure 148/94 H 146/92 H 144/83 H [Right Brachial artery] O2 Saturation 100 98 97 Oxygen O2 Source Room air I&O (Last 24 Hrs): Intake and Output Totals x24h 10/08/21 10/09/21 10/10/21 23:59 23:59 23:59 Intake Total 7288 8098.000 1950 Output Total 8750 6650 3950 Balance -1462 1448.000 -2000 General: Alert, Cooperative, No acute distress HEENT: Atraumatic Neck: Supple Lymphatic: no adenopathy Neuro: Alert, Non Focal Cardiovascular: Regular rate, Normal S1, Normal S2 Respiratory: Chest non-tender, No respiratory distress Abdomen: Normal bowel sounds, Soft Extremities: Normal pulses - Results Results: Laboratory Results WBC 3.2 x10^3/uL (4.8-10.8) L 10/10/21 08:55 RBC 3.92 10^6/uL (4.70-6.10) L 10/10/21 08:55 Hgb 13.7 g/dL (14.0-18.0) L 10/10/21 08:55 Hct 39.5 % (42.0-52.0) L 10/10/21 08:55 MCV 100.8 fL (80.0-94.0) H 10/10/21 08:55 MCH 34.9 pg (27.0-31.0) H 10/10/21 08:55 MCHC 34.7 g/dL (32.0-36.0) 10/10/21 08:55 RDW 12.7 % (12.0-15.0) 10/10/21 08:55 Plt Count 105 10^3/uL (130-450) L 10/10/21 08:55 MPV 9.3 fL (7.4-11.4) 10/10/21 08:55 Neut # (Auto) 1.8 10^3/uL (1.5-6.6) 10/10/21 08:55 Lymph # (Auto) 0.9 10^3/uL (1.5-3.5) L 10/10/21 08:55 [place] # (Auto) 0.5 10^3/uL (0.0-1.0) 10/10/21 08:55 Eos # (Auto) 0.1 10^3/uL (0.0-0.7) 10/10/21 08:55 Baso # (Auto) 0.0 10^3/uL (0.0-0.1) 10/10/21 08:55 Absolute Nucleated RBC 0.00 x10^3/uL 10/10/21 08:55 Nucleated RBC % 0.0 /100WBC 10/10/21 08:55 PT 12.0 secs (9.9-12.6) 10/05/21 17:56 INR 1.1 (0.8-1.2) 10/05/21 17:56 Bld Gas Analysis Time 1749 10/05/21 17:40 Sample Site LEFT RADIAL 10/05/21 17:40 ABG pH 7.43 (7.35-7.45) 10/05/21 17:40 ABG pCO2 38 mmHg (34-45) 10/05/21 17:40 ABG pO2 72 mmHg (80-100) L 10/05/21 17:40 ABG HCO3 24.8 mmol/L (22.0-26.0) 10/05/21 17:40 ABG Total CO2 26.0 MMOL/L (21.0-29.0) 10/05/21 17:40 ABG O2 Saturation 92 % (94-98) L 10/05/21 17:40 ABG Base Excess 0.7 mmol/L (-2.0-3.0) 10/05/21 17:40 Wilberto Test POSITIVE 10/05/21 17:40 Room Air YES 10/05/21 17:40 Sodium 136 mmol/L (135-145) 10/10/21 08:55 Potassium 3.7 mmol/L (3.5-5.0) 10/10/21 08:55 Chloride 99 mmol/L (101-111) L 10/10/21 08:55 Carbon Dioxide 28 mmol/L (21-32) 10/10/21 08:55 Anion Gap 9.0 (6-13) 10/10/21 08:55 BUN < 5 mg/dL (6-20) L 10/10/21 08:55 Creatinine 0.7 mg/dL (0.6-1.2) 10/10/21 08:55 Estimated GFR (MDRD) 119 (>89) 10/10/21 08:55 Glucose 131 mg/dL (70-100) H 10/10/21 08:55 Lactic Acid 1.0 mmol/L (0.5-2.2) 10/06/21 08:24 Calcium 9.0 mg/dL (8.5-10.3) 10/10/21 08:55 Phosphorus 2.5 mg/dL (2.5-4.6) 10/05/21 14:15 Magnesium 1.6 mg/dL (1.7-2.8) L 10/09/21 05:50 Total Bilirubin 0.9 mg/dL (0.2-1.0) 10/10/21 08:55 AST 37 IU/L (10-42) 10/10/21 08:55 ALT 50 IU/L (10-60) 10/10/21 08:55 Alkaline Phosphatase 70 IU/L (42-121) 10/10/21 08:55 Ammonia 16.2 umol/L (7-35) 10/08/21 09:47 Total Protein 6.2 g/dL (6.7-8.2) L 10/10/21 08:55 Albumin 3.7 g/dL (3.2-5.5) 10/10/21 08:55 Globulin 2.5 g/dL (2.1-4.2) 10/10/21 08:55 Albumin/Globulin Ratio 1.5 (1.0-2.2) 10/10/21 08:55 Lipase 80 U/L (22-51) H 10/05/21 14:15 TSH 0.39 uIU/mL (0.34-5.60) 10/05/21 14:15 Urine Color YELLOW 10/05/21 14:20 Urine Clarity CLEAR (CLEAR) 10/05/21 14:20 Urine pH 6.0 PH (5.0-7.5) 10/05/21 14:20 Ur Specific [place] 1.025 (1.002-1.030) 10/05/21 14:20 Urine Protein 30 mg/dL (NEGATIVE) H 10/05/21 14:20 Urine Glucose (UA) NEGATIVE mg/dL (NEGATIVE) 10/05/21 14:20 Urine Ketones 40 mg/dL (NEGATIVE) H 10/05/21 14:20 Urine Occult Blood SMALL (NEGATIVE) H 10/05/21 14:20 Urine Nitrite NEGATIVE (NEGATIVE) 10/05/21 14:20 Urine Bilirubin NEGATIVE (NEGATIVE) 10/05/21 14:20 Urine Urobilinogen 0.2 (NORMAL) E.U./dL (NORMAL) 10/05/21 14:20 Ur Leukocyte Esterase NEGATIVE (NEGATIVE) 10/05/21 14:20 Urine RBC 0-5 /HPF (0-5) 10/05/21 14:20 Urine WBC 0-3 /HPF (0-3) 10/05/21 14:20 Ur Squamous Epith Cells RARE Squamous (<= Few) 10/05/21 14:20 Urine Bacteria None Seen /HPF (None Seen) 10/05/21 14:20 Ur Microscopic Review INDICATED 10/05/21 14:20 Urine Culture Comments NOT INDICATED 10/05/21 14:20 Nasal Adenovirus (PCR) NOT DETECTED 10/05/21 14:00 Nasal B. parapertussis DNA (PCR) NOT DETECTED 10/05/21 14:00 Nasal Coronavir 229E PCR NOT DETECTED 10/05/21 14:00 Nasal Coronavir HKU1 PCR NOT DETECTED 10/05/21 14:00 Nasal Coronavir NL63 PCR NOT DETECTED 10/05/21 14:00 Nasal Coronavir OC43 PCR NOT DETECTED 10/05/21 14:00 Nasal Enterovir/Rhinovir PCR NOT DETECTED 10/05/21 14:00 Nasal Influenza B PCR NOT DETECTED 10/05/21 14:00 Nasal Influenza A PCR NOT DETECTED 10/05/21 14:00 Nasal Parainfluen 1 PCR NOT DETECTED 10/05/21 14:00 Nasal Parainfluen 2 PCR NOT DETECTED 10/05/21 14:00 Nasal Parainfluen 3 PCR NOT DETECTED 10/05/21 14:00 Nasal Parainfluen 4 PCR NOT DETECTED 10/05/21 14:00 Nasal RSV (PCR) NOT DETECTED 10/05/21 14:00 Nasal B.pertussis DNA PCR NOT DETECTED 10/05/21 14:00 Nasal C.pneumoniae (PCR) NOT DETECTED 10/05/21 14:00 Tarun Human Metapneumo PCR NOT DETECTED 10/05/21 14:00 Nasal M.pneumoniae (PCR) NOT DETECTED 10/05/21 14:00 Nasal SARS-CoV-2 (PCR) NOT DETECTED 10/05/21 14:00 Salicylates < 6.0 mg/dL 10/05/21 14:15 Urine Opiates Screen NEGATIVE (NEGATIVE) 10/05/21 14:20 Ur Oxycodone Screen NEGATIVE (NEGATIVE) 10/05/21 14:20 Urine Methadone Screen NEGATIVE (NEGATIVE) 10/05/21 14:20 Ur Propoxyphene Screen NEGATIVE (NEGATIVE) 10/05/21 14:20 Acetaminophen < 10 ug/mL (10-30) L 10/05/21 14:15 Ur Barbiturates Screen NEGATIVE (NEGATIVE) 10/05/21 14:20 Ur Tricyclics Screen NEGATIVE (NEGATIVE) 10/05/21 14:20 Ur Phencyclidine Scrn NEGATIVE (NEGATIVE) 10/05/21 14:20 Ur Amphetamine Screen NEGATIVE (NEGATIVE) 10/05/21 14:20 U Methamphetamines Scrn NEGATIVE (NEGATIVE) 10/05/21 14:20 U Benzodiazepines Scrn POSITIVE (NEGATIVE) H 10/05/21 14:20 Urine Cocaine Screen NEGATIVE (NEGATIVE) 10/05/21 14:20 U Cannabinoids Screen NEGATIVE (NEGATIVE) 10/05/21 14:20 Ethyl Alcohol 291.2 mg/dL 10/05/21 14:15 Serum Ketones NEGATIVE (NEGATIVE) 10/09/21 05:50 ABX Reporting Has patient been on IV antibiotics over the past 48 hours?: No Current Medications - Current Medications Current Medications: Active Medications Acetaminophen (Acetaminophen 325 Mg Tablet) 650 mg PO Q4HR PRN PRN Reason: Pain 1 to 4 Last Admin: 10/10/21 12:10 Dose: 650 mg Chlordiazepoxide HCl (Chlordiazepoxide 25 Mg Capsule) 25 mg PO Q8H PRATEEK Lorazepam (Lorazepam 2 Mg/Ml Vial) 2 mg IVP Q1H PRN; Protocol PRN Reason: CIWA >8 Last Admin: 10/09/21 16:36 Dose: 2 mg Ondansetron HCl (Ondansetron 4 Mg/2 Ml Vial) 4 mg IVP Q6HR PRN PRN Reason: Nausea / Vomiting Last Admin: 10/09/21 11:51 Dose: 4 mg Oxycodone HCl (Oxycodone 5 Mg Tablet) 5 mg PO Q4HR PRN PRN Reason: PAIN Last Admin: 10/09/21 16:36 Dose: 5 mg Pantoprazole Sodium (Pantoprazole 40 Mg Tablet) 40 mg PO QDAC [facility] Last Admin: 10/10/21 05:54 Dose: 40 mg Multivit/Folic Acid/Iron ( Vitamin Tablet) 1 tab PO DAILYWM [facility] Last Admin: 10/10/21 08:10 Dose: 1 tab Prochlorperazine Edisylate (Prochlorperazine 10 Mg/2 Ml Vial) 10 mg IVP Q6HR PRN PRN Reason: Nausea / Vomiting Last Admin: 10/09/21 16:37 Dose: 10 mg Saccharomyces Boulardii (Saccharomyces Boulardii 250 Mg Capsule) 250 mg PO BIDWM [facility] Sodium Chloride (Sodium Chloride Flush 0.9% 10 Ml Syringe) 10 ml IVP PRN PRN PRN Reason: NEEDED PER PROVIDER ORDERS Last Admin: 10/09/21 13:33 Dose: 10 ml Sodium Chloride (Sodium Chloride Flush 0.9% 10 Ml Syringe) 10 ml IVP 0100,0900,1700 [facility] Last Admin: 10/10/21 08:11 Dose: 10 ml Thiamine HCl (Thiamine 100 Mg Tablet) 100 mg PO DAILY [facility] Last Admin: 10/10/21 08:10 Dose: 100 mg traMADol [Ultram] 50 mg PO Q6H PRN 01/25/21 Alprazolam [Xanax] 0.25 mg PO QPM PRN 10/06/21 Omeprazole Magnesium 20 mg PO DAILY 10/06/21
[2021-10-10] MEDS: oxyCODONE 5 MG TABLET PO PRN ×2 (16:15→20:53)
[2021-10-10] MEDS: SACCHAROMYCES BOULARDII 250 MG CAPSULE PO SCH (16:15)
[2021-10-11] MEDS: SODIUM CHLORIDE FLUSH 0.9% 10 ML SYRINGE IVP SCH ×2 (00:17→08:31)
[2021-10-11] MEDS: chlordiazePOXIDE 25 MG CAPSULE PO SCH ×2 (00:17→08:31)
[2021-10-11] MEDS: oxyCODONE 5 MG TABLET PO PRN (04:06)
[2021-10-11] MEDS: PANTOPRAZOLE 40 MG TABLET PO SCH (06:20)
[2021-10-11 06:25] LABS: EOSINOPHILS % (AUTO) 2.3 %; HCT - HEMATOCRIT 37.1 % (42.0-52.0); HGB - HEMOGLOBIN 12.8 g/dL (14.0-18.0); LYMPHOCYTES % (AUTO) 31.2 %; MEAN CORPUSCULAR HEMOGLOBIN 34.4 pg (27.0-31.0); MEAN CORPUSCULAR HGB CONC 34.5 g/dL (32.0-36.0); MEAN CORPUSCULAR VOLUME 99.7 fL (80.0-94.0); MEAN PLATELET VOLUME 9.3 fL (7.4-11.4); MONOCYTES % (AUTO) 20.5 %; NEUTROPHILS % (AUTO) 44.3 %; PLT - PLATELET COUNT 113 10^3/uL (130-450); RED BLOOD COUNT 3.72 10^6/uL (4.70-6.10); RED CELL DISTRIBUTION WIDTH 12.5 % (12.0-15.0)
[2021-10-11 06:31] LABS: ABNORMAL LYMPHS % (MANUAL) 0 %; BAND NEUTROPHILS % (MANUAL) 0 %
[2021-10-11 06:40] LABS: ALBUMIN 3.4 g/dL (3.2-5.5); ALBUMIN/GLOBULIN RATIO 1.4 (1.0-2.2); BILIRUBIN,TOTAL 0.7 mg/dL (0.2-1.0); CALCIUM 9.1 mg/dL (8.5-10.3); CREATININE 0.7 mg/dL (0.6-1.2); POTASSIUM 3.7 mmol/L (3.5-5.0); TOTAL PROTEIN 5.9 g/dL (6.7-8.2)
[2021-10-11 07:51] LABS: BASOPHILS # (MANUAL) 0.1 10^3/uL (0-0.1); BASOPHILS % (MANUAL) 3 %; DIFFERENTIAL COMMENT MANUAL DIFFERENTIAL; LYMPHOCYTES # (MANUAL) 1.3 10^3/uL (1.5-3.5); LYMPHOCYTES % (MANUAL) 42 %; MONOCYTES # (MANUAL) 0.5 10^3/uL (0.0-1.0); NEUTROPHILS # (MANUAL) 1.2 10^3/uL (1.5-6.6); PLATELET ESTIMATE, MANUAL DECREASED (<130,000) (NORMAL); WBC MORPHOLOGY (MULTIPLE) 2+ REACTIV (NORMAL)
[2021-10-11] MEDS: THIAMINE 100 MG TABLET PO SCH (08:31)
[2021-10-11] MEDS: PRENATAL VITAMIN TABLET PO SCH (08:31)
[2021-10-11] MEDS: SACCHAROMYCES BOULARDII 250 MG CAPSULE PO SCH (08:31)
[2021-10-11 17:15] VITALS: BP 142/91
--- NOTE | 2021-10-11 17:32 | Discharge Plan ---
Discharge Plan Problem Reviewed?: Yes Disposition: Home, Self Care Condition: Stable Prescriptions: chlordiazePOXIDE [Librium] 25 mg PO Q12H PRN #8 cap PRN Reason: Alcohol Withdrawal Pnv No.95/Ferrous Fum/Folic AC [ Tablet] 1 each PO DAILY #30 tablet Thiamine [Vitamin B-1] 100 mg PO DAILY #30 tablet Diet: Regular Activity Restrictions: Activity as Tolerated Shower Restrictions: No (fall precaution) Instruction Topics: ED Withdrawal Alcohol, Withdrawal Alcohol What Expect, Alcoholism Get Help, Alcoholism Info Family Friends Health Concerns: alcohol abuse Plan of Treatment: you really want to go to home on today. box worker help you find alcohol rehab for you, and you state you will go to alcohol rehab on next Thursday10/15/21. You are prescribed librium to help your alcohol withdrawal as needed. You are also prescribed and Vitamin B1 for you. Strongly advise you quit alcohol. Care Goals: Stabilization and improvement/resolve of your medical issues Assessment: Discussed care plan in detail with you, answered your questions, you understood and agreed Additional Instructions or Follow Up instructions: You may follow-up with your PCP in 1 week, go to alcohol rehab on next Thursday10/15/21. Should your symptoms return or worse, you may present to ER or call 911 for help. No Smoking: If you smoke, Please STOP! Call for help.
--- NOTE | 2021-10-11 17:43 | DISCHARGE SUMMARY ---
Discharge Summary Admit Date: 10/05/21 Discharge Date: 10/11/21 Discharging Provider: Edwin Gee Primary Care Provider: Luis Fisher Condition at Discharge: Stable Discharge Disposition: Home, Self Care Discharge Facility Name: home - DIAGNOSES Discharge Diagnoses with Status of Each Condition: (1) Alcohol withdrawal well control for pt's acute alcohol withdrawal. pt is alert and oriented. pt tolerate regular without nausea or vomiting. pt's tremor is well controlled. pt clearly requested to be discharged to home on today. pt walked Independently when I assessed pt, and social services counselor Francisca was at pt's room, and pt's ex- at phone at the same time. pt's ex- agreed to greens picker pt and transport him to home. pt is prescribed Librium PRN for alcohol withdrawal. pt was assessed by social services counselor for safety discharge planning. social services counselor help pt arrange to alcohol rehab. pt state he will not drink any more alcohol, and he will go to alcohol rehab on next Thursday10/15/21. I also educated pt about medication L ibrium's effective and side effective. order nurse print Librium medication information for pt. (2) Alcohol intoxication resolved. strongly advise pt quit alcohol. pt is prescribed Librium PRN, , and vitamin B1. pt was arranged to alcohol rehab. (3) Hypoxia resolved (4) Alcoholic ketoacidosis resolved (5) Hypokalemia resolved (6) Elevated lactic acid level resolved (7) Suicidal ideations per social services counselor assessment, resolved. pt clearly state to me he has no more suicidal ideation. (8) Elevated liver enzymes resolved. liver enzyme became normal arrange. (9) chronic tinnitus advise pt walk slowly and safely, followup with PCP and ENT surgeon as out-pt (10) Acute sinusitis resolved. pt finished the treatment course at hospital. (11)thrombocytopenia significantly improved. Plt is 113 now. - HPI History of Present Illness: This is a 51-year-old male with a past medical history significant for heavy alcohol abuse, chronic tinnitus, depression and anxiety, who is brought to the emergency department for acutely alcoholic intoxication and altered mental status. pt's serum alcohol level is close to 300. pt was brought to ER 5 days with alcoholic intoxication. Pt is alert, not on somnolent but very confused. he tried to pull his IV line at ER bed. he could not provide medical history. pt's ex- is at the bedside to help provide medical history. she report pt's last alcohol drinking is about 10 hours with 2 once of vodka. Pt continue to have nausea or vomiting for several days, no hematemesis reported. She report pt is living with her but his room is covered in feces and urine. pt had a hospitalization in late July of 2021 for alcohol withdrawal, nausea, vomitin g, and alcoholic ketoacidosis and severe hyponatremia. Per pt's ex- report pt has been suicide ideation for couple of months as well. per ER provider, DCR would be involuntarily detain him for gravely disabled if pt could be medical clear. Pt's CT of head reveals No evidence of acute stroke, hemorrhage or mass, With acute sinusitis. Chest x-ray reveals without Acute abnormality identified. Route lab test significantly reveal potassium 2.5, lactic acid 3.6, elevated liver enzyme, ammonia 40, small ketones, glucose 136. In ER, patient is afebrile, initially pt present slight tachycardia, room air at 96%, then pt has 98% on 4 liter of O2 Discussed the care goal with pt's ex-, she would like to keep on Full code now. after she discussed with her son, then she might change his code status for pt. - ALLERGIES Allergies/Adverse Reactions: Allergies Allergy/AdvReac Type Severity Reaction Status Date / Time No Known Drug Allergies Allergy Verified 10/05/21 14:03 - MEDICATIONS Home Medications: Ambulatory Orders Medication Instructions Recorded Confirmed traMADol [Ultram] 50 mg PO Q6H PRN 01/25/21 10/06/21 Alprazolam [Xanax] 0.25 mg PO QPM PRN 10/06/21 10/06/21 Omeprazole Magnesium 20 mg PO DAILY 10/06/21 10/06/21 Pnv No.95/Ferrous Fum/Folic AC 1 each PO DAILY #30 tablet 10/11/21 [ Tablet] Thiamine [Vitamin B-1] 100 mg PO DAILY #30 tablet 10/11/21 chlordiazePOXIDE [Librium] 25 mg PO Q12H PRN #8 cap 10/11/21 - PHYSICAL EXAM AT DISCHARGE General Appearance: positive: No acute distress, Alert. negative: Lethargic Eyes Bilateral: positive: Normal inspection, No lid inflammation ENT: positive: ENT inspection nml, No signs of dehydration. negative: Purulent nasal drainage Neck: positive: Nml inspection, Trachea midline. negative: Tracheal deviation Respiratory: positive: Chest non-tender, No respiratory distress. negative: Wheezes Cardiovascular: positive: Regular rate & rhythm, No murmur. negative: Tachycardia, Bradycardia, Systolic murmur Peripheral Pulses: positive: 2+ Abdomen: positive: Non-tender, Nml bowel sounds, No distention. negative: Tenderness Back: positive: Nml inspection Skin: positive: Color nml, Warm, Dry. negative: Cyanosis Extremities: positive: Non-tender, Full ROM, Nml appearance Neurologic/Psychiatric: positive: Oriented x3, Motor nml, Sensation nml, Mood/affect nml. negative: Weakness, Sensory loss, Facial droop, Slurred/abnml speech, Depressed mood/affect - LABS Result Diagrams: 10/11/21 06:00 10/11/21 06:00 - FOLLOW UP Follow Up: you really want to go to home on today. television maintenance worker help you find alcohol rehab for you, and you state you will go to alcohol rehab on next Thursday10/15/21. You are prescribed librium to help your alcohol withdrawal as needed. You are also prescribed and Vitamin B1 for you. Strongly advise you quit alcohol. You may follow-up with your PCP in 1 week, go to alcohol rehab on next Thursday10/15/21. Should your symptoms return or worse, you may present to ER or call 911 for help. - TIME SPENT Time Spent in Discharge (Minutes): 30
[2021-10-11] MEDS ORDERED: chlordiazePOXIDE 25 MG CAPSULE PO SCH (21:00)
== END 2021-10-11 18:30 | disposition home or self-care (01) | DRG 897 ==
LOC: EDUNIT# → ED 13:58 → MS2 16:19
PROVIDERS: ADMIT Nurse Practitioner Gerontology; ATTEND Nurse Practitioner Gerontology
DX: F10.129 Alcohol abuse with intoxication, unspecified (principal); E87.2 Acidosis; R45.851 Suicidal ideations; F10.139 Alcohol abuse with withdrawal, unspecified; Y90.8 Blood alcohol level of 240 mg/100 ml or more; F32.A Depression, unspecified; F41.9 Anxiety disorder, unspecified; H93.19 Tinnitus, unspecified ear; J01.90 Acute sinusitis, unspecified; D69.6 Thrombocytopenia, unspecified; K21.9 Gastro-esophageal reflux disease without esophagitis; K44.9 Diaphragmatic hernia without obstruction or gangrene; R09.02 Hypoxemia; R74.01 Elevation of levels of liver transaminase levels; Z20.822 Contact with and (suspected) exposure to COVID-19; Z79.899 Other long term (current) drug therapy; Z86.73 Personal history of transient ischemic attack (TIA), and cerebral infarction without residual deficits
CPT/HCPCS: 0202U; 36415; 36600; 51702; 70450; 71045; 73620; 80048; 80053; 80306; 80307; 80320; 80329; 81001; 82009; 82140; 82803; 83605; 83690; 83735; 84100; 84443; 85025; 85610; 96361; 96374; 99285; A9270; J2060; J3411; J7040; 81003; 87086

== ENCOUNTER 2021-11-13 08:24 | Outpatient (CLI) | payer OTHER | END 2021-11-13 08:25 | disposition critical access hospital (66) | LOC: EMS 08:24 | DX: R41.82 Altered mental status, unspecified (principal); R06.9 Unspecified abnormalities of breathing; W19.XXXA Unspecified fall, initial encounter; Y92.009 Unspecified place in unspecified non-institutional (private) residence as the place of occurrence of the external cause | CPT/HCPCS: A0425; A0427 ==

== ENCOUNTER 2021-11-13 08:34 | Emergency (ER) | payer OTHER ==
[2021-11-13] MEDS ORDERED: SODIUM CHLORIDE 0.9% 1,000 ML IV STA (08:48)
[2021-11-13 09:03] LABS: BASOPHILS % (AUTO) 0.3 %; EOSINOPHILS % (AUTO) 0.3 %; HCT - HEMATOCRIT 44.4 % (42.0-52.0); HGB - HEMOGLOBIN 16.1 g/dL (14.0-18.0); LYMPHOCYTES # (AUTO) 1.8 10^3/uL (1.5-3.5); LYMPHOCYTES % (AUTO) 15.2 %; MEAN CORPUSCULAR HEMOGLOBIN 33.5 pg (27.0-31.0); MEAN CORPUSCULAR HGB CONC 36.3 g/dL (32.0-36.0); MEAN CORPUSCULAR VOLUME 92.3 fL (80.0-94.0); MEAN PLATELET VOLUME 9.4 fL (7.4-11.4); MONOCYTES # (AUTO) 0.5 10^3/uL (0.0-1.0); MONOCYTES % (AUTO) 4.4 %; NEUTROPHILS # (AUTO) 9.5 10^3/uL (1.5-6.6); NEUTROPHILS % (AUTO) 79.2 %; PLT - PLATELET COUNT 151 10^3/uL (130-450); RED BLOOD COUNT 4.81 10^6/uL (4.70-6.10); RED CELL DISTRIBUTION WIDTH 11.9 % (12.0-15.0); WHITE BLOOD COUNT 11.9 x10^3/uL (4.8-10.8)
[2021-11-13 09:14] LABS: ALBUMIN 4.5 g/dL (3.2-5.5); ALBUMIN/GLOBULIN RATIO 1.6 (1.0-2.2); BILIRUBIN,TOTAL 0.9 mg/dL (0.2-1.0); CALCIUM 8.6 mg/dL (8.5-10.3); CREATININE 0.9 mg/dL (0.6-1.2); ETOH - ETHANOL 437.9 mg/dL; POTASSIUM 3.2 mmol/L (3.5-5.0); TOTAL PROTEIN 7.3 g/dL (6.7-8.2)
--- NOTE | 2021-11-13 09:24 | CT Report ---
PROCEDURE: HEAD WO INDICATIONS: found down, unresponsive TECHNIQUE: Noncontrast 4.5 mm thick angled axial sections acquired from the foramen magnum to the vertex. For r adiation dose reduction, the following was used: automated exposure control, adjustment of mA and/or kV according to patient size. COMPARISON: 10/05/2021. FINDINGS: Image quality: Excellent. CSF spaces: Basal cisterns are patent. No extra-axial fluid collections. Ventricles are normal in size and shape. Brain: No midline shift. No intracranial masses or hemorrhage. Yuan-white matter interface is norm al. Skull and face: Calvarium and visualized facial bones are intact, without suspicious lesions. Sinuses: Visualized sinuses and mastoids are clear. IMPRESSION: CT head without acute intracranial abnormalities. No evidence for mass or mass effect. N o acute intracranial hemorrhage. No acute calvarial fractures. Reviewed by: Jacob Young MD on 11/13/2021 8:23 AM [facility] Approved by: Jacob Young MD on 11/13/2021 8:23 AM [facility] Station ID: [id number]
--- NOTE | 2021-11-13 11:51 | ED Physician Documentation ---
History of Present Illness - Stated complaint Stated Complaint: FOUND DOWN/ETOH - Chief complaint Chief Complaint: Neuro - History obtained from History obtained from: Patient, EMS - Additonal information Additional information: The patient is brought to the emergency department by EMS for chief complaint of "found down at home". The patient is well-known to emergency department for alcohol abuse and per medics, appears to been drinking again This morning. He apparently was found on the floor by his , who then called EMS. It was not clear whether he had had a head injury. The patient is able to answer occasional very simple questions, but is extremely drowsy and appears intoxicated, and unable to give much other information. Review of Systems Unable to obtain: Unresponsive, Intoxicated PD PAST MEDICAL HISTORY - Past Medical History Cardiovascular: None Respiratory: None Neuro: CVA, Migraines, Other Endocrine/Autoimmune: None GI: GERD, Hiatal hernia, Other : Other HEENT: Chronic hearing loss, Other Psych: Depression, Anxiety Musculoskeletal: None Derm: None - Past Surgical History Past Surgical History: No HEENT: Tonsil/Adenoidectomy, Other - Present Medications Home Medications: Ambulatory Orders Medication Instructions Recorded Confirmed traMADol [Ultram] 50 mg PO Q6H PRN 01/25/21 10/06/21 Alprazolam [Xanax] 0.25 mg PO QPM PRN 10/06/21 10/06/21 Omeprazole Magnesium 20 mg PO DAILY 10/06/21 10/06/21 Pnv No.95/Ferrous Fum/Folic AC 1 each PO DAILY #30 tablet 10/11/21 [ Tablet] Thiamine [Vitamin B-1] 100 mg PO DAILY #30 tablet 10/11/21 chlordiazePOXIDE [Librium] 25 mg PO Q12H PRN #8 cap 10/11/21 Alprazolam [Xanax] 1 mg PO QPM PRN #30 tablet 11/13/21 Ondansetron Odt [Zofran] 4 mg TL Q6H PRN #20 tablet 11/13/21 chlordiazePOXIDE [Librium] 25 mg PO BID #6 cap 11/13/21 traMADol [Ultram] 50 mg PO Q6H #60 tablet 11/13/21 - Allergies Allergies/Adverse Reactions: Allergies Allergy/AdvReac Type Severity Reaction Status Date / Time No Known Drug Allergies Allergy Verified 11/13/21 08:44 - Social History Does the pt smoke?: No Smoking Status: Never smoker Does the pt drink ETOH?: Yes Does the pt have substance abuse?: No - Immunizations Immunizations are current?: Yes - POLST Patient has POLST: No POLST Status: Full Code PD ED PE NORMAL - Vitals Vital signs reviewed: Yes - General General: No acute distress, Well developed/nourished, Other (Heavily drowsy, otherwise no apparent distress) - HEENT HEENT: Atraumatic, PERRL, EOMI, Moist mucous membranes - Neck Neck: Supple, no meningeal sign - Cardiac Cardiac: RRR, No murmur - Respiratory Respiratory: No respiratory distress, Clear bilaterally - Abdomen Abdomen: Soft, Non tender, Non distended - Derm Derm: Normal color, Warm and dry, No rash - Extremities Extremities: No deformity, No edema - Neuro Neuro: Other (Moves all 4 extremities, heavily drowsy but does arouse with loud voice or light physical stimulation.) - Psych Psych: Normal mood, Normal affect Results - Vitals Vitals: Vital Signs - 24 hr 11/13/21 11/13/21 11/13/21 08:44 09:17 09:30 Temperature 36.2 C L Heart Rate 95 97 97 Respiratory 17 18 18 Rate Blood Pressure 117/79 130/79 128/71 O2 Saturation 96 99 95 11/13/21 11/13/21 11/13/21 10:00 10:30 11:30 Temperature Heart Rate 98 91 105 H Respiratory 17 20 14 Rate Blood Pressure 126/89 H 128/75 111/68 O2 Saturation 100 100 96 11/13/21 11/13/21 12:23 12:53 Temperature Heart Rate 108 H 100 Respiratory 20 12 Rate Blood Pressure 142/80 H 156/82 H O2 Saturation 94 95 Oxygen O2 Source Room air Oxygen Flow Rate 2 - Labs Labs: Laboratory Tests 11/13/21 11/13/21 08:57 08:57 WBC 11.9 H RBC 4.81 Hgb 16.1 Hct 44.4 MCV 92.3 MCH 33.5 H MCHC 36.3 H RDW 11.9 L Plt Count 151 MPV 9.4 Neut # (Auto) 9.5 H Lymph # (Auto) 1.8 Dent # (Auto) 0.5 Eos # (Auto) 0.0 Baso # (Auto) 0.0 Absolute Nucleated RBC 0.00 Nucleated RBC % 0.0 Sodium 134 L Potassium 3.2 L Chloride 85 L Carbon Dioxide 31 Anion Gap 18.0 H BUN 11 Creatinine 0.9 Estimated GFR (MDRD) 89 Glucose 142 H Calcium 8.6 Total Bilirubin 0.9 AST 57 H ALT 41 Alkaline Phosphatase 89 Total Protein 7.3 Albumin 4.5 Globulin 2.8 Albumin/Globulin Ratio 1.6 Lipase 70 H Ethyl Alcohol 437.9 - Rads (name of study) CT head Radiology: Final report received, EMP read indepedently, See rad report (No acute findings) PD MEDICAL DECISION MAKING - ED course Complexity details: reviewed results, re-evaluated patient, considered differential, d/w patient, d/w family ED course: The patient was worked up with labs, which showed a slightly decreased potassium, as well as head CT, which was unremarkable. His alcohol level was well above 400. The patient was observed in the emergency department for about 4-1/2 hours, after which he was found to be more easily arousable. His ex- did come and pick him up and agreed to take him home, But given that he admits to recent chronic pain appointment while she was gone, she was concerned that his ongoing tinnitus would cause him to continue his destructive cycle of drinking since he did not have his analgesia. I have agreed to refill the patient's medications, but have discussed with the patient's ex- that she will need to be the customer account specialist of his medications, and this will not be done again from the emergency department. I have advised her to get the patient in the queue for an appointment immediately with both his primary care physician and his chronic pain provider. The patient is awake and talking at this point and no emergent condition has been identified beyond the patient's extreme intoxication. He is stable for discharge home with his ex-. Departure - Departure Disposition: Home, Self Care Clinical Impression: Alcohol intoxication Qualifiers: Complication of substance-induced condition: with delirium Qualified Code(s): F10.921 - Alcohol use, unspecified with intoxication delirium Condition: Stable Instructions: ED Alcohol Intoxication Prescriptions: chlordiazePOXIDE [Librium] 25 mg PO BID #6 cap traMADol [Ultram] 50 mg PO Q6H #60 tablet Alprazolam [Xanax] 1 mg PO QPM PRN #30 tablet PRN Reason: Anxiety Ondansetron Odt [Zofran] 4 mg TL Q6H PRN #20 tablet PRN Reason: Nausea / Vomiting Comments: Extensive testing, including CT scan of the head and blood work, have been done today. Your alcohol level was extremely high in the emergency department, at well above 400. The CT scan did not show any bleeding or other trouble within your brain. Your other laboratory studies look fairly good. You have a very slightly decreased potassium At 3.2. We have refilled your medications today, and you must take them only as directed. You will have to work with your outpatient physicians to get back on a schedule of seeing them to work out your medication regimen. The Librium or chlordiazepoxide, which has been prescribed is for Alcohol withdrawal only. This should not be taken concurrently with your alprazolam, and should only be needed for the next 72 hours. Please do not take this medication if you decide to drink again. Your prescriptions have been electronically transmitted to [facility] pharmacy in [place].
[2021-11-13 14:05] VITALS: BP 140/82
== END 2021-11-13 14:05 | disposition home or self-care (01) ==
LOC: EDUNIT# → ED 08:34
DX: F10.921 Alcohol use, unspecified with intoxication delirium (principal)
CPT/HCPCS: 36415; 80053; 80320; 83690; 85025; 96360; 99281

== ENCOUNTER 2021-12-01 12:18 | Outpatient (CLI) | payer OTHER | END 2021-12-01 12:19 | disposition E | LOC: EMS 12:18 ==